=== PATIENT | female | born 1930 | race Caucasian/White ===

== ENCOUNTER → 2017-08-21 | Outpatient (CLI) | payer OTHER ==
[2017-08-21 10:02] LABS: HEMATOCRIT 30.7 % (37-47); HEMOGLOBIN 10.5 g/dL (12.0-16.0); MEAN CELL VOLUME 91.9 fL (80-100); MEAN CORPUSCULAR HEMOGLOBIN 31.4 pg (25-34); MEAN CORPUSCULAR HGB CONC 34.2 g/dl (32-36); MEAN PLATELET VOLUME 9.1 fL (7.4-10.4); PLATELET COUNT 233 K/uL (130-400); RED CELL DISTRIBUTION WIDTH CV 15.1 % (11.5-14.5); RED CELL DISTRIBUTION WIDTH SD 51.1 fL (36.4-46.3); WHITE BLOOD COUNT 4.56 K/uL (4.8-10.8)
[2017-08-21 10:49] LABS: ALBUMIN 2.5 gm/dl (3.4-5.0); ALT/SGPT 26 U/L (12-78); AST/SGOT 28 U/L (15-37); BLOOD UREA NITROGEN 9 mg/dl (7-18); CALCIUM 8.5 mg/dl (8.5-10.1); CARBON DIOXIDE 30 mmol/L (21-32); CREATININE 0.65 mg/dl (0.60-1.20); GLUCOSE 82 mg/dl (70-99); POTASSIUM 3.3 mmol/L (3.5-5.1); SODIUM 137 mmol/L (136-145)
[2017-08-21 10:59] LABS: ALKALINE PHOSPHATASE 67 U/L (45-117); TOTAL PROTEIN 5.9 gm/dl (6.4-8.2)
== END ==
LOC: C.LABFOXAC 09:13
PROVIDERS: ATTEND Internal Medicine
DX: I48.0 Paroxysmal atrial fibrillation (principal); D64.9 Anemia, unspecified

== ENCOUNTER → 2017-08-22 | Outpatient (CLI) | payer OTHER | LOC: C.LABFOXAC 08:46 | PROVIDERS: ATTEND Internal Medicine | DX: Z79.899 Other long term (current) drug therapy (principal) ==

== ENCOUNTER → 2017-09-04 | Outpatient (CLI) | payer OTHER | END | disposition home or self-care (01) | LOC: C.LABFOXAC 08:17 | PROVIDERS: ATTEND Internal Medicine | DX: K74.60 Unspecified cirrhosis of liver (principal) ==

== ENCOUNTER → 2017-09-06 | Outpatient (CLI) | payer OTHER ==
--- NOTE | 2017-09-10 07:36 | CODING QUERY NO DIAGNOSIS ---
: 1930 Valid Physician Order Needed A valid physician order must be submitted in order to properly bill for the service(s) provided, including date of service(s), valid diagnosis, and physician signature. If these tests are done on a recurring basis the original physician order must be submitted in order to code and bill for the service(s) provided. Please fax us the original, signed physician order so that we may expedite billing to [phone] DOS 09/06/2017 * Potassium Thank you [facility] Information Management
== END | disposition home or self-care (01) ==
LOC: C.LABFOXAC 08:00
PROVIDERS: ATTEND Internal Medicine
DX: E87.6 Hypokalemia (principal)

== ENCOUNTER → 2017-09-21 | Outpatient (CLI) | payer OTHER ==
[2017-09-21 08:35] LABS: HEMATOCRIT 32.5 % (37-47); HEMOGLOBIN 11.2 g/dL (12.0-16.0); MEAN CELL VOLUME 92.6 fL (80-100); MEAN CORPUSCULAR HEMOGLOBIN 31.9 pg (25-34); MEAN CORPUSCULAR HGB CONC 34.5 g/dl (32-36); MEAN PLATELET VOLUME 9.5 fL (7.4-10.4); PLATELET COUNT 196 K/uL (130-400); RED CELL DISTRIBUTION WIDTH CV 14.9 % (11.5-14.5); RED CELL DISTRIBUTION WIDTH SD 50.3 fL (36.4-46.3); WHITE BLOOD COUNT 5.59 K/uL (4.8-10.8)
[2017-09-21 08:45] LABS: ALBUMIN 2.7 gm/dl (3.4-5.0); ALT/SGPT 44 U/L (12-78); BLOOD UREA NITROGEN 13 mg/dl (7-18); CALCIUM 8.8 mg/dl (8.5-10.1); CARBON DIOXIDE 27 mmol/L (21-32); CREATININE 0.73 mg/dl (0.60-1.20); GLUCOSE 88 mg/dl (70-99); POTASSIUM 3.9 mmol/L (3.5-5.1); SODIUM 136 mmol/L (136-145)
[2017-09-21 08:55] LABS: ALKALINE PHOSPHATASE 90 U/L (45-117); AST/SGOT 36 U/L (15-37); TOTAL PROTEIN 6.3 gm/dl (6.4-8.2)
== END ==
LOC: C.LABFOXAC 07:45
PROVIDERS: ATTEND Internal Medicine
DX: I48.0 Paroxysmal atrial fibrillation (principal); D64.9 Anemia, unspecified

== ENCOUNTER → 2017-10-17 | Outpatient (CLI) | payer OTHER | END | disposition home or self-care (01) | LOC: C.LABFOXDH 07:53 | PROVIDERS: ATTEND Internal Medicine Hospice and Palliative Medicine | DX: E03.9 Hypothyroidism, unspecified (principal) ==

== ENCOUNTER 2017-11-03 02:01 | Inpatient (IN) | payer OTHER ==
[2017-11-03] VITALS (31 sets, daily range): BP systolic 62–107; BP diastolic 42–66; PULSE 67–90; TEMP 36.2–36.8; O2SAT 92–100; BMI 19.9
[~2017-11-03] VITALS: Ht 167.6 cm; Wt 55.8 kg
[2017-11-03] MEDS ORDERED: FENTANYL CITRATE INJ 50 MCG/1 ML 2 ML VIAL IV STA (02:45)
[2017-11-03 03:01] LABS: BASO % 0.3 %; BASO ABS # 0.04 K/uL (0-0.2); EOS % 0.5 %; EOS ABS # 0.07 K/uL (0-0.5); HEMATOCRIT 34.2 % (37-47); HEMOGLOBIN 11.8 g/dL (12.0-16.0); IG# 0.04 K/uL (0.00-0.02); LYMPH % 10.5 %; LYMPH ABS # 1.47 K/uL (1.2-3.4); MEAN CELL VOLUME 89.5 fL (80-100); MEAN CORPUSCULAR HEMOGLOBIN 30.9 pg (25-34); MEAN CORPUSCULAR HGB CONC 34.5 g/dl (32-36); MEAN PLATELET VOLUME 8.9 fL (7.4-10.4); MONO % 7.6 %; MONO ABS # 1.07 K/uL (0.11-0.59); NEUT % 80.8 %; NEUT ABS # 11.37 K/uL (1.4-6.5); PLATELET COUNT 221 K/uL (130-400); RED CELL DISTRIBUTION WIDTH CV 13.7 % (11.5-14.5); RED CELL DISTRIBUTION WIDTH SD 45.1 fL (36.4-46.3); WHITE BLOOD COUNT 14.06 K/uL (4.8-10.8)
[2017-11-03 03:10] LABS: INR 1.1 (0.9-1.1); PTT PATIENT 23.2 SECONDS (21.0-31.0)
[2017-11-03 03:19] LABS: ALBUMIN 3.1 gm/dl (3.4-5.0); ALT/SGPT 30 U/L (12-78); AST/SGOT 31 U/L (15-37); BLOOD UREA NITROGEN 15 mg/dl (7-18); CALCIUM 8.5 mg/dl (8.5-10.1); CARBON DIOXIDE 27 mmol/L (21-32); CREATININE 0.92 mg/dl (0.60-1.20); GLUCOSE 139 mg/dl (70-99); POTASSIUM 4.1 mmol/L (3.5-5.1); SODIUM 136 mmol/L (136-145)
[2017-11-03 03:24] LABS: ALKALINE PHOSPHATASE 109 U/L (45-117); TOTAL PROTEIN 7.1 gm/dl (6.4-8.2)
--- NOTE | 2017-11-03 04:15 | EMERGENCY ROOM VISIT NOTE ---
History First contact with patient: 02:26 Chief Complaint: FALL Stated Complaint: FALL/HIP PAIN History of Present Illness The patient is a 87 year old female who presents to the Emergency Room via EMS for evaluation of left hip pain following a fall. The patient is from [facility] and is unsure how she fell tonight. She reports left hip pain due to falling on the hip. She rates her discomfort a 7/10. The pain is sharp and worse with any movement of the hip. The pain is more tolerable when she is laying still. She denies any other injuries, although does have some bruising to the left side of the forehead. She denies any previous injuries to this hip. She denies any numbness or weakness. She is able to move her left foot without any difficulty. Review of Systems A complete 10 point review of systems was reviewed with the patient with pertinent positives and negatives as per history of present illness. All else were negative. Past Medical/Surgical History Medical Problems: (1) Hip fracture (2) Hypothyroidism Social History Smoking Status: Never Smoker Housing Status: assisted living Physical Exam Vital Signs Date Time Temp Pulse Resp B/P (MAP) Pulse Ox O2 Delivery O2 Flow Rate FiO2 11/03/17 03:50 62 16 96/52 100 Room Air 11/03/17 03:47 78 16 84/50 95 Room Air 11/03/17 02:54 68 100 Room Air 11/03/17 02:09 36.3 84 20 150/76 92 Room Air Physical Exam VITALS: Vitals are noted on the nurse's note and reviewed by myself. Vital signs stable. GENERAL: This is an 87-year-old female, in no acute distress, sitting upright in bed, thin. SKIN: There is a large hematoma to the left forehead with a small abrasion centrally. HEAD: Normocephalic atraumatic. EARS: External auditory canals clear, tympanic membranes pearly schmidt without erythema or effusion bilaterally. No hemotympanum. EYES: Pupils equal round and reactive to light and accommodation. Extraocular movements intact. NECK: Supple without nuchal rigidity. Cervical spine is nontender. . HEART: Regular rate and rhythm without murmurs gallops or rubs. LUNGS: Clear to auscultation bilaterally without wheezes, rales or rhonchi. MUSCULOSKELETAL: The left leg is shortened and externally rotated. Tenderness to palpation of the left hip. Dorsalis pedis pulse 2+. Full range of motion of the left knee and ankle. NEURO: Patient was alert and oriented to person place and time. Normal sensation over the left lower extremity. Medical Decision & Procedures ER Provider Diagnostic Interpretation: CT HEAD: No acute intracranial hemorrhage. Cerebral atrophy and microvascular ischemic changes in the periventricular and subcortical white matter. Calvarium is intact. Mastoid air cells and paranasal sinuses are clear. Small scalp hematoma overlying the left frontal bone. CT C SPINE: No fracture or subluxation. Moderate multilevel cervical spondylosis. Most significant at the C5-C6 and C6- C7 levels. Mild levocurvature. Radiologist: Delfin Nettles DO CHEST X-RAY: No acute process. PELVIS/HIP: Comminuted, displaced fracture of the left femoral shaft. Laboratory Results 11/03/17 02:46 Red Blood Count 3.82, Mean Corpuscular Volume 89.5, Mean Corpuscular Hemoglobin 30.9, Mean Corpuscular Hemoglobin Concent 34.5, Mean Platelet Volume 8.9, Neutrophils (%) (Auto) 80.8, Lymphocytes (%) (Auto) 10.5, Monocytes (%) (Auto) 7.6, Eosinophils (%) (Auto) 0.5, Basophils (%) (Auto) 0.3, Neutrophils # (Auto) 11.37, Lymphocytes # (Auto) 1.47, Monocytes # (Auto) 1.07, Eosinophils # (Auto) 0.07, Basophils # (Auto) 0.04 11/03/17 02:46 Test 11/03/17 02:46 11/03/17 03:30 White Blood Count 14.06 K/uL (4.8-10.8) Red Blood Count 3.82 M/uL (4.2-5.4) Hemoglobin 11.8 g/dL (12.0-16.0) Hematocrit 34.2 % (37-47) Mean Corpuscular Volume 89.5 fL (80-100) Mean Corpuscular Hemoglobin 30.9 pg (25-34) Mean Corpuscular Hemoglobin Concent 34.5 g/dl (32-36) Platelet Count 221 K/uL (130-400) Mean Platelet Volume 8.9 fL (7.4-10.4) Neutrophils (%) (Auto) 80.8 % Lymphocytes (%) (Auto) 10.5 % Monocytes (%) (Auto) 7.6 % Eosinophils (%) (Auto) 0.5 % Basophils (%) (Auto) 0.3 % Neutrophils # (Auto) 11.37 K/uL (1.4-6.5) Lymphocytes # (Auto) 1.47 K/uL (1.2-3.4) Monocytes # (Auto) 1.07 K/uL (0.11-0.59) Eosinophils # (Auto) 0.07 K/uL (0-0.5) Basophils # (Auto) 0.04 K/uL (0-0.2) RDW Standard Deviation 45.1 fL (36.4-46.3) RDW Coefficient of Variation 13.7 % (11.5-14.5) Immature Granulocyte % (Auto) 0.3 % Immature Granulocyte # (Auto) 0.04 K/uL (0.00-0.02) Prothrombin Time 11.1 SECONDS (9.0-12.0) Prothromb Time International Ratio 1.1 (0.9-1.1) Activated Partial Thromboplast Time 23.2 SECONDS (21.0-31.0) Partial Thromboplastin Ratio 0.9 Anion Gap 6.0 mmol/L (3-11) Est Creatinine Clear Calc Drug Dose 37.2 ml/min Estimated GFR () 64.4 Estimated GFR (Non- 55.6 BUN/Creatinine Ratio 15.9 (10-20) Calcium Level 8.5 mg/dl (8.5-10.1) Total Bilirubin 0.4 mg/dl (0.2-1) Direct Bilirubin 0.1 mg/dl (0-0.2) Aspartate Amino Transf (AST/SGOT) 31 U/L (15-37) Alanine Aminotransferase (ALT/SGPT) 30 U/L (12-78) Alkaline Phosphatase 109 U/L (45-117) Troponin I < 0.015 ng/ml (0-0.045) Total Protein 7.1 gm/dl (6.4-8.2) Albumin 3.1 gm/dl (3.4-5.0) Urine Color YELLOW Urine Appearance CLOUDY (CLEAR) Urine pH 6.0 (4.5-7.5) Urine Specific [place] 1.009 (1.000-1.030) Urine Protein NEG (NEG) Urine Glucose (UA) NEG (NEG) Urine Ketones NEG (NEG) Urine Occult Blood 1+ (NEG) Urine Nitrite NEG (NEG) Urine Bilirubin NEG (NEG) Urine Urobilinogen NEG (NEG) Urine Leukocyte Esterase LARGE (NEG) Urine WBC (Auto) >30 /hpf (0-5) Urine RBC (Auto) 0-4 /hpf (0-4) Urine Hyaline Casts (Auto) 1-5 /lpf (0-5) Urine Epithelial Cells (Auto) 5-10 /lpf (0-5) Urine Bacteria (Auto) 2+ (NEG) Urine Pathogenic Casts /lpf (0) Medications Administered Medications (Trade) Dose Ordered Sig/Viky Route Start Time Stop Time Status Last Admin Dose Admin Fentanyl Citrate (Fentanyl Inj) 50 mcg NOW STAT IV 11/03/17 02:45 11/03/17 02:47 DC 11/03/17 02:52 50 MCG ED Course The patient was evaluated as above. Labs were drawn and IV access was obtained. Patient was medicated with 50 mcg fentanyl for pain. Patient was reevaluated and findings were discussed. Case was discussed with the [facility] resident, Dr. Garcia. They agreed to evaluate the patient for admission. Medical Decision Differential diagnosis includes hip fracture, hip dislocation, contusion, intracranial bleed, C-spine fracture, among others. The patient is an 87-year-old female who presents today complaining of left hip pain after a fall. Labs revealed mild leukocytosis. X-ray of the pelvis/left hip showed an acute fracture as described above. Patient will be evaluated by the [facility] hospitalist team for further evaluation and inpatient management. Medication Reconcilliation Current Medication List: was personally reviewed by ak Blood Pressure Screening Patient's blood pressure: Low blood pressure (may be pt's baseline- will be followed by hospitalist) Impression Primary Impression: Hip fracture Departure Information Referrals Adrianne Gonzales (PCP) Patient Instructions My [facility] Health Problem Qualifiers Primary Impression: Hip fracture Encounter type: initial encounter Fracture type: closed Laterality: left Qualified Codes: S72.002A - Fracture of unspecified part of neck of left femur , initial encounter for closed fracture
[2017-11-03] MEDS ORDERED: SOD PHOSPHATE/SOD BIPHOSPHATE ENEMA 132 ML BTL PR PRN (05:00)
[2017-11-03] MEDS ORDERED: POLYETHYLENE (MIRALAX) 17 GM PACK PO PRN (05:00)
[2017-11-03] MEDS ORDERED: MAGNESIUM HYDROXIDE SUSP 30 ML UDC PO PRN ×2 (05:00→11:30)
[2017-11-03] MEDS ORDERED: ONDANSETRON INJ 2 MG/ML 2 ML VIAL IV PRN ×3 (05:00→11:30)
[2017-11-03] MEDS ORDERED: MoRPHine SULFATE 2 MG/ML CARP IV PRN (05:00)
[2017-11-03] MEDS ORDERED: NALOXONE HCL 0.4 MG/1 ML VIAL/CARP IV PRN (05:00)
[2017-11-03] MEDS ORDERED: BISACODYL 10 MG SUPP PR PRN (05:00)
[2017-11-03] MEDS ORDERED: MoRPHine SULFATE 4 MG/ML 1 ML CARP\\VIAL IV PRN ×2 (05:00→11:30)
--- NOTE | 2017-11-03 05:29 | History and Physical ---
History & Physical Date & Time of Service: Nov 03, 2017 at 05:03 Chief Complaint: Fall/Hip Pain Primary Care Physician: Adrianne Gonzales History of Present Illness Source: patient, hospital records Patient is an 87 year old female who lives at [facility] that was cooking dinner earlier this evening and had a fall to the ground as she lost her footing and slipped. She did hit her head and she also fell onto her left side. She denies any pre-syncope, loss of consciousness, urinary/bowel incontinence, tongue biting or seizure like activity. Patient does not that she has been more confused over the past few days. She denies any dysuria, hematuria, ab pain, back pain, fevers or chills. She says that her pain is over her left hip. It is sharp in nature and worse with movement. She rates the pain as a 7/10. She denies any numbness or tingling down the leg. In the ED her blood pressure was mildly elevated at 150/76 yet her other vital signs were normal. Her labs were significant for a WCC of 14, Hgb of 11.8. Her UA did appear to show a urinary tract infection. Xray of her left hip did show a hip fracture. She had a CT of her cervical spine and head which did not show any acute abnormalities. Past Medical/Surgical History Medical Problems: (1) Hip fracture (2) Hypothyroidism Family History Noncontributory Social History Smoking Status: Never Smoker Smokeless Tobacco Use: No Alcohol Use: none Drug Use: none Marital Status: Housing status: lives alone Occupational Status: retired Immunizations History of Influenza Vaccine: Unknown History of Tetanus Vaccine?: Unknown History of Pneumococcal: Unknown History of Hepatitis B Vaccine: Unknown Allergies Coded Allergies: No Known Allergies (Unverified , 11/03/17) Review of Systems Constitutional: + weakness, No fever, No chills Eyes: No worsening of vision, No eye pain, No diplopia ENT: No hearing loss, No nasal symptoms, No sore throat, No tinnitus, No trouble swallowing Respiratory: No cough, No sputum, No shortness of breath Cardiovascular: No chest pain, No orthopnea, No edema, No palpitations Abdomen: No pain, No nausea, No vomiting, No diarrhea, No constipation Musculoskeletal: + joint pain, + muscle pain, No swelling, No calf pain Genitourinary - Female: No dysuria, No urinary frequency, No urinary urgency, No urinary incontinence Neurologic: + weakness, No memory loss, No paralysis, No numbness/tingling, No balance problems Hematologic / Lymphatic: No abnormal bleeding/bruising, No clotting problems Integumentary: No rash, No itch, No new/changing skin lesions Physical Exam Vital Signs Date Time Temp Pulse Resp B/P (MAP) Pulse Ox O2 Delivery O2 Flow Rate FiO2 11/03/17 03:50 62 16 96/52 100 Room Air 11/03/17 03:47 78 16 84/50 95 Room Air 11/03/17 02:54 68 100 Room Air 11/03/17 02:09 36.3 84 20 150/76 92 Room Air General Appearance: WD/WN, no apparent distress, + thin Head: + pertinent finding (hematoma over left scalp, painful to palpation) Eyes: normal inspection, PERRL ENT: normal ENT inspection, hearing grossly normal, pharynx normal Neck: supple, no adenopathy, no JVD, no carotid bruits, trachea midline Respiratory/Chest: lungs clear, no respiratory distress, no accessory muscle use Cardiovascular: regular rate, rhythm, no murmur, normal peripheral pulses Abdomen/GI: normal bowel sounds, non tender, soft Extremities/Musculoskelatal: normal inspection, no calf tenderness, no pedal edema, non-tender, + pertinent finding (left knee flexed and hip externall rotated, left hip swelling with pain to palpation over the left hip) Neurologic/Psych: microsoft crm developer II-XII nml as tested, alert, normal mood/affect, + disoriented (orientated to person, and time but not place), + pertinent finding (sensation is intact in the distal extremities, 5/5 power on R lower extremity, unable to move left hip secondary to pain) Skin: normal color, warm/dry, no rash Diagnostics Laboratory Results Results Past 24 Hours Test 11/03/17 02:46 11/03/17 03:30 Range/Units White Blood Count 14.06 4.8-10.8 K/uL Red Blood Count 3.82 4.2-5.4 M/uL Hemoglobin 11.8 12.0-16.0 g/dL Hematocrit 34.2 37-47 % Mean Corpuscular Volume 89.5 80-100 fL Mean Corpuscular Hemoglobin 30.9 25-34 pg Mean Corpuscular Hemoglobin Concent 34.5 32-36 g/dl Platelet Count 221 130-400 K/uL Mean Platelet Volume 8.9 7.4-10.4 fL Neutrophils (%) (Auto) 80.8 % Lymphocytes (%) (Auto) 10.5 % Monocytes (%) (Auto) 7.6 % Eosinophils (%) (Auto) 0.5 % Basophils (%) (Auto) 0.3 % Neutrophils # (Auto) 11.37 1.4-6.5 K/uL Lymphocytes # (Auto) 1.47 1.2-3.4 K/uL Monocytes # (Auto) 1.07 0.11-0.59 K/uL Eosinophils # (Auto) 0.07 0-0.5 K/uL Basophils # (Auto) 0.04 0-0.2 K/uL RDW Standard Deviation 45.1 36.4-46.3 fL RDW Coefficient of Variation 13.7 11.5-14.5 % Immature Granulocyte % (Auto) 0.3 % Immature Granulocyte # (Auto) 0.04 0.00-0.02 K/uL Prothrombin Time 11.1 9.0-12.0 SECONDS Prothromb Time International Ratio 1.1 0.9-1.1 Activated Partial Thromboplast Time 23.2 21.0-31.0 SECONDS Partial Thromboplastin Ratio 0.9 Sodium Level 136 136-145 mmol/L Potassium Level 4.1 3.5-5.1 mmol/L Chloride Level 103 98-107 mmol/L Carbon Dioxide Level 27 21-32 mmol/L Anion Gap 6.0 3-11 mmol/L Blood Urea Nitrogen 15 7-18 mg/dl Creatinine 0.92 0.60-1.20 mg/dl Est Creatinine Clear Calc Drug Dose 37.2 ml/min Estimated GFR () 64.4 Estimated GFR (Non- 55.6 BUN/Creatinine Ratio 15.9 10-20 Random Glucose 139 70-99 mg/dl Calcium Level 8.5 8.5-10.1 mg/dl Total Bilirubin 0.4 0.2-1 mg/dl Direct Bilirubin 0.1 0-0.2 mg/dl Aspartate Amino Transf (AST/SGOT) 31 15-37 U/L Alanine Aminotransferase (ALT/SGPT) 30 12-78 U/L Alkaline Phosphatase 109 45-117 U/L Troponin I < 0.015 0-0.045 ng/ml Total Protein 7.1 6.4-8.2 gm/dl Albumin 3.1 3.4-5.0 gm/dl Urine Color YELLOW Urine Appearance CLOUDY CLEAR Urine pH 6.0 4.5-7.5 Urine Specific [place] 1.009 1.000-1.030 Urine Protein NEG NEG Urine Glucose (UA) NEG NEG Urine Ketones NEG NEG Urine Occult Blood 1+ NEG Urine Nitrite NEG NEG Urine Bilirubin NEG NEG Urine Urobilinogen NEG NEG Urine Leukocyte Esterase LARGE NEG Urine WBC (Auto) >30 0-5 /hpf Urine RBC (Auto) 0-4 0-4 /hpf Urine Hyaline Casts (Auto) 1-5 0-5 /lpf Urine Epithelial Cells (Auto) 5-10 0-5 /lpf Urine Bacteria (Auto) 2+ NEG Urine Pathogenic Casts 0 /lpf Microbiology Results 11/03/17 Urine Culture, Received Pending Diagnostic Radiology CT HEAD: No acute intracranial hemorrhage. Cerebral atrophy and microvascular ischemic changes in the periventricular and subcortical white matter. Calvarium is intact. Mastoid air cells and paranasal sinuses are clear. Small scalp hematoma overlying the left frontal bone. CT C SPINE: No fracture or subluxation. Moderate multilevel cervical spondylosis. Most significant at the C5-C6 and C6- C7 levels. Mild levocurvature. Left Hip Xray displaced left hip fracture EKG Sinus w/ PVC's Impression Assessment and Plan 87 year old female with PMH of hypothyroidism is here with a left hip fracture secondary to a fall likely due to UTI Left hip fracture - Ortho consult placed - IV morphine 2mg q2prn and zofran 4mg q4 prn - Hip to be placed in traction - Ro in place - NPO (patient states she is extremely hungry; I told her that if ortho want to take her to surgery today then she will need to remain NPO however if they decide to go tomorrow then the doctors will place a food order for her) UTI - levofloxacin 500mg IV once daily - urine culture pending - IVF NS Maintenance w/ 100mls/hr - [facility] Hypothyroidism - patient states she is on very low dose but is unsure of dose - daughter is going to get dose today for us and let us know DVT prophylaxis - lovenox 40mg subq DNR Attending addendum: I have physically seen this patient, have supervised the medical residents activities, and agree with the H&P unless as otherwise noted. Assessment and Plan: Left hip fracture-- Admit to medical surgical floor. N.p.o. status IV fluids Morphine 2 mg IV every 2 hours as needed. Zofran 4 mg IV every 6 hours as needed. Pantoprazole 40 mg IV daily. Consult orthopedics. UTI-- Start on ceftriaxone 1 g IV daily. Follow urine culture and sensitivity. Advanced Directives Existing Advance Directive: Yes Existing Living Will: Yes Resuscitation Status DNR VTE Prophylaxis Will order VTE Prophylaxis: Yes
[2017-11-03] MEDS ORDERED: MoRPHine SULFATE 2 MG/ML CARP ONE (05:51)
[2017-11-03] MEDS ORDERED: PATIENT'S ALLERGY INFO NEEDS ENTERED SCH (06:15)
[2017-11-03] MEDS ORDERED: INFLUENZA VIRUS QUAD VACCINE 0.5 ML SYR IM. ONE (06:45)
[2017-11-03] MEDS ORDERED: PNEUMOCOCCAL POLYSACCHARIDES 25 MCG/0.5 ML VIAL/SYR IM. ONE (06:45)
[2017-11-03] MEDS ORDERED: PNEUMOCOCCAL ADMINISTRATION CHARGE ONE (06:45)
[2017-11-03] MEDS ORDERED: INFLUENZA ADMINISTRATION CHARGE ONE (06:45)
--- NOTE | 2017-11-03 06:48 | DIAGNOSTIC IMAGING REPORT ---
CHEST ONE VIEW PORTABLE CLINICAL HISTORY: fall trauma. Pain. COMPARISON STUDY: No previous studies for comparison. FINDINGS: The bones soft tissues and hemidiaphragms are normal. The cardiomediastinal silhouette is normal. The lungs are clear. The pulmonary vasculature is normal. IMPRESSION: Negative chest. The above report was generated using voice recognition software. It may contain grammatical, syntax or spelling errors. Electronically signed by: Dayton Cha M.D. 11/03/2017 6:47 AM Dictated Date/Time: 11/03/2017 6:46 AM
--- NOTE | 2017-11-03 06:55 | DIAGNOSTIC IMAGING REPORT ---
CERVICAL SPINE W/O CT DOSE: 1007.69 mGy.cm HISTORY: Trauma. Pain. fall, head injury TECHNIQUE: Multiaxial CT images of the cervical spine were performed and reformatted in the sagittal and coronal plane without the use of contrast. A dose lowering technique was utilized adhering to the principles of ALARA. COMPARISON: None. FINDINGS: No fractures. No subluxation. Prevertebral soft tissues and the C1-C2 interval are intact. No pneumothorax. Degenerative disc change throughout. This is most prominent from C5 through C7. IMPRESSION: Degenerative change. No acute bony abnormality. The above report was generated using voice recognition software. It may contain grammatical, syntax or spelling errors. Electronically signed by: Dayton Cha M.D. 11/03/2017 6:54 AM Dictated Date/Time: 11/03/2017 6:53 AM
--- NOTE | 2017-11-03 06:56 | DIAGNOSTIC IMAGING REPORT ---
HEAD WITHOUT CONTRAST (CT) CT DOSE: HISTORY: Trauma fall, head injury, hematoma left forehead TECHNIQUE: Multiaxial CT images of the head were performed without the use of intravenous contrast. A dose lowering technique was utilized adhering to the principles of ALARA. Comparison: None. Findings: The paranasal sinuses and mastoid air cells are clear. The calvarium and skull base are intact. The ventricles and sulci are within normal limits. There is no mass, hematoma, midline shift, or acute infarct. Impression: No acute intracranial abnormality. Chronic small vessel and atrophic change. The above report was generated using voice recognition software. It may contain grammatical, syntax or spelling errors. Electronically signed by: Dayton Cha M.D. 11/03/2017 6:55 AM Dictated Date/Time: 11/03/2017 6:54 AM
--- NOTE | 2017-11-03 06:58 | DIAGNOSTIC IMAGING REPORT ---
L PELVIS/UNILATERAL HIP 2-3VIEWS CLINICAL HISTORY: fal trauma. Pain. COMPARISON: None. DISCUSSION: Oblique fracture proximal femoral shaft with evidence for intertrochanteric extension. Moderate superior migration of the left femoral shaft. No evidence for dislocation. No evidence for acetabular protrusion. There is no evidence for soft tissue swelling. IMPRESSION: Oblique reaction or proximal femoral shaft with intertrochanteric extension. Superior migration femoral shaft. No evidence of dislocation. The above report was generated using voice recognition software. It may contain grammatical, syntax or spelling errors. Electronically signed by: Dayton Cha M.D. 11/03/2017 6:57 AM Dictated Date/Time: 11/03/2017 6:56 AM
[2017-11-03] MEDS ORDERED: SODIUM CHLORIDE 0.9% 1000ML 1,000 ML IV SCH ×2 (07:00→13:45)
[2017-11-03] MEDS: LEVOFLOXACIN / D5W 500 MG in PREMIXED IN D5W 100 ML IV SCH (07:02)
--- NOTE | 2017-11-03 07:49 | HISTORY & PHYSICAL EXAMINATION ---
DATE OF ADMISSION: 11/03/2017 CHIEF COMPLAINT: Left hip pain. HISTORY OF PRESENT ILLNESS: An 87-year-old female who was in [facility] fell while cooking dinner, broke her left hip. She has significant comminution and shortening. She has marked pain and spasm. She did hit her head and she was evaluated. She denied any presyncope, loss of consciousness. At present she is in Platt's traction and complains of pain. PAST MEDICAL AND PAST SURGICAL HISTORY: Remarkable for hypothyroidism. SOCIAL HISTORY: Reveals she never smoked. Social alcohol. No drug use. She is . She lives alone. She is retired. REVIEW OF SYSTEMS: Reveals no chest pain, shortness of breath, fever, chills, nausea, vomiting or headache. PHYSICAL EXAMINATION: GENERAL: She smiles and converses well. She has baseline dementia. HEENT: Reveals a contusion to the front of her head. There is bandage. She denies any neck pain. She has no pain to palpation. Her eye movements are intact. ABDOMEN: soft, nontender. EXTREMITIES: Upper extremities reveal no trauma. She moves both hands, wrists, elbows, shoulders well. Right hip without any gross findings. Left hip reveals shortened external rotation, pain with any type of movement. Neurovascular check of sciatic nerve distally within normal limits, both deep and superficial peroneal components. LABORATORY DATA: Blood work reveals hematocrit 34.2. White count 14,000, platelet count 221. INR is 1.1. Renal function is acceptable. Random glucose 139. Urine has some white cells in it but also has 10 epithelial cells in it as well. IMAGES: CT of the head reveals no hemorrhage. C-spine reveals no fracture. Hip x-ray reveals significant intertrochanteric subtrochanteric femur fracture with marked comminution. ASSESSMENT: Intertrochanteric unstable hip fracture with subtroch extension. At this point in time, we will need to treat with troch nail. Likely use intermediate nail. Discussed in detail with patient's niece who is coming in to sign the consent. Consent obtained from the patient, however, with the short term memory loss it is best to get permission from the next of kin, that is power of commercial attorney. She will come in sometime this morning. We will have her sign the consent. Discussed with hospitalist coverage. We will proceed with surgery sometime today.
[2017-11-03] MEDS ORDERED: NALOXONE HCL 0.4 MG/1 ML VIAL/CARP IV STA ×2 (08:44→08:49)
[2017-11-03] MEDS ORDERED: ENOXAPARIN 40 MG/0.4 ML SYR SQ SCH (09:00)
[2017-11-03 09:09] LABS: HEMOGLOBIN 9.3 g/dL (12.0-16.0); MEAN CELL VOLUME 89.4 fL (80-100); MEAN CORPUSCULAR HEMOGLOBIN 30.8 pg (25-34); MEAN PLATELET VOLUME 8.7 fL (7.4-10.4); PLATELET COUNT 161 K/uL (130-400); RED CELL DISTRIBUTION WIDTH CV 13.7 % (11.5-14.5); RED CELL DISTRIBUTION WIDTH SD 44.9 fL (36.4-46.3); WHITE BLOOD COUNT 11.79 K/uL (4.8-10.8)
[2017-11-03 09:11] LABS: MEAN CORPUSCULAR HGB CONC 34.4 g/dl (32-36)
[2017-11-03] MEDS ORDERED: EpHEDrine SULFATE INJ 50 MG/ML AMP IV PRN (09:30)
[2017-11-03] MEDS ORDERED: FENTANYL CITRATE INJ 50 MCG/1 ML 2 ML VIAL IV PRN (09:30)
[2017-11-03] MEDS ORDERED: HYDROmorphone INJ 1 MG/ML SYR IV PRN (09:30)
[2017-11-03] MEDS ORDERED: PHENYLEPHRINE 100MCG/ML 5ML SYR IV PRN (09:30)
[2017-11-03] MEDS ORDERED: ATROPINE SULFATE 0.1 MG/ML 5ML SYR IV PRN (09:30)
[2017-11-03] MEDS ORDERED: MIDAZOLAM HCL 1 MG/ML 2ML VIAL ONE (09:33)
[2017-11-03] MEDS ORDERED: FENTANYL CITRATE INJ 50 MCG/1 ML 2 ML VIAL ONE (09:33)
[2017-11-03] MEDS ORDERED: KETAMINE HCL INJ 50 MG/ML 10 ML VIAL ONE (09:34)
[2017-11-03] MEDS ORDERED: BUPIVACAINE 0.5 % 5 MG/1 ML PF 10ML VIAL ONE (09:36)
--- NOTE | 2017-11-03 09:38 | Family Medicine Progress Note ---
Progress Note Date of Service Nov 03, 2017. Subjective Pt is lying in bed, appears tired. States that her right hip is indeed still in pain when she moves it. Has received fentanyl and also 2mg morphine this morning. I was called to the room by nurse due to SBP 64. Pt denies lightheadedness, syncope, chest pain, difficulty breathing. Pt also denies dysuria or diarrhea. ROS See HPI for pertinent positives and negatives. Medications Current Inpatient Medications Medications (Trade) Dose Ordered Sig/Viky Route Start Time Stop Time Status Last Admin Dose Admin Naloxone HCl (Narcan Inj) 0.1 mg PRN PRN IV 11/03/17 05:00 12/03/17 04:59 Senna/Docusate Sodium (Senokot S Tab) 2 tab HS PO 11/03/17 21:00 12/03/17 20:59 Bisacodyl (Dulcolax Supp) 10 mg DAILY PRN NC 11/03/17 05:00 12/03/17 04:59 Sodium Biphosphate/ Sodium Phosphate (Fleet Enema) 132 ml PRN PRN NC 11/03/17 05:00 Levofloxacin 500 mg/Prmx 100 ml @ 100 mls/hr Q24H IV 11/03/17 06:30 11/13/17 06:29 11/03/17 07:02 100 MLS/HR Dextrose/Sodium Chloride 1,000 ml @ 50 mls/hr Q20H IV 11/03/17 12:00 12/03/17 11:59 Cefazolin Sodium 1000 mg/Syringe 7.5 ml @ 100 mls/hr Q8H IV 11/03/17 16:00 11/04/17 00:05 Ondansetron HCl (Zofran Inj) 4 mg Q6H PRN IV 11/03/17 11:30 12/03/17 11:29 Acetaminophen (Tylenol Tab) 650 mg Q6H PRN PO 11/03/17 11:30 12/03/17 11:29 Oxycodone HCl (Roxicodone Immediate Rel Tab) 5 mg Q6HWA PRN PO 11/03/17 11:30 11/17/17 11:29 Morphine Sulfate (MoRPHine SULFATE INJ) If PO analgesic is order... Q4HWA PRN IV 11/03/17 11:30 11/17/17 11:29 Polyethylene (Miralax Powder Packet) 17 gm Q6 PO 11/05/17 06:00 12/05/17 05:59 Magnesium Hydroxide (Milk Of Magnesia Susp) 30 ml DAILY PRN PO 11/03/17 11:30 12/03/17 11:29 Hydromorphone HCl (Dilaudid Inj) 0.5 mg Q4HWA PRN IV 11/03/17 11:45 11/17/17 11:44 Ketorolac Tromethamine (Toradol Inj) 15 mg Q6H PRN IV. 11/03/17 12:00 11/04/17 11:59 Heparin Sodium (Porcine) (Heparin Sq 5000 Unit/0.5ml) 5,000 unit Q12H SQ 11/03/17 21:00 12/03/17 20:59 Objective Vital Signs Date Time Temp Pulse Resp B/P (MAP) Pulse Ox O2 Delivery O2 Flow Rate FiO2 11/03/17 14:45 36.3 71 20 84/51 100 4.0 11/03/17 14:10 36.2 68 16 79/45 93 5.0 11/03/17 13:58 90/50 (63) 100 Nasal Cannula 4.0 11/03/17 13:15 77 16 62/42 (49) 100 11/03/17 12:40 68 12 103/48 100 Nasal Cannula 2 11/03/17 12:25 74 12 103/52 100 Nasal Cannula 2 11/03/17 12:15 68 12 106/49 100 Nasal Cannula 2 11/03/17 12:07 98/52 11/03/17 12:05 36.3 80 12 82/52 100 Nasal Cannula 2 11/03/17 11:55 80 12 109/62 100 Nasal Cannula 2 11/03/17 11:45 76 14 94/50 100 Nasal Cannula 2 11/03/17 11:35 69 14 92/45 100 Oxymask 10 11/03/17 11:25 74 14 99/47 100 Oxymask 10 11/03/17 11:23 97/40 11/03/17 11:21 76/47 11/03/17 11:19 84/52 11/03/17 11:15 36.0 72 14 80/48 100 Oxymask 10 11/03/17 09:04 73 16 107/65 (79) 96 11/03/17 08:32 76 16 62/42 (49) 96 Room Air 11/03/17 07:34 Room Air 11/03/17 07:10 36.5 67 19 75/45 (55) 92 Room Air 11/03/17 05:40 36.7 79 21 100/66 Room Air 11/03/17 05:14 67 16 98/56 97 11/03/17 03:50 62 16 96/52 100 Room Air 11/03/17 03:47 78 16 84/50 95 Room Air 11/03/17 02:54 68 100 Room Air 11/03/17 02:09 36.3 84 20 150/76 92 Room Air Physical Exam Notes: GENERAL: Awake, alert, frail-appearing, in no distress. Cachectic. HENT: Normocephalic, atraumatic. EYES: Normal conjunctiva. Sclera non-icteric. NECK: Supple. FROM. No JVD. RESPIRATORY: Clear to auscultation. CARDIAC: Regular rate, normal rhythm. Extremities warm and well perfused. Pulses equal. LOWER EXTREMITIES: Calves are equal size bilaterally and non-tender. No edema. No discoloration. NEURO: No motor deficits noted. SKIN: No rash or jaundice noted. Laboratory Results 11/03/17 08:51 11/03/17 11:40 11/03/17 02:46 Test 11/03/17 02:46 11/03/17 03:30 11/03/17 08:51 11/03/17 08:57 Immature Granulocyte % (Auto) 0.3 % White Blood Count 14.06 K/uL (4.8-10.8) Red Blood Count 3.82 M/uL (4.2-5.4) 3.02 M/uL (4.2-5.4) Hemoglobin 11.8 g/dL (12.0-16.0) Hematocrit 34.2 % (37-47) Mean Corpuscular Volume 89.5 fL (80-100) 89.4 fL (80-100) Mean Corpuscular Hemoglobin 30.9 pg (25-34) 30.8 pg (25-34) Mean Corpuscular Hemoglobin Concent 34.5 g/dl (32-36) 34.4 g/dl (32-36) Platelet Count 221 K/uL (130-400) Mean Platelet Volume 8.9 fL (7.4-10.4) 8.7 fL (7.4-10.4) Neutrophils (%) (Auto) 80.8 % Lymphocytes (%) (Auto) 10.5 % Monocytes (%) (Auto) 7.6 % Eosinophils (%) (Auto) 0.5 % Basophils (%) (Auto) 0.3 % Neutrophils # (Auto) 11.37 K/uL (1.4-6.5) Lymphocytes # (Auto) 1.47 K/uL (1.2-3.4) Monocytes # (Auto) 1.07 K/uL (0.11-0.59) Eosinophils # (Auto) 0.07 K/uL (0-0.5) Basophils # (Auto) 0.04 K/uL (0-0.2) Immature Granulocyte # (Auto) 0.04 K/uL (0.00-0.02) Prothrombin Time 11.1 SECONDS (9.0-12.0) Prothromb Time International Ratio 1.1 (0.9-1.1) Activated Partial Thromboplast Time 23.2 SECONDS (21.0-31.0) Partial Thromboplastin Ratio 0.9 Anion Gap 6.0 mmol/L (3-11) Est Creatinine Clear Calc Drug Dose 37.2 ml/min Estimated GFR () 64.4 Estimated GFR (Non- 55.6 BUN/Creatinine Ratio 15.9 (10-20) Calcium Level 8.5 mg/dl (8.5-10.1) Total Bilirubin 0.4 mg/dl (0.2-1) Direct Bilirubin 0.1 mg/dl (0-0.2) Aspartate Amino Transf (AST/SGOT) 31 U/L (15-37) Alanine Aminotransferase (ALT/SGPT) 30 U/L (12-78) Alkaline Phosphatase 109 U/L (45-117) Total Protein 7.1 gm/dl (6.4-8.2) Albumin 3.1 gm/dl (3.4-5.0) Urine Color YELLOW Urine Appearance CLOUDY (CLEAR) Urine pH 6.0 (4.5-7.5) Urine Specific Boling 1.009 (1.000-1.030) Urine Protein NEG (NEG) Urine Glucose (UA) NEG (NEG) Urine Ketones NEG (NEG) Urine Occult Blood 1+ (NEG) Urine Nitrite NEG (NEG) Urine Bilirubin NEG (NEG) Urine Urobilinogen NEG (NEG) Urine Leukocyte Esterase LARGE (NEG) Urine WBC (Auto) >30 /hpf (0-5) Urine RBC (Auto) 0-4 /hpf (0-4) Urine Hyaline Casts (Auto) 1-5 /lpf (0-5) Urine Epithelial Cells (Auto) 5-10 /lpf (0-5) Urine Bacteria (Auto) 2+ (NEG) Urine Pathogenic Casts /lpf (0) RDW Standard Deviation 44.9 fL (36.4-46.3) RDW Coefficient of Variation 13.7 % (11.5-14.5) Troponin I < 0.015 ng/ml (0-0.045) Date/Time Source Procedure Growth Status 11/03/17 06:21 Nasal MRSA DNA Surveillance Screen - Final Specimen Negative for MRSA by DNA Probe Complete Assessment and Plan 87F here after mechanical fall, assessed in ED found to have left hip fracture. Admitted for orthopedic eval, underwent surgery this AM for intertrochanteric nail. Pre and post op has been hypotensive. PMH: hypothyroidism Left hip fracture Dr. Cavazos to operate this AM - trochanteric nail Hypotensive/shock ?hemorrhagic - blood loss from fracture. Stat repeat CBC shows Hgb from 11.8 -- >9.3-->8.8, so perhaps somewhat contributory. HR is stable in 60s-70s, pt asymptomatic otherwise. ?hypovolemia due to dehydration from UTI? Ordered 1L NS bolus, and additionally post op ?Iatrogenic - from the morphine 2mg and fentanyl - given .2 mg Narcan. On pre-op recheck BP 107/65, HR 73. Repeat ECG shows sinus rhythm with PAC's, no change from previous. Trop x2 negative. Post op pt's pressures dropped again, and so decision made to admit to ICU for evaluation and treatment. UTI asymptomatic however given orthopedic situation, think it prudent to emprically treat. Levofloxacin 500mg given this AM. DVT ppx: Lovenox Code: DNR Dispo: ICU Resident Physician Supervision Note: I interviewed and examined the patient. Discussed with Dr. Wen and agree with findings and plan as documented in the note. Any exceptions or clarifications are listed here: None Documented By: Hang Perry feeling suprisingly OK but BP low pale, vitals noted BP 60/40 when i see her. pale/mildly diaphoretic, otherwise surprisingly not in distress hypovolemic (presumably hemorrhagic) shock - with elements of distributive probably related to medications -likely superimposed on low baseline BP explaining her general lack of sx, but still lower than perfusing -blood, fluid, follow closely - initially moved to tele but even there was too unstable and had to quickly move to ICU hypoxia -follow closely low threshold for bipap although may also be inaccurate pulse ox due to vascular clampdown. CXR clear. otherwise as above Continued [facility] stay due to: multiple IV medications needed Discharge planning: rehab hospital Resident Tracking Resident Involvement: Resident Care Provided Care Provided: Adult Hospital Medicine
[2017-11-03] MEDS ORDERED: BACITRACIN 50000 UNIT VIAL ONE (09:47)
[2017-11-03] MEDS ORDERED: PHENYLEPHRINE 100MCG/ML 5ML SYR ONE (10:25)
[2017-11-03] MEDS ORDERED: PROPOFOL IV EMULSION 10 MG/ML 20 ML VIAL IV ONE (10:25)
[2017-11-03] MEDS ORDERED: PHENYLEPHRINE HCL INJ 10 MG/ML VIAL ONE (10:25)
[2017-11-03] MEDS ORDERED: ROCURONIUM BROMIDE 10 MG/ML 5 ML VIAL IV ONE (10:25)
[2017-11-03] MEDS ORDERED: ONDANSETRON INJ 2 MG/ML 2 ML VIAL ONE (10:25)
[2017-11-03] MEDS ORDERED: NEOSTIGMINE METHYLSULFATE 5 MG/5 ML SYR ONE (10:25)
--- NOTE | 2017-11-03 11:09 | [facility] Post Operative Brief Note ---
Immediate Operative Summary Operative Date Nov 03, 2017. Pre-Operative Diagnosis Left hip: Intertrochanteric unstable hip fracture with subtrochanteric extension Post-Operative Diagnosis same as preop Procedure(s) Performed Left hip: Open reduction internal fixation of intertrochanter and subtrochanter with trochanteric nailing Surgeon Dirk Ear Nose Throat Physician Surgeon(s) Jose Hendricks MD Fellow Estimated Blood Loss 150 ml Findings Consistent with Post-Op Diagnosis Fluids (cc crystalloids) 1400cc Specimens none Drains None Anesthesia Type General Complication(s) none Disposition Accompanied Pt To Recover: no Disposition: Recovery Room / PACU
--- NOTE | 2017-11-03 11:18 | DIAGNOSTIC IMAGING REPORT ---
L HIP OR FILMS CLINICAL HISTORY: LEFT HIP FXtrauma. Pain. COMPARISON STUDY: Hip films same date FLUOROSCOPY TIME: 105 seconds. FINDINGS: Left hip nailing procedure. Hip is aligned anatomically. No evidence of dislocation. IMPRESSION: Anatomic alignment post left hip nailing The above report was generated using voice recognition software. It may contain grammatical, syntax or spelling errors. Electronically signed by: Dayton Cha M.D. 11/03/2017 11:17 AM Dictated Date/Time: 11/03/2017 11:16 AM
[2017-11-03] MEDS ORDERED: HYDROmorphone INJ 0.5 MG/0.5 ML SYR IV PRN (11:45)
[2017-11-03 11:46] LABS: HEMATOCRIT 26.1 % (37-47); HEMOGLOBIN 8.8 g/dL (12.0-16.0)
--- NOTE | 2017-11-03 11:59 | Anesthesiology Progress Note ---
Anesthesia Post Op Note Date & Time Nov 03, 2017 at 11:58 Vital Signs Pain Intensity: 3 Vital Signs Past 12 Hours Date Time Temp Pulse Resp B/P (MAP) Pulse Ox O2 Delivery O2 Flow Rate FiO2 11/03/17 11:15 36.0 72 14 80/48 100 Oxymask 10 11/03/17 09:04 73 16 107/65 (79) 96 11/03/17 08:32 76 16 62/42 (49) 96 Room Air 11/03/17 07:34 Room Air 11/03/17 07:10 36.5 67 19 75/45 (55) 92 Room Air 11/03/17 05:40 36.7 79 21 100/66 Room Air 11/03/17 05:14 67 16 98/56 97 11/03/17 03:50 62 16 96/52 100 Room Air 11/03/17 03:47 78 16 84/50 95 Room Air 11/03/17 02:54 68 100 Room Air 11/03/17 02:09 36.3 84 20 150/76 92 Room Air Notes Mental Status: alert / awake / arousable, participated in evaluation Pt Amnestic to Procedure: Yes Nausea / Vomiting: adequately controlled Pain: adequately controlled Airway Patency, RR, SpO2: stable & adequate BP & HR: stable & adequate Hydration State: stable & adequate Anesthetic Complications: no major complications apparent Awake, no complaints.BP stable at baseline.
--- NOTE | 2017-11-03 12:07 | OPERATIVE REPORT ---
DATE OF OPERATION: 11/03/2017 SURGEON: Randy Cavazos MD GEODETIC COMPUTATOR: Felipe. PREOPERATIVE DIAGNOSIS: Intertrochanteric/subtrochanteric femur fracture, left lower extremity. POSTOPERATIVE DIAGNOSIS: Same. OPERATION PERFORMED: Open reduction and internal fixation with locked troch nail, intermediate length. SUMMARY OF IMPLANTS: An 11 helical blade, IM ahsan 11 mm x 130 degree angle, 235 mm length and a 40-mm distal locking screw. PERIOPERATIVE SITUATION: Medically cleared female with a fall, who injured her left lower extremity, sustaining a highly comminuted fractured proximal femur in the intertroch/subtroch comminuted pattern. At this point in time, we will proceed with surgical treatment. She is cleared. She had one episode of hypotension that was cleared with fluid, Narcan. Her troponin was normal. Her EKG was without any acute changes from baseline. DESCRIPTION OF PROCEDURE: The patient was appropriately identified, site verified, consent verified, and 2 grams of Ancef confirmed as being given. The left lower extremity was prepped and draped in the usual routine fashion, after which she was carefully placed on the fracture table and the fracture reduced. Once this was done, a percutaneous insertion of the guidepin was placed. This was in excellent position, cut down to the femur and then the clincher awl and then the reamer placed. Need to be adjusted once to get it down the center. Once this was done, the guidepin was exchanged for a guidewire and the ahsan placed with no difficulty. It was in excellent position and then the guidewire for the helical blade placed. It was in excellent position on AP and lateral. It was drilled to 105 mm and a 100 mm helical blade placed with excellent purchase. It was then verified in AP and lateral and it was in excellent position. The guides changed and the distal locking screw placed. It was a 40-mm screw. Once this were all verified, the helical blade was then locked into position and then the handle removed and biplane fluoro revealed anatomic reduction of the fracture and excellent position of the hardware. The wounds were then irrigated and closed with 0 Vicryl for the fascial layer proximally, 2-0 Vicryl for subcutaneous layer and stainless steel clips for skin for the 3 stab incisions. Estimated blood loss was 150 mL. Crystalloid was 1400 mL. She will need to be watched carefully for her H&H as she preoperatively was only 26. ESTIMATED BLOOD LOSS: 150 mL. CRYSTALLOID: Roughly 1400 mL. Deep venous thrombosis prophylaxis per medicine. She is at high fall risk, so likely would not place her on Coumadin. I attest to the content of the Intraoperative Record and any orders documented therein. Any exception s are noted below.
--- NOTE | 2017-11-03 12:55 | PROGRESS NOTE ---
DATE: 11/03/2017 SUBJECTIVE: The patient seen at 12:42 p.m., prior to going to the floor. She is awake and alert. She answers questions appropriately. She denies any significant pain. She denies chest pain, shortness of breath, fever, chills, nausea, vomiting or headache. OBJECTIVE: VITAL SIGNS: Stable. She is afebrile. She rides low blood pressures which is likely normal for her based on her small petite size. She has no tachycardia. ABDOMEN: Soft, nontender. NEUROVASCULAR: Neurovascular check both lower extremities normal. Wound dressing clean, dry and intact. IMAGING DATA: Postop x-rays look excellent. ASSESSMENT AND PLAN: Overall, doing well. Suggest a low narcotic small doses use switch from morphine to Dilaudid. Encourage around the clock Tylenol to minimize narcotic use, 24 hours worth of ketorolac to minimize narcotic use. Would not flood with fluids. If blood pressure is a concern, I would give her 1 or 2 units of blood, which would be more helpful than over hydrating her and at present I do not think we need to do any kind of serial hematocrits. At this point in time, her change from surgery to postop after multiple liters of fluid was only a slight decrease from 27 to 26.1. Her hemoglobin fell from 9.3 to 8.8, again, despite all the fluids. At this point in time, she looked stable, transferred back to the floor. Can be bed to chair, can be weightbearing to tolerance on the left lower extremity when she is up and about. Keep wound dressing clean, dry and intact. Again minimize narcotic use. ZHENG
[2017-11-03] MEDS ORDERED: ACETAMINOPHEN 500 MG TAB PO ONE (14:07)
--- NOTE | 2017-11-03 15:21 | PROGRESS NOTE ---
DATE: 11/03/2017 P.M. ROUNDS VISIT SUBJECTIVE: At this point in time, the patient remains to be transiently hypotensive. She denies any chest pain, shortness of breath, fever, chills, nausea, vomiting or headache. Her vital signs are - blood pressure in the 80s present, pulse is in the 60s, respiratory rates in the 18-20 range. Saturations are near 100% on 5 liters. Due to the intensive supervision that is required on the floor, at this point, she has requested to be transferred for appropriate reasons to a monitored bed. The patient is awake and alert and answers questions and denies any pain. Continue with observation. ICU stay per medical coverage. Exam does not reveal any expanding thigh hematoma. Neurovascular check both lower extremities within normal limits. Dressing clean, dry and intact. Pulses intact distally. ASSESSMENT: Overall, clinically other than her transient hypotension, which is likely based on medication, there are no major issues.
--- NOTE | 2017-11-03 15:27 | DIAGNOSTIC IMAGING REPORT ---
CHEST ONE VIEW PORTABLE CLINICAL HISTORY: hypoxia, ?CHF dysphagia COMPARISON STUDY: 11/03/2017 2:30 AM FINDINGS: Mild emphysematous change. Lungs remain clear. Diaphragms are smooth. IMPRESSION: Mild emphysematous change. Lungs remain clear. The above report was generated using voice recognition software. It may contain grammatical, syntax or spelling errors. Electronically signed by: Dayton Cha M.D. 11/03/2017 3:25 PM Dictated Date/Time: 11/03/2017 3:25 PM
[2017-11-03] MEDS: D5W AND NSS 1,000 ML IV SCH ×2 (15:58→22:24)
[2017-11-03] MEDS: CEFAZOLIN IV 1,000 MG in SYRINGE 0 ML IV SCH (15:58)
--- NOTE | 2017-11-03 16:14 | Critical Care Consultation ---
Critical Care Consultation Date of Consultation: Nov 03, 2017. Attending Physician: Hang Perry D.O. Reason for Consultation: Hypertension History of Present Illness Dear doctors Vicky Cavazos and Bettye: Thank you for your kind referral of Mrs. Brewster to critical care service. This is a 87-year-old female with a history of hypothyroidism, mild dementia, was at her assisted living when she fell and sustained a fracture to her left hip. The patient underwent pinning of her left hip which went uneventful. The patient was transferred to the regular floor after the surgery and due to the patient did receive IV narcotics. The patient was found afterward to be hypotensive with systolic blood pressure to the 60s. The patient denies any dizziness, shortness of breath, chest pain, and she was totally asymptomatic even with that blood pressure. Patient was started on IV fluids and her labs checked again which showed her hematocrit to be 27 down from 34 on admission. Repeat hematocrit was 26 which was in the same range. The patient was given a unit of blood and transferred to the ICU for further management. In the ICU, the patient denies any shortness of breath or pain except at the left hip area which is understandable. No abdominal pain, no nausea, and denies any shortness of breath. The patient review of system was limited due to the patient's overall condition and age. Social History Smoking Status: Never Smoker Alcohol Use: occasionally Drug Use: none Marital Status: Housing Status: assisted living Occupation Status: retired Allergies Coded Allergies: No Known Allergies (Unverified , 11/03/17) Current Inpatient Medications Current Inpatient Medications Medications (Trade) Dose Ordered Sig/Viky Route Start Time Stop Time Status Last Admin Dose Admin Naloxone HCl (Narcan Inj) 0.1 mg PRN PRN IV 11/03/17 05:00 12/03/17 04:59 Senna/Docusate Sodium (Senokot S Tab) 2 tab HS PO 11/03/17 21:00 12/03/17 20:59 Bisacodyl (Dulcolax Supp) 10 mg DAILY PRN HI 11/03/17 05:00 12/03/17 04:59 Sodium Biphosphate/ Sodium Phosphate (Fleet Enema) 132 ml PRN PRN HI 11/03/17 05:00 Levofloxacin 500 mg/Prmx 100 ml @ 100 mls/hr Q24H IV 11/03/17 06:30 11/13/17 06:29 11/03/17 07:02 100 MLS/HR Dextrose/Sodium Chloride 1,000 ml @ 50 mls/hr Q20H IV 11/03/17 12:00 12/03/17 11:59 11/03/17 15:58 50 MLS/HR Cefazolin Sodium 1000 mg/Syringe 7.5 ml @ 100 mls/hr Q8H IV 11/03/17 16:00 11/04/17 00:05 11/03/17 15:58 100 MLS/HR Ondansetron HCl (Zofran Inj) 4 mg Q6H PRN IV 11/03/17 11:30 12/03/17 11:29 Acetaminophen (Tylenol Tab) 650 mg Q6H PRN PO 11/03/17 11:30 12/03/17 11:29 Oxycodone HCl (Roxicodone Immediate Rel Tab) 5 mg Q6HWA PRN PO 11/03/17 11:30 11/17/17 11:29 Morphine Sulfate (MoRPHine SULFATE INJ) If PO analgesic is order... Q4HWA PRN IV 11/03/17 11:30 11/17/17 11:29 Polyethylene (Miralax Powder Packet) 17 gm Q6 PO 11/05/17 06:00 12/05/17 05:59 Magnesium Hydroxide (Milk Of Magnesia Susp) 30 ml DAILY PRN PO 11/03/17 11:30 12/03/17 11:29 Hydromorphone HCl (Dilaudid Inj) 0.5 mg Q4HWA PRN IV 11/03/17 11:45 11/17/17 11:44 Ketorolac Tromethamine (Toradol Inj) 15 mg Q6H PRN IV. 11/03/17 12:00 11/04/17 11:59 Heparin Sodium (Porcine) (Heparin Sq 5000 Unit/0.5ml) 5,000 unit Q12H SQ 11/03/17 21:00 12/03/17 20:59 Review of Systems Constitutional: No fever, No chills, No sweats, No weight loss, No weakness, No fatigue, No problem reported ENT: No hearing loss, No unusual epistaxis, No nasal symptoms, No sore throat, No tinnitus, No dental problems, No trouble swallowing, No problem reported Respiratory: No cough, No sputum, No wheezing, No shortness of breath, No dyspnea on exertion, No dyspnea at rest, No hemoptysis, No problem reported Cardiovascular: No chest pain, No orthopnea, No PND, No edema, No claudication , No palpitations, No problem reported Abdomen: No pain, No nausea, No vomiting, No diarrhea, No constipation, No GI bleeding, No problem reported Musculoskeletal: + problem reported (Left hip pain postop expected.) Genitourinary - Female: No dysuria, No urinary frequency, No urinary urgency, No urinary incontinence, No urinary retention, No hematuria, No dysmenorrhea, No menorrhagia, No metrorrhagia, No rash, No vaginal bleeding, No vaginal discharge, No vaginal itching, No vulvodynia, No , No problem reported Neurologic: No memory loss, No paralysis, No weakness, No numbness/tingling, No vertigo, No balance problems, No problem reported Integumentary: No rash, No itch, No new/changing skin lesions, No color change , No bleeding, No problem reported Allergic / Immunologic: No environmental allergies, No seasonal allergies, No pet sensitivities, No food allergies, No hives, No frequent infections, No poor healing, No prolonged convalescence, No problem reported Physical Exam Date Time Temp Pulse Resp B/P (MAP) Pulse Ox O2 Delivery O2 Flow Rate FiO2 11/03/17 14:45 36.3 71 20 84/51 100 4.0 11/03/17 14:10 36.2 68 16 79/45 93 5.0 11/03/17 13:58 90/50 (63) 100 Nasal Cannula 4.0 11/03/17 13:15 77 16 62/42 (49) 100 11/03/17 12:40 68 12 103/48 100 Nasal Cannula 2 11/03/17 12:25 74 12 103/52 100 Nasal Cannula 2 11/03/17 12:15 68 12 106/49 100 Nasal Cannula 2 11/03/17 12:07 98/52 11/03/17 12:05 36.3 80 12 82/52 100 Nasal Cannula 2 11/03/17 11:55 80 12 109/62 100 Nasal Cannula 2 11/03/17 11:45 76 14 94/50 100 Nasal Cannula 2 11/03/17 11:35 69 14 92/45 100 Oxymask 10 11/03/17 11:25 74 14 99/47 100 Oxymask 10 11/03/17 11:23 97/40 11/03/17 11:21 76/47 11/03/17 11:19 84/52 11/03/17 11:15 36.0 72 14 80/48 100 Oxymask 10 11/03/17 09:04 73 16 107/65 (79) 96 11/03/17 08:32 76 16 62/42 (49) 96 Room Air 11/03/17 07:34 Room Air 11/03/17 07:10 36.5 67 19 75/45 (55) 92 Room Air 11/03/17 05:40 36.7 79 21 100/66 Room Air 11/03/17 05:14 67 16 98/56 97 11/03/17 03:50 62 16 96/52 100 Room Air 11/03/17 03:47 78 16 84/50 95 Room Air 11/03/17 02:54 68 100 Room Air 11/03/17 02:09 36.3 84 20 150/76 92 Room Air General Appearance: no apparent distress Eyes: EOMI ENT: normal mouth exam, normal throat exam Neck: normal range of motion, no tenderness Respiratory: breath sounds normal, clear to auscultation Cardiovasular: regular rate/rhythm, normal S1S2, no M/G/R Abdomen: non tender, no masses Back: normal inspection Lower Extremities: no edema Neuro: alert, oriented x 3, normal motor exam Psychiatric: normal affect Laboratory Results Last 24 Hours Test 11/03/17 02:46 11/03/17 03:30 11/03/17 08:51 11/03/17 08:57 White Blood Count 14.06 K/uL 11.79 K/uL Red Blood Count 3.82 M/uL 3.02 M/uL Hemoglobin 11.8 g/dL 9.3 g/dL Hematocrit 34.2 % 27.0 % Mean Corpuscular Volume 89.5 fL 89.4 fL Mean Corpuscular Hemoglobin 30.9 pg 30.8 pg Mean Corpuscular Hemoglobin Concent 34.5 g/dl 34.4 g/dl Platelet Count 221 K/uL 161 K/uL Mean Platelet Volume 8.9 fL 8.7 fL Neutrophils (%) (Auto) 80.8 % Lymphocytes (%) (Auto) 10.5 % Monocytes (%) (Auto) 7.6 % Eosinophils (%) (Auto) 0.5 % Basophils (%) (Auto) 0.3 % Neutrophils # (Auto) 11.37 K/uL Lymphocytes # (Auto) 1.47 K/uL Monocytes # (Auto) 1.07 K/uL Eosinophils # (Auto) 0.07 K/uL Basophils # (Auto) 0.04 K/uL RDW Standard Deviation 45.1 fL 44.9 fL RDW Coefficient of Variation 13.7 % 13.7 % Immature Granulocyte % (Auto) 0.3 % Immature Granulocyte # (Auto) 0.04 K/uL Prothrombin Time 11.1 SECONDS Prothromb Time International Ratio 1.1 Activated Partial Thromboplast Time 23.2 SECONDS Partial Thromboplastin Ratio 0.9 Sodium Level 136 mmol/L Potassium Level 4.1 mmol/L Chloride Level 103 mmol/L Carbon Dioxide Level 27 mmol/L Anion Gap 6.0 mmol/L Blood Urea Nitrogen 15 mg/dl Creatinine 0.92 mg/dl Est Creatinine Clear Calc Drug Dose 37.2 ml/min Estimated GFR () 64.4 Estimated GFR (Non- 55.6 BUN/Creatinine Ratio 15.9 Random Glucose 139 mg/dl Calcium Level 8.5 mg/dl Total Bilirubin 0.4 mg/dl Direct Bilirubin 0.1 mg/dl Aspartate Amino Transf (AST/SGOT) 31 U/L Alanine Aminotransferase (ALT/SGPT) 30 U/L Alkaline Phosphatase 109 U/L Troponin I < 0.015 ng/ml < 0.015 ng/ml Total Protein 7.1 gm/dl Albumin 3.1 gm/dl Urine Color YELLOW Urine Appearance CLOUDY Urine pH 6.0 Urine Specific [place] 1.009 Urine Protein NEG Urine Glucose (UA) NEG Urine Ketones NEG Urine Occult Blood 1+ Urine Nitrite NEG Urine Bilirubin NEG Urine Urobilinogen NEG Urine Leukocyte Esterase LARGE Urine WBC (Auto) >30 /hpf Urine RBC (Auto) 0-4 /hpf Urine Hyaline Casts (Auto) 1-5 /lpf Urine Epithelial Cells (Auto) 5-10 /lpf Urine Bacteria (Auto) 2+ Urine Pathogenic Casts /lpf Test 11/03/17 11:40 Hemoglobin 8.8 g/dL Hematocrit 26.1 % Diagnostic Results Labs to be reviewed, chest x-ray also reviewed personally which showed hyperinflated lungs otherwise it was normal. Assessment & Plan 1. Iatrogenic hypotension most likely related to IV medications. Hematocrit is in the range of 27 in a patient who is small body weight and received IV hydration. The drop seems acceptable. The patient is totally asymptomatic. Possible mild dehydration. Doubt any other cause such as sepsis or cardiac event as the patient does not have positive troponin. No evidence of infectious process. Plan: 1. Continue with IV fluids. 2. I will hold off on any further blood transfusion unless needed. 3. Start oral intake. 4. I will start oral analgesic instead of IV. 5. DVT prophylaxis. 6. Resume her own medications. 7. Monitor in the ICU overnight. 8. Repeat labs in the morning. 9. Discussed with Dr. Wen and Dr. Cavazos, appreciate both implants. Thank you for the kind referral, case discussed with the staff and details, critical care time spent with the patient was 35 minutes.
[2017-11-03] MEDS ORDERED: NURSING VERBAL MED ORDER ONE ×2 (19:15→22:00)
[2017-11-03] MEDS: DOCUSATE SODIUM/SENNA 50/8.6MG TAB PO SCH (19:33)
[2017-11-03] MEDS: HEPARIN SOD 5000 UNIT/0.5 ML CARP SQ SCH (19:34)
[2017-11-03] MEDS: KETOROLAC TROMETHAMINE 15 MG/ML VIAL IV. PRN (19:44)
--- NOTE | 2017-11-03 21:51 | Critical Care Progress Note ---
Critical Care Progress Note Date of Service Nov 03, 2017. Critical Care Progress Note I was contacted by nursing staff as the patient had sustained blood pressures in the 80s with maps in the 50s. I did independently evaluate the patient. She offers no complaints at this time. She is awake, alert, and oriented. She is not overly tachycardic. At this point, I did elect to perform repeat H&H on the patient and treat with a 500 cc fluid bolus. After the fluid bolus, the patient's blood pressure did normalize into the 90s. H&H returned and was found to be 7.4 and 21.5. The order was given to transfuse 1 U PRBCs. Had a long discussion with the patient regarding continued management of hypotension and blood loss anemia. She is comfortable with proceeding with transfusion. After transfusion, the patient's blood pressure was sustained int he 100's w/ maps in the 60's. Her repeat H&H 1 hour after transfusion was found to be stable at 9.1/25.9. Will continue to monitor for any changes. I have personally spent 30 minutes of critical care time in the direct management of this patient. This is a life/limb threatening event. This includes time spent evaluating patient, direct bedside care, chart review, placing orders, interpretation of diagnostic studies, discussion with consultants, patient, and family members, as well as other required patient management activities. This time is exclusive of all separately billable procedures, and teaching time and separate from and in addition to any other critical care service time.
[2017-11-03] MEDS ORDERED: D5W AND NSS 500 ML IV STA (21:54)
--- NOTE | 2017-11-03 22:03 | ORTHOPEDICS PROGRESS NOTE ---
DATE: 11/03/2017 The patient is seen, doing well. She is awake. She is alert. She has much less pain. She notes that she is breathing fine. She denies chest pain, shortness of breath, fever, chills, nausea, vomiting or headache. Vital signs are stable. She is afebrile. Pulse is in the 80s. Hematocrit is stable. Last hemoglobin was 9.1. ASSESSMENT: Overall looking good status post open reduction internal fixation of left comminuted displaced inner/subtrochanteric femur fracture. At this point, continue with present medical plans, arrange for social service assessment and potential transfer to skilled level nursing at [facility].
[2017-11-03 22:27] LABS: HEMATOCRIT 21.5 % (37-47); HEMOGLOBIN 7.4 g/dL (12.0-16.0)
[2017-11-04] VITALS (17 sets, daily range): BP systolic 93–129; BP diastolic 46–68; PULSE 74–114; TEMP 36.5–37.2; O2SAT 92–99; Ht 167.6 cm; Wt 55.8 kg
[2017-11-04] MEDS: CEFAZOLIN IV 1,000 MG in SYRINGE 0 ML IV SCH (00:51)
[2017-11-04 02:11] LABS: HEMATOCRIT 25.9 % (37-47); HEMOGLOBIN 9.1 g/dL (12.0-16.0); MEAN CELL VOLUME 88.1 fL (80-100); MEAN CORPUSCULAR HGB CONC 35.1 g/dl (32-36); MEAN PLATELET VOLUME 9.3 fL (7.4-10.4); PLATELET COUNT 115 K/uL (130-400); RED CELL DISTRIBUTION WIDTH CV 14.1 % (11.5-14.5); RED CELL DISTRIBUTION WIDTH SD 45.1 fL (36.4-46.3); WHITE BLOOD COUNT 8.26 K/uL (4.8-10.8)
[2017-11-04 02:32] LABS: CALCIUM 7.4 mg/dl (8.5-10.1); CREATININE 1.02 mg/dl (0.60-1.20); POTASSIUM 4.6 mmol/L (3.5-5.1)
[2017-11-04] MEDS: LEVOFLOXACIN / D5W 500 MG in PREMIXED IN D5W 100 ML IV SCH (05:45)
[2017-11-04 06:15] LABS: HEMATOCRIT 25.1 % (37-47); HEMOGLOBIN 8.7 g/dL (12.0-16.0)
[2017-11-04] MEDS: KETOROLAC TROMETHAMINE 15 MG/ML VIAL IV. PRN (07:35)
--- NOTE | 2017-11-04 07:46 | PROGRESS NOTE ---
DATE: 11/04/2017 Postop day #1 status post ORIF of a peritrochanteric left femur fracture. The patient is awake and alert. Answers all questions appropriately. She knows that it is an end of October. She denies any chest pain, shortness of breath, fever, chills, nausea, vomiting or headache. Vital signs are stable. She is afebrile. Calves are nontender. Thigh is without any gross tenseness. There is no drainage on the dressing. Neurovascular check is normal of femoral sciatic nerve, both lower extremities. She denies any new pains anywhere. Hematology reveals H&H to be stable at 8.7 and 25.1. Chemistry looks good. BUN slightly elevated at 23. ASSESSMENT: Overall, doing well at this point in time. Transfer back to floor per medicine. Discharge plans should be initiated for transfer to custodial facility sometime early Sunday or Sunday. Leave present dressing in place until tomorrow. This will be changed by our service. Deep venous thrombosis prophylaxis per medicine. Due to high fall risk, would stay away from Coumadin. Can go with aspirin daily if they feel that that is tolerable for her GI system versus subcutaneous heparin. MTDD
[2017-11-04] MEDS: D5W AND NSS 1,000 ML IV SCH (09:00)
[2017-11-04] MEDS: HEPARIN SOD 5000 UNIT/0.5 ML CARP SQ SCH ×2 (09:19→21:54)
--- NOTE | 2017-11-04 13:30 | Critical Care Progress Note ---
Critical Care Progress Note Date of Service Nov 04, 2017. Attending Dr. De Leon Subjective The patient is poor historian, denies any pain except at the hip surgical site which is understandable. No events overnight. Her blood pressure remains stable. She did receive a second unit of blood transfusion although her hemoglobin was above then 7. Objective Physical exam on 11/04/2017 revealed vital signs are stable with blood pressure of 108/60 and a map of 78, respiratory rate of 17 and O2 saturation 99% and heart rate of 87. No JVP. S1-S2 regular rate and rhythm. Distant breath sounds bilaterally. Abdomen is benign. Mild tenderness at left hip. No edema. Assessment & Plan 1. Left hip fracture status post open reduction, appreciate orthopedic input. 2. Hypertension most likely related to dehydration and responded to IV fluid. 3. Anemia which could be dilutional, guaiac testing is pending. 4. UTI. 5. History of dementia. Plan: 1. We will check hematocrits later this evening. 2. Continue with current treatment. 3. Continue with IV fluids until the patient oral intake is adequate. 4. DVT prophylaxis. 5. GI prophylaxis. 6. Patient can be dispositioned to regular floor. Discussed with Dr. Wen. 7. Case discussed with the staff on rounds and details. Critical care time spent with the patient was 35 minutes. Data Medications: Current Inpatient Medications Medications (Trade) Dose Ordered Sig/Viky Route Start Time Stop Time Status Last Admin Dose Admin Naloxone HCl (Narcan Inj) 0.1 mg PRN PRN IV 11/03/17 05:00 12/03/17 04:59 Senna/Docusate Sodium (Senokot S Tab) 2 tab HS PO 11/03/17 21:00 12/03/17 20:59 11/03/17 19:33 2 TAB Bisacodyl (Dulcolax Supp) 10 mg DAILY PRN PA 11/03/17 05:00 12/03/17 04:59 Sodium Biphosphate/ Sodium Phosphate (Fleet Enema) 132 ml PRN PRN PA 11/03/17 05:00 Levofloxacin 500 mg/Prmx 100 ml @ 100 mls/hr Q24H IV 11/03/17 06:30 11/13/17 06:29 11/04/17 05:45 100 MLS/HR Dextrose/Sodium Chloride 1,000 ml @ 50 mls/hr Q20H IV 11/03/17 12:00 12/03/17 11:59 11/03/17 22:24 100 MLS/HR Ondansetron HCl (Zofran Inj) 4 mg Q6H PRN IV 11/03/17 11:30 12/03/17 11:29 Acetaminophen (Tylenol Tab) 650 mg Q6H PRN PO 11/03/17 11:30 12/03/17 11:29 Oxycodone HCl (Roxicodone Immediate Rel Tab) 5 mg Q6HWA PRN PO 11/03/17 11:30 11/17/17 11:29 Polyethylene (Miralax Powder Packet) 17 gm Q6 PO 11/05/17 06:00 12/05/17 05:59 Magnesium Hydroxide (Milk Of Magnesia Susp) 30 ml DAILY PRN PO 11/03/17 11:30 12/03/17 11:29 Heparin Sodium (Porcine) (Heparin Sq 5000 Unit/0.5ml) 5,000 unit Q12H SQ 11/03/17 21:00 12/03/17 20:59 11/04/17 09:19 5,000 UNIT Vital Signs: Date Time Temp Pulse Resp B/P (MAP) Pulse Ox O2 Delivery O2 Flow Rate FiO2 11/04/17 12:00 Room Air 11/04/17 12:00 36.6 85 23 107/56 (73) 99 Room Air 11/04/17 10:00 86 23 93/56 (68) 96 Room Air 11/04/17 08:00 36.7 89 23 112/65 (81) 98 Room Air 11/04/17 08:00 Room Air 11/04/17 06:01 79 17 108/56 (73) 97 Room Air 11/04/17 05:01 74 15 113/59 (77) 97 Room Air 11/04/17 04:01 36.7 82 17 94/47 (63) 97 Room Air 11/04/17 04:00 Room Air 11/04/17 03:01 80 15 110/57 (74) 97 Room Air 11/04/17 02:01 83 16 98/ (32) 97 Room Air 11/04/17 01:11 84 17 95/53 (67) 98 Room Air 11/04/17 01:01 87 14 105/58 (74) 98 Room Air 11/04/17 00:52 82 16 94/54 (67) 97 Room Air 11/04/17 00:01 36.8 80 21 94/46 (62) 92 Room Air 11/04/17 00:01 Room Air 11/04/17 00:01 80 21 94/46 92 11/03/17 23:51 81 17 100/49 (66) 96 Room Air 11/03/17 23:41 87 18 97/50 (66) 97 Room Air 11/03/17 23:31 80 17 89/46 (60) 95 Room Air 11/03/17 23:30 83 18 89/46 96 11/03/17 23:21 82 17 88/46 (60) 95 Room Air 11/03/17 23:15 81 20 88/46 94 11/03/17 23:11 88 17 93/48 (63) 97 Room Air 11/03/17 23:01 84 19 92/45 (61) 95 Room Air 11/03/17 23:00 83 18 92/45 96 11/03/17 22:51 36.8 86 18 98/44 98 11/03/17 22:50 88 17 98/44 (62) 93 Room Air 11/03/17 22:37 90 17 91/47 (62) 96 Room Air 11/03/17 22:01 85 18 89/47 (61) 94 Room Air 11/03/17 21:01 85 18 89/46 (60) 98 Room Air 11/03/17 20:01 85 15 101/45 (63) 94 Room Air 11/03/17 20:00 Room Air 11/03/17 19:30 36.7 11/03/17 19:01 81 17 91/49 (63) 97 Room Air 11/03/17 18:00 78 17 93/49 (64) 97 Room Air 11/03/17 17:00 36.7 71 17 93/47 (62) 95 Room Air 11/03/17 16:00 36.6 77 16 97/50 94 11/03/17 16:00 95 Room Air 11/03/17 16:00 96 Room Air 11/03/17 15:30 36.6 74 16 107/50 96 11/03/17 15:12 36.6 68 17 92/50 96 11/03/17 14:45 36.3 71 20 84/51 100 4.0 11/03/17 14:10 36.2 68 16 79/45 93 5.0 11/03/17 13:58 90/50 (63) 100 Nasal Cannula 4.0 Laboratory Results: Last 24 Hours Test 11/03/17 17:44 11/03/17 22:12 11/03/17 23:59 11/04/17 01:47 Hemoglobin 9.1 g/dL 7.4 g/dL 9.1 g/dL Hematocrit 21.5 % 25.9 % Bedside Glucose 165 mg/dl White Blood Count 8.26 K/uL Red Blood Count 2.94 M/uL Mean Corpuscular Volume 88.1 fL Mean Corpuscular Hemoglobin 31.0 pg Mean Corpuscular Hemoglobin Concent 35.1 g/dl RDW Standard Deviation 45.1 fL RDW Coefficient of Variation 14.1 % Platelet Count 115 K/uL Mean Platelet Volume 9.3 fL Sodium Level 137 mmol/L Potassium Level 4.6 mmol/L Chloride Level 106 mmol/L Carbon Dioxide Level 23 mmol/L Anion Gap 8.0 mmol/L Blood Urea Nitrogen 23 mg/dl Creatinine 1.02 mg/dl Est Creatinine Clear Calc Drug Dose 33.6 ml/min Estimated GFR () 56.9 Estimated GFR (Non- 49.1 BUN/Creatinine Ratio 22.5 Random Glucose 141 mg/dl Calcium Level 7.4 mg/dl Test 11/04/17 05:43 11/04/17 05:44 11/04/17 11:27 Hemoglobin 8.7 g/dL Hematocrit 25.1 % Bedside Glucose 126 mg/dl 83 mg/dl
[2017-11-04] MEDS: OXYCODONE HCL IR 5 MG TAB (IMMEDIATE RELEASE) PO PRN (14:41)
--- NOTE | 2017-11-04 16:55 | Family Medicine Progress Note ---
Progress Note Date of Service Nov 04, 2017. Subjective pt doing well this morning and afternoon, appears a little disoriented to place but is conversational and has no complaints. Denies chest pain, dyspnea, abdominal pain or diarrhea. Left hip pain is controlled ROS See HPI for pertinent positives and negatives. Medications Current Inpatient Medications Medications (Trade) Dose Ordered Sig/Viky Route Start Time Stop Time Status Last Admin Dose Admin Naloxone HCl (Narcan Inj) 0.1 mg PRN PRN IV 11/03/17 05:00 12/03/17 04:59 Senna/Docusate Sodium (Senokot S Tab) 2 tab HS PO 11/03/17 21:00 12/03/17 20:59 11/03/17 19:33 2 TAB Bisacodyl (Dulcolax Supp) 10 mg DAILY PRN [place] 11/03/17 05:00 12/03/17 04:59 Sodium Biphosphate/ Sodium Phosphate (Fleet Enema) 132 ml PRN PRN [place] 11/03/17 05:00 Levofloxacin 500 mg/Prmx 100 ml @ 100 mls/hr Q24H IV 11/03/17 06:30 11/13/17 06:29 11/04/17 05:45 100 MLS/HR Dextrose/Sodium Chloride 1,000 ml @ 50 mls/hr Q20H IV 11/03/17 12:00 12/03/17 11:59 11/03/17 22:24 100 MLS/HR Ondansetron HCl (Zofran Inj) 4 mg Q6H PRN IV 11/03/17 11:30 12/03/17 11:29 Acetaminophen (Tylenol Tab) 650 mg Q6H PRN PO 11/03/17 11:30 12/03/17 11:29 Oxycodone HCl (Roxicodone Immediate Rel Tab) 5 mg Q6HWA PRN PO 11/03/17 11:30 11/17/17 11:29 11/04/17 14:41 5 MG Polyethylene (Miralax Powder Packet) 17 gm Q6 PO 11/05/17 06:00 12/05/17 05:59 Magnesium Hydroxide (Milk Of Magnesia Susp) 30 ml DAILY PRN PO 11/03/17 11:30 12/03/17 11:29 Heparin Sodium (Porcine) (Heparin Sq 5000 Unit/0.5ml) 5,000 unit Q12H SQ 11/03/17 21:00 12/03/17 20:59 11/04/17 09:19 5,000 UNIT Enteral Nutritional Formula (Boost) 1 can DAILY PO 11/05/17 09:00 12/05/17 08:59 Objective Vital Signs Date Time Temp Pulse Resp B/P (MAP) Pulse Ox O2 Delivery O2 Flow Rate FiO2 11/04/17 16:00 Room Air 11/04/17 16:00 36.5 83 20 117/61 (79) 98 Room Air 11/04/17 14:00 88 20 124/61 (82) 98 Room Air 11/04/17 12:00 Room Air 11/04/17 12:00 36.6 85 23 107/56 (73) 99 Room Air 11/04/17 10:00 86 23 93/56 (68) 96 Room Air 11/04/17 08:00 36.7 89 23 112/65 (81) 98 Room Air 11/04/17 08:00 Room Air 11/04/17 06:01 79 17 108/56 (73) 97 Room Air 11/04/17 05:01 74 15 113/59 (77) 97 Room Air 11/04/17 04:01 36.7 82 17 94/47 (63) 97 Room Air 11/04/17 04:00 Room Air 11/04/17 03:01 80 15 110/57 (74) 97 Room Air 11/04/17 02:01 83 16 98/ (32) 97 Room Air 11/04/17 01:11 84 17 95/53 (67) 98 Room Air 11/04/17 01:01 87 14 105/58 (74) 98 Room Air 11/04/17 00:52 82 16 94/54 (67) 97 Room Air 11/04/17 00:01 36.8 80 21 94/46 (62) 92 Room Air 11/04/17 00:01 Room Air 11/04/17 00:01 80 21 94/46 92 11/03/17 23:51 81 17 100/49 (66) 96 Room Air 11/03/17 23:41 87 18 97/50 (66) 97 Room Air 11/03/17 23:31 80 17 89/46 (60) 95 Room Air 11/03/17 23:30 83 18 89/46 96 11/03/17 23:21 82 17 88/46 (60) 95 Room Air 11/03/17 23:15 81 20 88/46 94 11/03/17 23:11 88 17 93/48 (63) 97 Room Air 11/03/17 23:01 84 19 92/45 (61) 95 Room Air 11/03/17 23:00 83 18 92/45 96 11/03/17 22:51 36.8 86 18 98/44 98 11/03/17 22:50 88 17 98/44 (62) 93 Room Air 11/03/17 22:37 90 17 91/47 (62) 96 Room Air 11/03/17 22:01 85 18 89/47 (61) 94 Room Air 11/03/17 21:01 85 18 89/46 (60) 98 Room Air 11/03/17 20:01 85 15 101/45 (63) 94 Room Air 11/03/17 20:00 Room Air 11/03/17 19:30 36.7 11/03/17 19:01 81 17 91/49 (63) 97 Room Air 11/03/17 18:00 78 17 93/49 (64) 97 Room Air 11/03/17 17:00 36.7 71 17 93/47 (62) 95 Room Air Physical Exam Notes: GENERAL: Awake, alert, in no distress.Thin. Requires re-orientation to place and time. HENT: Normocephalic, atraumatic. EYES: Normal conjunctiva. Sclera non-icteric. NECK: Supple. FROM. No JVD. RESPIRATORY: Clear to auscultation. CARDIAC: Regular rate, normal rhythm. Extremities warm and well perfused. Pulses equal. ABDOMEN: soft, non distended. LOWER EXTREMITIES: Calves are equal size bilaterally and non-tender. No edema. No discoloration. Incisional site dressing in tact on left hip. NEURO: No motor deficits noted. SKIN: No rash or jaundice noted. Less pale appearing when compared to yesterday. Laboratory Results 11/04/17 01:47 11/04/17 05:43 11/04/17 01:47 Test 11/04/17 01:47 11/04/17 11:27 Red Blood Count 2.94 M/uL (4.2-5.4) Mean Corpuscular Volume 88.1 fL (80-100) Mean Corpuscular Hemoglobin 31.0 pg (25-34) Mean Corpuscular Hemoglobin Concent 35.1 g/dl (32-36) RDW Standard Deviation 45.1 fL (36.4-46.3) RDW Coefficient of Variation 14.1 % (11.5-14.5) Mean Platelet Volume 9.3 fL (7.4-10.4) Anion Gap 8.0 mmol/L (3-11) Est Creatinine Clear Calc Drug Dose 33.6 ml/min Estimated GFR () 56.9 Estimated GFR (Non- 49.1 BUN/Creatinine Ratio 22.5 (10-20) Calcium Level 7.4 mg/dl (8.5-10.1) Bedside Glucose 83 mg/dl (70-90) Assessment and Plan 87F here after mechanical fall, assessed in ED found to have left hip fracture. Admitted for orthopedic eval, underwent surgery 24Mar for intertrochanteric nail. Pre and post op has been hypotensive. Transferred to ICU 24Mar, monitored overnight and required 1 more unit of PRBC's as well as 500cc of fluids. Otherwise, pressures have improved. PMH: hypothyroidism Left hip fracture s/p open reduction Per ortho service. Left hip: Open reduction internal fixation of intertrochanter and subtrochanter with trochanteric mL blood loss, 1400cc crystalloids given. Hypotensive shock ?hemorrhagic - blood loss from fracture. Stat repeat CBC shows Hgb from 11.8 -- >9.3-->8.8, so likely contributory. pressures stable in 100-120 range after 2 units PRBC's and fluids. HR is stable in 60s-70s, pt asymptomatic otherwise. ?hypovolemia due to dehydration from UTI? Responsive to fluids. ?Iatrogenic - from the morphine 2mg and fentanyl - given .2 mg Narcan, somewhat contributory. Never any ECG changes and Trop x2 negative. Monitored in ICU overnight post op, and improved stable enough for transfer to med/surg. Anemia likely 2/2 blood loss from left hip fracture, responding to 2 units transfused Follow cbc. No s/s blood in stool, however guiac pending. UTI asymptomatic however given orthopedic situation, continue Levofloxacin 500mg. H/o dementia continue to re-orient, has been sundowning somewhat. FTT Boost DVT ppx: Lovenox Code: DNR Dispo: transfer to med/surg, then rehab on discharge. Resident Physician Supervision Note: I interviewed and examined the patient. Discussed with Dr. Wen and agree with findings and plan as documented in the note. Any exceptions or clarifications are listed here: None Documented By: Hang Perry feeling better, seems a little confused nursing notes she's pulling at lines and such - conversational though and denies complaints vitals noted nad breathing unlabored easily distractable hip fracture -now stable s/p repair -outpt osteoporosis risk stratification acute blood loss anemia with hemorrhagic shock -now improved post 2 units PRBC -bleeding seems to have been from the hip fracture - no other obvious signs for such profuse loss, and certainly hip fractures can have a significant amount of blood loss delirium/mild metabolic encephalopathy -not surprising given age, fracture, shock, ICU stay, etc --> no other acute factors identified. stable for med surg, supportive care likely to need rehab, otherwise as above Continued [facility] stay due to: multiple IV medications needed Discharge planning: rehab hospital Resident Tracking Resident Involvement: Resident Care Provided Care Provided: Adult Hospital Medicine
[2017-11-04] MEDS ORDERED: NURSING VERBAL MED ORDER ONE (19:15)
[2017-11-04] MEDS: DOCUSATE SODIUM/SENNA 50/8.6MG TAB PO SCH (21:54)
[2017-11-05] VITALS (19 sets, daily range): BP systolic 91–152; BP diastolic 57–83; PULSE 74–97; TEMP 36.3–37.1; O2SAT 93–99
[2017-11-05] MEDS: OXYCODONE HCL IR 5 MG TAB (IMMEDIATE RELEASE) PO PRN (02:44)
[2017-11-05] MEDS: LEVOFLOXACIN / D5W 500 MG in PREMIXED IN D5W 100 ML IV SCH (05:21)
[2017-11-05] MEDS: POLYETHYLENE (MIRALAX) 17 GM PACK PO SCH ×4 (05:21→18:50)
[2017-11-05 06:35] LABS: HEMATOCRIT 19.5 % (37-47); HEMOGLOBIN 6.7 g/dL (12.0-16.0); MEAN CELL VOLUME 87.8 fL (80-100); MEAN CORPUSCULAR HEMOGLOBIN 30.2 pg (25-34); MEAN CORPUSCULAR HGB CONC 34.4 g/dl (32-36); MEAN PLATELET VOLUME 8.7 fL (7.4-10.4); PLATELET COUNT 102 K/uL (130-400); RED CELL DISTRIBUTION WIDTH CV 14.2 % (11.5-14.5); RED CELL DISTRIBUTION WIDTH SD 45.9 fL (36.4-46.3); WHITE BLOOD COUNT 7.82 K/uL (4.8-10.8)
[2017-11-05 06:41] LABS: CALCIUM 7.5 mg/dl (8.5-10.1); CREATININE 0.63 mg/dl (0.60-1.20); POTASSIUM 4.2 mmol/L (3.5-5.1)
[2017-11-05 06:55] LABS: BASO % 0.1 %; BASO ABS # 0.01 K/uL (0-0.2); EOS % 1.2 %; EOS ABS # 0.09 K/uL (0-0.5); IG# 0.03 K/uL (0.00-0.02); LYMPH % 13.6 %; LYMPH ABS # 1.06 K/uL (1.2-3.4); MONO % 12.8 %; NEUT % 71.9 %; NEUT ABS # 5.63 K/uL (1.4-6.5)
--- NOTE | 2017-11-05 07:37 | PROGRESS NOTE ---
DATE: 11/05/2017 SUBJECTIVE: The patient resting comfortably in bed. She denies any chest pain, shortness of breath, fever, chills, nausea, vomiting or headache. She is tired. OBJECTIVE: Vital signs are stable. She is afebrile. She is tachycardic this morning. She does have expected swelling in the thigh based on the fracture and surgery. There is nothing that is exorbitant. Neurovascular check distally is normal. Morning laboratory work reveals hematocrit to be 19.5, hemoglobin is 6.7. White count is 7.8, platelet count is 102. Chemistry is good. ASSESSMENT: Anemia post traumatic/post surgery, left hip fracture. PLAN: At this point in time, will require 2 units of transfusion. Please discontinue IV fluid during transfusion. Premedicate with Tylenol. No Benadryl. Can be up to tolerance pending post-transfusion. Start transfusion TREVOR. Discussed with nurse on floor.
[2017-11-05] MEDS: ACETAMINOPHEN 325 MG TAB PO PRN ×2 (07:48→21:30)
[2017-11-05] MEDS ORDERED: BOOST VANILLA PO SCH ×2 (09:00)
[2017-11-05] MEDS: HEPARIN SOD 5000 UNIT/0.5 ML CARP SQ SCH ×2 (09:15→21:04)
--- NOTE | 2017-11-05 09:20 | Family Medicine Progress Note ---
Progress Note Date of Service Nov 05, 2017. Subjective Pt evaluation today including: conversation w/ patient Found patient resting comfortably, though appears tired. Answers questions easily, though, and says she feels "pretty good." Denies any focal pains, including in her left hip, or any new numbness/tingling. Denies any N/V/D or abd pain, SOB, CP, or other acute concerns. Constitutional: No fever, No chills Respiratory: No cough, No shortness of breath Cardiovascular: No chest pain, No edema Abdomen: No pain, No nausea, No vomiting, No diarrhea Medications Current Inpatient Medications Medications (Trade) Dose Ordered Sig/Viky Route Start Time Stop Time Status Last Admin Dose Admin Naloxone HCl (Narcan Inj) 0.1 mg PRN PRN IV 11/03/17 05:00 12/03/17 04:59 Senna/Docusate Sodium (Senokot S Tab) 2 tab HS PO 11/03/17 21:00 12/03/17 20:59 11/04/17 21:54 2 TAB Bisacodyl (Dulcolax Supp) 10 mg DAILY PRN [place] 11/03/17 05:00 12/03/17 04:59 Sodium Biphosphate/ Sodium Phosphate (Fleet Enema) 132 ml PRN PRN [place] 11/03/17 05:00 Levofloxacin 500 mg/Prmx 100 ml @ 100 mls/hr Q24H IV 11/03/17 06:30 11/13/17 06:29 11/05/17 05:21 100 MLS/HR Ondansetron HCl (Zofran Inj) 4 mg Q6H PRN IV 11/03/17 11:30 12/03/17 11:29 Acetaminophen (Tylenol Tab) 650 mg Q6H PRN PO 11/03/17 11:30 12/03/17 11:29 11/05/17 07:48 650 MG Oxycodone HCl (Roxicodone Immediate Rel Tab) 5 mg Q6HWA PRN PO 11/03/17 11:30 11/17/17 11:29 11/05/17 02:44 5 MG Polyethylene (Miralax Powder Packet) 17 gm Q6 PO 11/05/17 06:00 12/05/17 05:59 Magnesium Hydroxide (Milk Of Magnesia Susp) 30 ml DAILY PRN PO 11/03/17 11:30 12/03/17 11:29 Heparin Sodium (Porcine) (Heparin Sq 5000 Unit/0.5ml) 5,000 unit Q12H SQ 11/03/17 21:00 12/03/17 20:59 11/05/17 09:15 5,000 UNIT Enteral Nutritional Formula (Boost) 1 can DAILY PO 11/05/17 09:00 12/05/17 08:59 Objective Vital Signs Date Time Temp Pulse Resp B/P (MAP) Pulse Ox O2 Delivery O2 Flow Rate FiO2 11/05/17 08:45 36.7 80 20 93/57 94 11/05/17 08:30 36.7 82 20 93/57 95 11/05/17 08:18 97 Room Air 11/05/17 08:11 37.1 88 20 95/58 11/05/17 07:36 36.3 88 20 102/58 (73) 97 Room Air 11/05/17 07:35 Room Air 11/05/17 00:00 97 94/60 (71) 11/05/17 00:00 Room Air 11/04/17 22:55 37.2 114 14 97/66 (76) 97 Room Air 11/04/17 17:21 37.2 96 18 129/68 (88) 97 Room Air 11/04/17 17:15 Room Air 11/04/17 16:47 36.6 88 20 98 11/04/17 16:00 Room Air 11/04/17 16:00 36.5 83 20 117/61 (79) 98 Room Air 11/04/17 14:00 88 20 124/61 (82) 98 Room Air 11/04/17 12:00 Room Air 11/04/17 12:00 36.6 85 23 107/56 (73) 99 Room Air 11/04/17 10:00 86 23 93/56 (68) 96 Room Air Physical Exam Notes: General Appearance: Awake, alert & oriented to person (but not location or time ), appears comfortable in general, NAD. CV: +S1S2 RRR, no murmur. No peripheral edema. Pulm: Clear to auscultation throughout. Abdomen: +BS, soft, non-tender, non-distended. Extremities: Left lateral thigh two dressings c/d/i. The superior left thigh appears moderately tense and is globally ttp. The knee does not appear swollen. Can move left toes and feel light touch. SCD's present bilaterally. Skin: Left forehead contusion and abrasions. Neuro: See A&O above. No overt neuro deficits. Lines: Left forearm PIV. Laboratory Results 11/05/17 05:57 Red Blood Count 2.22, Mean Corpuscular Volume 87.8, Mean Corpuscular Hemoglobin 30.2, Mean Corpuscular Hemoglobin Concent 34.4, Mean Platelet Volume 8.7, Neutrophils (%) (Auto) 71.9, Lymphocytes (%) (Auto) 13.6, Monocytes (%) (Auto) 12.8, Eosinophils (%) (Auto) 1.2, Basophils (%) (Auto) 0.1, Neutrophils # (Auto ) 5.63, Lymphocytes # (Auto) 1.06, Monocytes # (Auto) 1.00, Eosinophils # (Auto ) 0.09, Basophils # (Auto) 0.01 11/05/17 05:57 Test 11/04/17 11:27 11/05/17 05:57 Bedside Glucose 83 mg/dl (70-90) White Blood Count 7.82 K/uL (4.8-10.8) Red Blood Count 2.22 M/uL (4.2-5.4) Hemoglobin 6.7 g/dL (12.0-16.0) Hematocrit 19.5 % (37-47) Mean Corpuscular Volume 87.8 fL (80-100) Mean Corpuscular Hemoglobin 30.2 pg (25-34) Mean Corpuscular Hemoglobin Concent 34.4 g/dl (32-36) Platelet Count 102 K/uL (130-400) Mean Platelet Volume 8.7 fL (7.4-10.4) Neutrophils (%) (Auto) 71.9 % Lymphocytes (%) (Auto) 13.6 % Monocytes (%) (Auto) 12.8 % Eosinophils (%) (Auto) 1.2 % Basophils (%) (Auto) 0.1 % Neutrophils # (Auto) 5.63 K/uL (1.4-6.5) Lymphocytes # (Auto) 1.06 K/uL (1.2-3.4) Monocytes # (Auto) 1.00 K/uL (0.11-0.59) Eosinophils # (Auto) 0.09 K/uL (0-0.5) Basophils # (Auto) 0.01 K/uL (0-0.2) RDW Standard Deviation 45.9 fL (36.4-46.3) RDW Coefficient of Variation 14.2 % (11.5-14.5) Immature Granulocyte % (Auto) 0.4 % Immature Granulocyte # (Auto) 0.03 K/uL (0.00-0.02) Hypochromasia PRESENT Anion Gap 7.0 mmol/L (3-11) Est Creatinine Clear Calc Drug Dose 54.4 ml/min Estimated GFR () 92.8 Estimated GFR (Non- 80.1 BUN/Creatinine Ratio 30.1 (10-20) Calcium Level 7.5 mg/dl (8.5-10.1) Assessment and Plan 87 yo female admitted on [id number] s/p mechanical fall. PMH: Hypothyroidism, ? dementia Left femur intertrochanteric fracture s/p fall: Now s/p ORIF with trochanteric nailing on (today POD#2). Ortho actively following, see their notes. - Tylenol prn for pain. Hypotensive shock: Suspect from blood loss due to fracture as well as some mild dehydration. Briefly in ICU for monitoring. Received two units PRBCs on 24Oct with improvement. - Monitoring BP and overall fluid status, to include IVF and UOP (including need for straight-cath). Anemia: Suspect from blood loss due to fracture. S/p two units PRBCs on 24Mar. This morning noted Hb 6.7, so ordered transfusion of additional two units PRBCs. Beyond site of fracture, no other site of suspect bleeding. - Stool guiac pending as a precaution. - If Hb continues to drop, would consider CTA of pelvis and thigh to eval for evidence of active bleeding. UTI: 24Mar UCx grew E coli. Patient presently denies any urinary symptoms. Was started on Levaquin on 24Oct. This was de-escalated to ancef on . - Will likely switch to PO option once more stable from Hb standpoint. Dementia: Reported history of same. Some mild disorientation here (mostly date and location), but carries conversation well and seems to understand what her condition is. Continuing to re-orient prn. Head contusion: S/p fall. 24Mar CT head noted no acute intracranial abnormality. Ongoing local wound care prn. Hypothyroidism: Pending info from daughter on her home dose of Synthroid. Code status: DNR. Diet: Regular diet with boost supplementation. DVT prophy: Heparin q12h, SCD's. PT/OT: PT & OT pending s/p transfusion. Disbo: Admit med/surg (medicine is primary service). Likely needs acute rehab. Case management following, notes possible transfer to [facility]. Resident Tracking Resident Involvement: Resident Care Provided Care Provided: [facility] Medicine (inpatient) Assessment/Plan Resident Physician Supervision Note: I was present with Dr. Del Rosario during the history and exam. I discussed the case with the resident and agree with the findings and plan as documented in the note. Any exceptions or clarifications are listed here. Pt somewhat confused on waking this morning, oriented to self only but appears to answer questions appropriately. Denies chest pain, SOB, lightheadedness or worsening extremity pain/paresthesias. Left thigh is swollen and mildly TTP to the knee with overlying ecchymosis. With continuing decreased Hgb, would confirm guiac negative and transfuse today , consider CT hip as noted if Hgb continues downward trend. Monitor closely. Continue abx course for UTI x 5 days.
[2017-11-05] MEDS: SODIUM CHLORIDE 0.9% 1000ML 1,000 ML IV SCH (14:32)
--- NOTE | 2017-11-05 16:19 | Progress Note ---
Progress Note Date of Service Nov 05, 2017. Progress Note Orthopedic afternoon progress note. Patient is resting comfortably in bed. Denies pain. Received both units of blood. Posttransfusion hematocrit pending. Vital signs stable afebrile. Wound dressing clean dry and intact. Neurovascular checked both lower extremities normal. Assessment overall doing well continue with post care pathway potential transfer to [facility] tomorrow.
[2017-11-05 16:37] LABS: HEMATOCRIT 25.7 % (37-47); HEMOGLOBIN 9.2 g/dL (12.0-16.0)
[2017-11-05] MEDS: DOCUSATE SODIUM/SENNA 50/8.6MG TAB PO SCH (20:58)
[2017-11-05 22:20] LABS: HEMATOCRIT 25.1 % (37-47)
[2017-11-06] MEDS: SODIUM CHLORIDE 0.9% 1000ML 1,000 ML IV SCH ×2 (00:53→13:31)
[2017-11-06] MEDS: POLYETHYLENE (MIRALAX) 17 GM PACK PO SCH ×2 (00:53→06:15)
[2017-11-06 06:07] LABS: BASO % 0.3 %; BASO ABS # 0.02 K/uL (0-0.2); EOS % 3.5 %; EOS ABS # 0.25 K/uL (0-0.5); HEMATOCRIT 21.7 % (37-47); HEMOGLOBIN 7.6 g/dL (12.0-16.0); IG# 0.03 K/uL (0.00-0.02); LYMPH % 19.9 %; LYMPH ABS # 1.44 K/uL (1.2-3.4); MEAN CELL VOLUME 87.1 fL (80-100); MEAN CORPUSCULAR HEMOGLOBIN 30.5 pg (25-34); MONO % 14.1 %; MONO ABS # 1.02 K/uL (0.11-0.59); NEUT % 61.8 %; NEUT ABS # 4.46 K/uL (1.4-6.5); PLATELET COUNT 109 K/uL (130-400); RED CELL DISTRIBUTION WIDTH CV 14.1 % (11.5-14.5); RED CELL DISTRIBUTION WIDTH SD 44.9 fL (36.4-46.3); WHITE BLOOD COUNT 7.22 K/uL (4.8-10.8)
[2017-11-06] MEDS: CEFAZOLIN IV 1,000 MG in SYRINGE 0 ML IV SCH ×3 (06:18→21:08)
[2017-11-06 06:57] LABS: CALCIUM 7.3 mg/dl (8.5-10.1); CREATININE 0.49 mg/dl (0.60-1.20); POTASSIUM 3.8 mmol/L (3.5-5.1)
[2017-11-06 07:16] VITALS: BP 114/67; PULSE 77; TEMP 36.7; O2SAT 96
--- NOTE | 2017-11-06 07:24 | PROGRESS NOTE ---
DATE: 11/06/2017 Postop day #3 status post ORIF of peritrochanteric left femur fracture. At this point in time, the patient is awake and alert. She complains of some suprapubic pressure, she has not voided, and also has a little bit of abdominal pain. She denies chest pain, shortness of breath, fever or chills. Vital signs are stable. She is afebrile. Abdomen reveals some left upper quadrant midepigastric tenderness but no rebound. Has suprapubic tenderness with pressure, feels like she has to void when I press. Distal neurovascular check is normal. Wound dressing clean, dry and intact. Thigh swelling is as expected. There is no increased drainage or swelling there. CBC reveals white count to be 7.22, hematocrit is 21.7, platelet count is 109. ASSESSMENT: Hip appearance as expected, overall doing well. Abdominal pain with slight decrease in hematocrit is concerning for gastric/duodenal ulcer in light of her mid epigastric and left upper quadrant discomfort. At this point in time, will need to have hospice evaluate for that. From a PT/OT perspective, can move to tolerance. Please get up and start moving her as long as her vitals are stable and is appropriate. She will be weightbearing to tolerance on the left leg. ZHENG
--- NOTE | 2017-11-06 08:24 | Orthopedic Progress Note ---
Orthopedic Progress Note Date of Service Nov 06, 2017. Subjective Post OP Day: 4 Reports: pain controlled w PO medications Additional Notes: complaining of abdominal pain, evaluated by Dr. Cavazos and Dr. Del Rosario this morning. CT scan pending, hemoccult stool sample obtained and sent. Otherwise resting in bed comfortably. Objective calves soft nontender, hip located, dressing C/D/I, A&O x3, toes mobile Dressing intact, some reports of scant bloody drainage proximal incision. Changed dressing, proximal incision intact, dayan retained, appears that 1 staple is not approximating incision, left alone at this time, no active bleeding, reapplied dressing. Ecchymosis around incision. Mildly tender with palpation. No serous collection of left lateral hip. Small tape blister anterolateral aspect of thigh, size of pencil eraser, superficial, dressed by nursing. Date Time Temp Pulse Resp B/P (MAP) Pulse Ox O2 Delivery O2 Flow Rate FiO2 11/06/17 07:16 36.7 77 15 114/67 (83) 96 Room Air 11/05/17 23:45 Room Air 11/05/17 23:00 36.9 86 14 128/64 (85) 96 Room Air 11/05/17 16:00 Room Air 11/05/17 15:04 36.8 79 16 119/66 (83) 99 Room Air 11/05/17 14:29 36.9 77 16 115/68 97 11/05/17 13:30 36.9 77 20 109/65 97 11/05/17 13:00 36.9 75 20 111/62 95 11/05/17 12:42 125/70 11/05/17 12:30 36.8 83 22 152/83 97 11/05/17 12:00 36.6 74 20 106/66 98 11/05/17 11:45 36.8 74 20 110/62 93 11/05/17 11:22 36.6 76 20 104/69 11/05/17 10:45 36.8 76 20 94/60 96 11/05/17 09:45 36.8 81 20 96/60 98 11/05/17 09:15 36.7 83 20 91/57 99 11/05/17 08:45 36.7 80 20 93/57 94 11/05/17 08:30 36.7 82 20 93/57 95 Laboratory Results 24 Hours: Test 11/05/17 16:17 11/05/17 22:08 11/06/17 05:22 Hematocrit 25.7 % 25.1 % 21.7 % Hemoglobin 9.2 g/dL 9.0 g/dL 7.6 g/dL White Blood Count 7.22 K/uL Red Blood Count 2.49 M/uL Mean Corpuscular Volume 87.1 fL Mean Corpuscular Hemoglobin 30.5 pg Mean Corpuscular Hemoglobin Concent 35.0 g/dl Platelet Count 109 K/uL Mean Platelet Volume 9.0 fL Neutrophils (%) (Auto) 61.8 % Lymphocytes (%) (Auto) 19.9 % Monocytes (%) (Auto) 14.1 % Eosinophils (%) (Auto) 3.5 % Basophils (%) (Auto) 0.3 % Neutrophils # (Auto) 4.46 K/uL Lymphocytes # (Auto) 1.44 K/uL Monocytes # (Auto) 1.02 K/uL Eosinophils # (Auto) 0.25 K/uL Basophils # (Auto) 0.02 K/uL Assessment & Plan Assessment: POD 3 - ORIF left intertrochanteric hip fracture Plan: She may be OOB as tolerated, WBAT LLE with assistance of a walker Ice to left hip as tolerated Change dressings daily and PRN. Allowed for range of motion left hip, knee and ankle. Workup for abdominal pain pending, seen and evaluated by Hospitalist. Acute blood loss anemia - dropped HGB - will allow medicine to manage. Will discuss findings with Dr. Cavazos. Will continue to follow during inpatient stay. Please call [phone] with any questions.
[2017-11-06] MEDS: BOOST VANILLA PO SCH ×3 (08:29→18:15)
--- NOTE | 2017-11-06 08:50 | Family Medicine Progress Note ---
Progress Note Date of Service Nov 06, 2017. Subjective Pt evaluation today including: conversation w/ patient Found patient resting comfortably this morning. She again does not volunteer any information. Says she feels about the same as yesterday, pain-free if no movement, but with left hip pain on attempted movement or ambulation. Denies any particular other pains, including in her chest or abdomen. No other acute c /o this morning. On yesterday afternoon's conversation, patient says she doesn' t have much of an appetite but denied any nausea. Constitutional: No fever, No chills Cardiovascular: No chest pain, No edema Abdomen: + constipation, No pain, No nausea, No vomiting, No diarrhea Musculoskeletal: + joint pain (left hip with movement) Female : No dysuria Medications Current Inpatient Medications Medications (Trade) Dose Ordered Sig/Viky Route Start Time Stop Time Status Last Admin Dose Admin Naloxone HCl (Narcan Inj) 0.1 mg PRN PRN IV 11/03/17 05:00 12/03/17 04:59 Senna/Docusate Sodium (Senokot S Tab) 2 tab HS PO 11/03/17 21:00 12/03/17 20:59 11/05/17 20:58 2 TAB Bisacodyl (Dulcolax Supp) 10 mg DAILY PRN AL 11/03/17 05:00 12/03/17 04:59 Sodium Biphosphate/ Sodium Phosphate (Fleet Enema) 132 ml PRN PRN AL 11/03/17 05:00 Ondansetron HCl (Zofran Inj) 4 mg Q6H PRN IV 11/03/17 11:30 12/03/17 11:29 Acetaminophen (Tylenol Tab) 650 mg Q6H PRN PO 11/03/17 11:30 12/03/17 11:29 11/05/17 21:30 650 MG Oxycodone HCl (Roxicodone Immediate Rel Tab) 5 mg Q6HWA PRN PO 11/03/17 11:30 11/17/17 11:29 11/05/17 02:44 5 MG Polyethylene (Miralax Powder Packet) 17 gm Q6 PO 11/05/17 06:00 12/05/17 05:59 11/06/17 06:15 17 GM Magnesium Hydroxide (Milk Of Magnesia Susp) 30 ml DAILY PRN PO 11/03/17 11:30 12/03/17 11:29 Heparin Sodium (Porcine) (Heparin Sq 5000 Unit/0.5ml) 5,000 unit Q12H SQ 11/03/17 21:00 12/03/17 20:59 11/05/17 21:04 5,000 UNIT Cefazolin Sodium 1000 mg/Syringe 7.5 ml @ 2.5 mls/min Q8H IV 11/06/17 06:00 11/13/17 05:59 11/06/17 06:18 2.5 MLS/MIN Sodium Chloride 1,000 ml @ 80 mls/hr [id number] IV 11/05/17 13:30 12/05/17 13:29 11/06/17 00:53 80 MLS/HR Enteral Nutritional Formula (Boost) 1 can TIDM PO 11/06/17 08:30 12/06/17 08:29 11/06/17 08:29 1 CAN Objective Vital Signs Date Time Temp Pulse Resp B/P (MAP) Pulse Ox O2 Delivery O2 Flow Rate FiO2 11/06/17 07:50 Room Air 11/06/17 07:16 36.7 77 15 114/67 (83) 96 Room Air 11/05/17 23:45 Room Air 11/05/17 23:00 36.9 86 14 128/64 (85) 96 Room Air 11/05/17 16:00 Room Air 11/05/17 15:04 36.8 79 16 119/66 (83) 99 Room Air 11/05/17 14:29 36.9 77 16 115/68 97 11/05/17 13:30 36.9 77 20 109/65 97 11/05/17 13:00 36.9 75 20 111/62 95 11/05/17 12:42 125/70 11/05/17 12:30 36.8 83 22 152/83 97 11/05/17 12:00 36.6 74 20 106/66 98 11/05/17 11:45 36.8 74 20 110/62 93 11/05/17 11:22 36.6 76 20 104/69 11/05/17 10:45 36.8 76 20 94/60 96 11/05/17 09:45 36.8 81 20 96/60 98 11/05/17 09:15 36.7 83 20 91/57 99 Physical Exam Notes: General Appearance: Awake, alert & oriented to person (but not location or time ), appears comfortable in general when at rest, NAD. CV: +S1S2 RRR, no murmur. No peripheral edema. Pulm: Clear to auscultation throughout. Abdomen: +BS, soft, mild ttp in bilateral lower quadrants, questionable in upper epigastric area, no guarding. [Patient notes suprapubic palpation causes her to feel like she needs to void.] Extremities: Left lateral thigh two dressings c/d/i. The superior left thigh appears mildly tense but is not tender (overall improved from yesterday). The knee does not appear swollen. Can move left toes and feel light touch. SCD's present bilaterally. Skin: Left forehead contusion and abrasions. Neuro: See A&O above. No overt neuro deficits. Lines: Left forearm PIV. Laboratory Results 11/06/17 05:22 Red Blood Count 2.49, Mean Corpuscular Volume 87.1, Mean Corpuscular Hemoglobin 30.5, Mean Corpuscular Hemoglobin Concent 35.0, Mean Platelet Volume 9.0, Neutrophils (%) (Auto) 61.8, Lymphocytes (%) (Auto) 19.9, Monocytes (%) (Auto) 14.1, Eosinophils (%) (Auto) 3.5, Basophils (%) (Auto) 0.3, Neutrophils # (Auto ) 4.46, Lymphocytes # (Auto) 1.44, Monocytes # (Auto) 1.02, Eosinophils # (Auto ) 0.25, Basophils # (Auto) 0.02 11/06/17 05:22 Test 11/06/17 05:22 11/06/17 07:23 White Blood Count 7.22 K/uL (4.8-10.8) Red Blood Count 2.49 M/uL (4.2-5.4) Hemoglobin 7.6 g/dL (12.0-16.0) Hematocrit 21.7 % (37-47) Mean Corpuscular Volume 87.1 fL (80-100) Mean Corpuscular Hemoglobin 30.5 pg (25-34) Mean Corpuscular Hemoglobin Concent 35.0 g/dl (32-36) Platelet Count 109 K/uL (130-400) Mean Platelet Volume 9.0 fL (7.4-10.4) Neutrophils (%) (Auto) 61.8 % Lymphocytes (%) (Auto) 19.9 % Monocytes (%) (Auto) 14.1 % Eosinophils (%) (Auto) 3.5 % Basophils (%) (Auto) 0.3 % Neutrophils # (Auto) 4.46 K/uL (1.4-6.5) Lymphocytes # (Auto) 1.44 K/uL (1.2-3.4) Monocytes # (Auto) 1.02 K/uL (0.11-0.59) Eosinophils # (Auto) 0.25 K/uL (0-0.5) Basophils # (Auto) 0.02 K/uL (0-0.2) RDW Standard Deviation 44.9 fL (36.4-46.3) RDW Coefficient of Variation 14.1 % (11.5-14.5) Immature Granulocyte % (Auto) 0.4 % Immature Granulocyte # (Auto) 0.03 K/uL (0.00-0.02) Red Blood Cell Morphology Unremarkable Anion Gap 5.0 mmol/L (3-11) Est Creatinine Clear Calc Drug Dose 69.9 ml/min Estimated GFR () 100.8 Estimated GFR (Non- 87.0 BUN/Creatinine Ratio 34.4 (10-20) Calcium Level 7.3 mg/dl (8.5-10.1) Assessment and Plan 87 yo female admitted on [id number] s/p mechanical fall. PMH: Hypothyroidism, ? dementia Left femur intertrochanteric fracture s/p fall: Now s/p ORIF with trochanteric nailing on 24Mar (today POD#3). Ortho actively following, see their notes. - Tylenol prn for pain. Hypotensive shock: Suspect from blood loss due to fracture as well as some mild dehydration. Briefly in ICU for monitoring. Received two units PRBCs on 24Mar with improvement. - Monitoring BP, with noted improvement this morning. - Monitoring UOP (0.30 ml/kg/hr over yesterday), including need for straight- cath. On NS at 80 mL/hr. Anemia: Suspect from blood loss due to fracture. S/p two units PRBCs on 24Mar, then another two units PRBCs on 26Mar. Repeat testing again noted drop to Hb 7.6. No hematemesis or melena/hematochezia. Hemoccult this am () was negative, but it was older hard stool. Does have some new abdominal discomfort on palpation. No noted hematuria. - Ordered CT a/p to include left thigh to look for areas of hematoma. - Continue to trend Hb today. - In near future will consider starting prophy PPI vs GI consult for scope if Hb continues to drop. Constipation: No noted BM since admit. Will start miralax and colace BID. UTI: UCx grew E coli. Patient presently denies any urinary symptoms. Was started on Levaquin on 24Oct. This was de-escalated to ancef on . Planned five-day course. - Will likely switch to PO option once more stable from Hb standpoint. Dementia: Reported history of same. Some mild disorientation here (mostly date and location), but carries conversation well and seems to understand what her condition is. Continuing to re-orient prn. Head contusion: S/p fall. 24Mar CT head noted no acute intracranial abnormality. Ongoing local wound care prn. Hypothyroidism: Pending info from daughter on her home dose of Synthroid. Code status: DNR. Diet: Regular diet with boost supplementation. DVT prophy: Heparin q12h, SCD's. [Held heparin on AM due to CT bleeding eval pending.] PT/OT: PT & OT pending s/p transfusion. Disbo: Admit med/surg (medicine is primary service). Likely needs acute rehab. Case management following, notes possible transfer to [facility]. Resident Tracking Resident Involvement: Resident Care Provided Care Provided: Adult Hospital Medicine (inpatient) Assessment/Plan Resident Physician Supervision Note: I was present with Dr. Del Rosario during the history and exam. I discussed the case with the resident and agree with the findings and plan as documented in the note. Any exceptions or clarifications are listed here. Pt reports persistent left hip pain with intermittently lightheadedness which is stable from yesterday. Did have bloody BM while in CT of the hip. Hip CT showed hematoma as noted. Guiac was negative during evaluation. Hemoglobin has increased on afternoon evaluation despite previous decrease, so will continue to trend through the night and monitor for further blood loss. Addition of PPI in the setting of GIB. Continue abx course for UTI, to complete tomorrow.
[2017-11-06] MEDS: HEPARIN SOD 5000 UNIT/0.5 ML CARP SQ SCH (09:00)
[2017-11-06] MEDS ORDERED: DOCUSATE SODIUM 100 MG CAP PO ONE (09:45)
--- NOTE | 2017-11-06 11:08 | DIAGNOSTIC IMAGING REPORT ---
CT SCAN OF THE ABDOMEN AND PELVIS WITHOUT IV CONTRAST CLINICAL HISTORY: Anemia status post orthopedic surgery. Decrease in hemoglobin level. COMPARISON STUDY: No priors. TECHNIQUE: CT scan of the abdomen and pelvis is performed from the lung bases to the proximal femora. Images are reviewed in the axial, sagittal, and coronal planes. IV contrast was not administered for this examination as per the referring clinician. A dose lowering technique was utilized adhering to the principles of ALARA. The Examination is degraded by motion artifact. CT DOSE: 452.50 mGycm FINDINGS: Lung bases: The heart is normal in size and without pericardial effusion. There is diminished attenuation of the cardiac blood pool as compared to the myocardium suggesting anemia. There are coronary artery calcifications. Tiny calcified granulomas are seen at the lung bases. Trace pleural effusions are identified with bibasilar atelectasis. There is a small hiatal hernia. Liver: The unenhanced liver is normal in size, contour, and attenuation. There is no intrahepatic biliary ductal dilatation. Gallbladder: Unremarkable. Spleen: Normal in size and attenuation. Pancreas: The unenhanced pancreas is atrophic and grossly unremarkable. The pancreas is not well evaluated. Adrenal glands: Unremarkable. Kidneys: The unenhanced kidneys are atrophic and without hydronephrosis. There are no renal calculi identified. There is no evidence of contour deforming renal mass lesion. Abdominal vasculature: The abdominal aorta is normal in course and caliber noting moderate to advanced atherosclerotic calcification. Bowel: There is moderate colonic diverticulosis without CT evidence of acute diverticulitis. Mild to moderate colonic fecal retention is observed. The appendix is identified and reported surgically absent. Peritoneum/retroperitoneum: There is no retroperitoneal hematoma. There is no intraperitoneal free air or abdominal ascites. Lymphadenopathy: None. Pelvic viscera: The bladder is distended and grossly unremarkable. The uterus and adnexa are normal as visualized. Skeletal structures and soft tissues: Body wall edema is identified. The skeletal structures are osteopenic. No lytic or blastic lesions are seen. Chronic posterior matter deformity is seen in the right hip. There is moderate to advanced lumbar sacral spondylosis and scoliosis. There are mild compression deformities of T11 and L1. Intertrochanteric and intramedullary nails transfix a comminuted proximal left femoral fracture. The fragments are in near anatomic alignment. Significant soft tissue edema overlies the operative site. Small foci of some details gas are likely related to recent surgery. There is a small hyperdense collection in the subcutaneous soft tissues deep to skin clips overlying the left hip seen on image #312. This measures approximately 6 x 5.5 x 4 cm and is consistent with a hematoma. A small intramuscular hematoma is identified within the left piriformis muscle on image #291. IMPRESSION: 1. Intertrochanteric and intramedullary nails transfix a comminuted fracture of the left proximal femur. The fragments are in near anatomic alignment. 2. There is significant soft tissue edema overlying the left hip, as well as foci of gas within the superficial and deep soft tissues. This is likely related to recent surgery. Clinical correlation will be required. 3. There is an approximately 6 x 5.5 x 4 cm subcutaneous soft tissue hematoma deep to skin clips overlying the left hip. 4. Intramuscular hematoma is noted in the left piriformis. 5. No retroperitoneal or intraperitoneal hemorrhage is seen. 6. Trace pleural effusions. 7. Body wall edema. 8. Moderate colonic diverticulosis without CT evidence of acute diverticulitis. 9. Additional findings as above. Electronically signed by: Charles Tabares M.D. 11/06/2017 11:07 AM Dictated Date/Time: 11/06/2017 10:55 AM
[2017-11-06] MEDS ORDERED: NURSING VERBAL MED ORDER ONE (14:00)
[2017-11-06 14:22] LABS: HEMATOCRIT 24.6 % (37-47); HEMOGLOBIN 8.4 g/dL (12.0-16.0)
[2017-11-06] MEDS ORDERED: PANTOprazole SOD 40 MG TAB PO ONE (15:53)
[2017-11-06 16:03] VITALS: BP 116/68; PULSE 81; TEMP 36.9; O2SAT 97
[2017-11-06 17:07] LABS: PTT PATIENT 28.7 SECONDS (21.0-31.0)
[2017-11-06 17:08] LABS: ALBUMIN 1.9 gm/dl (3.4-5.0); TOTAL PROTEIN 4.8 gm/dl (6.4-8.2)
--- NOTE | 2017-11-06 17:19 | GASTROINTESTINAL CONSULTATION ---
DATE OF CONSULTATION: 11/06/2017 GASTROENTEROLOGY INPATIENT CONSULTATION NOTE REQUESTING PHYSICIAN: Hang Perry DO, Orthopedics. CHIEF COMPLAINT: Anemia of unclear origin. HISTORY OF PRESENT ILLNESS: Mrs. Brewster is an 87-year-old white female who experienced a fall on Sunday and underwent an orthopedic procedure on her left hip on Sunday. During her hospital course, she presented to the Emergency Room with a hemoglobin of 11.8, several hours later it was down to 9.3 and by midday November 03, it was at 8.8 grams. The patient did receive 2 units on November 03 of packed red blood cells and then an additional 2 units of November 05 at 8:00 a.m. and noon. Following her surgery, the hemoglobin had initially responded to transfusion with a hemoglobin as high as 9.1, but then yesterday morning at 6:00 a.m., her hemoglobin was found to be 6.7. She received 2 additional units on the for a total of 4 units to date and her hemoglobin has responded to 9.0. This morning at 5:30, her hemoglobin was again down to 7.6 and at 2:00 p.m. today was 8.4. As a result, the patient underwent CT imaging which will be described below as well as a rectal exam which revealed hard stool that was initially heme negative, although there are reports that a subsequent bowel movement after the rectal exam showed blood on the coating the stool but not through and through. There is also a report from this morning that there was a subsequent blood in the stool and urine, although the quantity is unclear. From a clinical perspective, the patient denies any long history of GI disorders. There has been a pattern of weight loss, although this has occurred over many years, according to the patient's family member. She denies any history of peptic ulcer disease, chronic NSAID use, hematemesis, coffee-ground emesis, colon cancer or colon polyps and reports that her last colonoscopy was at least 20 years ago or perhaps longer. During this hospitalization, she has not had hematemesis, nausea, vomiting, coffee-ground emesis, odynophagia, dysphagia, or melena reported. PAST MEDICAL HISTORY: Only significant for hypothyroidism and the recent hip fracture. FAMILY HISTORY: Otherwise noncontributory. SOCIAL HISTORY: The patient denies tobacco or alcohol usage is , lives alone. ALLERGIES: She has no known drug allergies. HOME MEDICATIONS: Include thyroid replacement. There was a suggestion of a urinary tract infection on admission. IMAGING DATA: There was x-ray on admission also showed a left hip fracture and a CT of the cervical spine which was unrevealing. REVIEW OF SYSTEMS: Otherwise noncontributory except for mentioned above. PHYSICAL EXAMINATION: VITAL SIGNS: On admission - the patient was afebrile at 36.3, pulse 84, respirations 20, 150/76, 93% on room air. GENERAL: The patient at the present time is resting comfortably in bed, although does show some discomfort if she moves around because of her recent hip fracture. She denies any recent ambulation since her surgery. The patient is awake, alert and oriented x3, accompanied by a family member. There is a small bruise/laceration on the left forehead region. HEENT: The sclerae are anicteric, conjunctivae moist. Oral mucosa moist. NECK: There is no cervical or supraclavicular adenopathy. I do not appreciate thyromegaly. HEART: Normal S1, S2. LUNGS: Clear to auscultation without rales, rhonchi or wheezes. ABDOMEN: Soft, nontender, flat, without rebound or guarding. There are positive bowel sounds. I do not appreciate hepatosplenomegaly. There is a slight bluish discoloration around the umbilical region and a similar appearance in the left thigh region. There is no obvious flank ecchymosis noted on the exam today. EXTREMITIES: The left thigh is somewhat denser and congested than the right thigh. Show trace edema bilaterally. RECTAL: Deferred at this time. LABORATORY STUDIES: Additional blood work from admission which showed a white count of 14,000, hemoglobin 11.8, MCV of 89 and normal platelet count of 221,000. INR was 1.1, PTT 23.2, BUN and creatinine were 15 and 0.9. Total and direct 0.4 and 0.1, alkaline phosphatase 109, ALT 30. Troponins less than 0.015 on admission. Urinalysis showed 1+ ketones, occult blood and greater than 30 white blood cells, few red blood cells, urine epithelials 5-10 and there was 2+ bacteria, on admission. Nitrites was negative but leukocyte esterase was positive. IMAGING STUDY: Today showed a CAT scan revealing intertrochanteric and intramedullary nails from her recent surgery in the left proximal femur. There is significant soft tissue edema overlying the left hip as well as foci of gas within the superficial and deep soft tissues. Notably, there is a 6 x 5.5 x 4 cm subcutaneous soft tissue hematoma deep to the skin clips overlying the left hip. There is also an intramuscular hematoma noted in the left piriformis. There is body wall edema and moderate colonic diverticulosis without diverticulitis. No pleural effusions. A smaller intramuscular hematomas has also identified in the left piriformis muscle. IMPRESSION AND PLAN: The patient with a recent hip fracture due to a fall, which underwent surgery for realignment and pin placement. Prior to surgery, it appeared that her hemoglobin was drifting downward and subsequent to surgery after some correction with packed red blood cells the hemoglobin again began to fall with 2 additional units of blood given. It currently is in the mid 8 range. There were no clear source of GI bleeding that explains the patient's blood profile. There is no evidence for retroperitoneal or intraperitoneal bleeding, although there is a soft tissue compartment and subcutaneous hematomas noted in the left thigh portion of the left lower extremity. Differential for the patient's anemia includes soft tissue hematomas as described above. It is possible that hemolysis is occurring. The patient's platelet count did drop to 100,000 from a baseline of 212 and she is on subQ heparin for DVT prophylaxis and one must consider a heparin-induced thrombocytopenia. Her additional medications include MiraLax, Colace and enteral nutritional formula, Ancef 1 gram q. 8, Senokot-S, naloxone, Fleets enemas p.r.n., milk of magnesia p.r.n., oxycodone p.r.n. It appears that subQ heparin, however, for DVT prophylaxis was discontinued at 9:00 this morning. In addition to the above sources, hemolysis may be a culprit and I believe it is reasonable to assess this with serum testing for hemolytic HIT,hemolysis and DIC workup with repeat coagulation panel markers of hemolysis, haptoglobin and fibrin degradation products. At the present time, there is no convincing evidence for a brisk GI bleed or even a subclinical bleed and no obvious GI symptoms to save the weight loss which has been on for many years. The patient is not on any NSAIDs at home that would suggest an upper gastrointestinal bleeding source and BUN and creatinine are not suggesting an upper source. It is unclear what to make of the report of a small amount of blood coating the stool after rectal exam earlier today. At the present time, I do not believe upper endoscopy or colonoscopy is warranted and may be challenging with the patient's recent surgery for bowel prep. I believe it is reasonable to do the serum testing workup to exclude these as causes. Would follow hemoglobin serially, place the patient on a PPI of Protonix 40 mg twice daily orally. If it becomes more evident that a GI bleeding source is present, then will need to consider upper endoscopy and colonoscopy, if the patient and family are agreeable and if the patient is able to tolerate a bowel preparation. We will follow with you. This case was discussed with Dr. Thomas Amaral from Family Medicine. All questions answered. ZHENG
[2017-11-06] MEDS: ACETAMINOPHEN 325 MG TAB PO PRN (18:15)
[2017-11-06] MEDS: DOCUSATE SODIUM/SENNA 50/8.6MG TAB PO SCH (21:00)
[2017-11-06] MEDS: DOCUSATE SODIUM 100 MG CAP PO SCH (21:08)
[2017-11-06 23:20] VITALS: BP 126/72; PULSE 81; TEMP 36.8; O2SAT 96
[2017-11-07] MEDS: SODIUM CHLORIDE 0.9% 1000ML 1,000 ML IV SCH ×2 (00:40→14:00)
[2017-11-07] MEDS: CEFAZOLIN IV 1,000 MG in SYRINGE 0 ML IV SCH ×3 (05:26→22:00)
--- NOTE | 2017-11-07 06:12 | Family Medicine Progress Note ---
Progress Note Date of Service Nov 07, 2017. Subjective Pt evaluation today including: conversation w/ patient Found patient resting comfortably. Says, "Pleased to be here." Says her left hip and knee feel swollen to her. Can walk with maximal assistance but hurts to do so. Says her abdomen feels much improved after BM yesterday. Still minimal appetite. Denies (i.e. does not volunteer) any particular complaints overall, though. Constitutional: No fever, No chills Respiratory: No cough, No shortness of breath Cardiovascular: + edema (left leg), No chest pain Abdomen: No pain, No nausea, No vomiting Musculoskeletal: + joint pain (left hip), + swelling Medications Current Inpatient Medications Medications (Trade) Dose Ordered Sig/Viky Route Start Time Stop Time Status Last Admin Dose Admin Naloxone HCl (Narcan Inj) 0.1 mg PRN PRN IV 11/03/17 05:00 12/03/17 04:59 Senna/Docusate Sodium (Senokot S Tab) 2 tab HS PO 11/03/17 21:00 12/03/17 20:59 11/05/17 20:58 2 TAB Sodium Biphosphate/ Sodium Phosphate (Fleet Enema) 132 ml PRN PRN [place] 11/03/17 05:00 Ondansetron HCl (Zofran Inj) 4 mg Q6H PRN IV 11/03/17 11:30 12/03/17 11:29 11/06/17 21:19 4 MG Acetaminophen (Tylenol Tab) 650 mg Q6H PRN PO 11/03/17 11:30 12/03/17 11:29 11/06/17 18:15 650 MG Oxycodone HCl (Roxicodone Immediate Rel Tab) 5 mg Q6HWA PRN PO 11/03/17 11:30 11/17/17 11:29 11/05/17 02:44 5 MG Magnesium Hydroxide (Milk Of Magnesia Susp) 30 ml DAILY PRN PO 11/03/17 11:30 12/03/17 11:29 Heparin Sodium (Porcine) (Heparin Sq 5000 Unit/0.5ml) 5,000 unit Q12H SQ 11/03/17 21:00 12/03/17 20:59 Future Hold 11/05/17 21:04 5,000 UNIT Cefazolin Sodium 1000 mg/Syringe 7.5 ml @ 2.5 mls/min Q8H IV 11/06/17 06:00 11/13/17 05:59 11/07/17 05:26 2.5 MLS/MIN Sodium Chloride 1,000 ml @ 80 mls/hr [id number] IV 11/05/17 13:30 12/05/17 13:29 11/07/17 00:40 80 MLS/HR Enteral Nutritional Formula (Boost) 1 can TIDM PO 11/06/17 08:30 12/06/17 08:29 11/06/17 18:15 1 CAN Polyethylene (Miralax Powder Packet) 17 gm DAILY PO 11/07/17 09:00 12/07/17 08:59 Docusate Sodium (coLACE CAP) 100 mg BID PO 11/06/17 21:00 12/06/17 20:59 11/06/17 21:08 100 MG Pantoprazole Sodium (Protonix Tab) 40 mg BID PO 11/07/17 09:00 11/21/17 08:59 Objective Vital Signs Date Time Temp Pulse Resp B/P (MAP) Pulse Ox O2 Delivery O2 Flow Rate FiO2 11/06/17 23:20 36.8 81 18 126/72 (90) 96 Room Air 11/06/17 19:30 Room Air 11/06/17 16:03 36.9 81 15 116/68 (84) 97 Room Air 11/06/17 07:50 Room Air 11/06/17 07:16 36.7 77 15 114/67 (83) 96 Room Air Physical Exam Notes: General Appearance: Awake, alert & oriented to person (but not location or time ), appears comfortable in general when at rest, NAD. CV: +S1S2 RRR, no murmur. No peripheral edema. Pulm: Clear to auscultation throughout. Abdomen: +BS, soft, non-tender throughout, no guarding. Extremities: Left lateral thigh two dressings c/d/i. The superior left thigh does not appear very tense anymore, but still firm superiorly. There is generalized edema from the left thigh into the left knee, ending around the upper tibia. Can move left toes and feel light touch. SCD's present bilaterally. Skin: Left forehead contusion and abrasions. Neuro: See A&O above. No overt neuro deficits. Lines: Left forearm PIV. Laboratory Results 11/07/17 07:04 Red Blood Count 2.47, Mean Corpuscular Volume 88.3, Mean Corpuscular Hemoglobin 30.4, Mean Corpuscular Hemoglobin Concent 34.4, Mean Platelet Volume 8.7, Neutrophils (%) (Auto) 62.0, Lymphocytes (%) (Auto) 19.9, Monocytes (%) (Auto) 14.3, Eosinophils (%) (Auto) 3.2, Basophils (%) (Auto) 0.3, Neutrophils # (Auto ) 3.89, Lymphocytes # (Auto) 1.25, Monocytes # (Auto) 0.90, Eosinophils # (Auto ) 0.20, Basophils # (Auto) 0.02 11/07/17 07:04 Test 11/06/17 13:25 11/06/17 16:32 11/06/17 16:33 11/07/17 07:04 Urine Color DK YELLOW Urine Appearance CLEAR (CLEAR) Urine pH 5.5 (4.5-7.5) Urine Specific Husser 1.020 (1.000-1.030) Urine Protein NEG (NEG) Urine Glucose (UA) NEG (NEG) Urine Ketones NEG (NEG) Urine Occult Blood NEG (NEG) Urine Nitrite NEG (NEG) Urine Bilirubin NEG (NEG) Urine Urobilinogen NEG (NEG) Urine Leukocyte Esterase SMALL (NEG) Urine WBC (Auto) 10-30 /hpf (0-5) Urine RBC (Auto) 0-4 /hpf (0-4) Urine Hyaline Casts (Auto) 1-5 /lpf (0-5) Urine Epithelial Cells (Auto) 10-20 /lpf (0-5) Urine Bacteria (Auto) NEG (NEG) Prothrombin Time 10.6 SECONDS (9.0-12.0) Prothromb Time International Ratio 1.0 (0.9-1.1) Activated Partial Thromboplast Time 28.7 SECONDS (21.0-31.0) Partial Thromboplastin Ratio 1.1 Fibrinogen 347 mg/dl (184-400) Fibrin Degradation Products 10-40 mcg/ml (<10) D-Dimer 4030 ug/L FEU (0-500) Direct Bilirubin 0.3 mg/dl (0-0.2) Lactate Dehydrogenase 155 U/L (84-246) Heparin-PF4 Antibody Screen NEG (NEG) White Blood Count 6.28 K/uL (4.8-10.8) Red Blood Count 2.47 M/uL (4.2-5.4) Hemoglobin 7.5 g/dL (12.0-16.0) Hematocrit 21.8 % (37-47) Mean Corpuscular Volume 88.3 fL (80-100) Mean Corpuscular Hemoglobin 30.4 pg (25-34) Mean Corpuscular Hemoglobin Concent 34.4 g/dl (32-36) Platelet Count 131 K/uL (130-400) Mean Platelet Volume 8.7 fL (7.4-10.4) Neutrophils (%) (Auto) 62.0 % Lymphocytes (%) (Auto) 19.9 % Monocytes (%) (Auto) 14.3 % Eosinophils (%) (Auto) 3.2 % Basophils (%) (Auto) 0.3 % Neutrophils # (Auto) 3.89 K/uL (1.4-6.5) Lymphocytes # (Auto) 1.25 K/uL (1.2-3.4) Monocytes # (Auto) 0.90 K/uL (0.11-0.59) Eosinophils # (Auto) 0.20 K/uL (0-0.5) Basophils # (Auto) 0.02 K/uL (0-0.2) RDW Standard Deviation 44.8 fL (36.4-46.3) RDW Coefficient of Variation 14.0 % (11.5-14.5) Immature Granulocyte % (Auto) 0.3 % Immature Granulocyte # (Auto) 0.02 K/uL (0.00-0.02) Anion Gap 4.0 mmol/L (3-11) Est Creatinine Clear Calc Drug Dose 62.3 ml/min Estimated GFR () 97.1 Estimated GFR (Non- 83.7 BUN/Creatinine Ratio 24.6 (10-20) Calcium Level 7.3 mg/dl (8.5-10.1) Iron Level 41 mcg/dl (35-150) Total Iron Binding Capacity 149 mcg/dl (250-450) Transferrin 129 mg/dl (200-360) Transferrin % Saturation 23 % (15-50) Total Bilirubin 1.0 mg/dl (0.2-1) Aspartate Amino Transf (AST/SGOT) 30 U/L (15-37) Alanine Aminotransferase (ALT/SGPT) 12 U/L (12-78) Alkaline Phosphatase 49 U/L (45-117) Total Protein 4.5 gm/dl (6.4-8.2) Albumin 1.8 gm/dl (3.4-5.0) Globulin 2.7 gm/dl (2.5-4.0) Albumin/Globulin Ratio 0.7 (0.9-2) Assessment and Plan 87 yo female admitted on [id number] s/p mechanical fall. PMH: Hypothyroidism, ? dementia Left femur intertrochanteric fracture s/p fall: Now s/p ORIF with trochanteric nailing on (today POD#4). Ortho actively following, see their notes. - Tylenol prn for pain. Hypotensive shock: Suspect from blood loss due to fracture as well as some mild dehydration. Briefly in ICU for monitoring. Received two units PRBCs on with improvement. - Monitoring BP, stable over past few days. - Monitoring UOP (0.77 ml/kg/hr over yesterday), including need for straight- cath. On NS at 80 mL/hr. Anemia / Thrombocytopenia: Suspect from blood loss due to fracture. S/p two units PRBCs on , then another two units PRBCs on . Repeat testing keeps noting Hb in the 7.5 to low 8's range. On nursing reporting a single bloody stool and some blood in the urine. Rectal exam noted hard stool which was hemoccult negative. UA noted no RBCs. Consulted GI who recommended hematology workup for her drop in platelets. Started on protonix [address] a/p including thigh noted large thigh hematoma with no evidence of other blood collections. Platelets mildly improved from their prior low of 102 , is off heparin at present. - Continuing serial Hb checks for now. Constipation: No BM since admit up until , which was noted to be bloody. Monitoring. On miralax and colace BID. UTI: UCx grew E coli. Patient presently denies any urinary symptoms. Was started on Levaquin on . This was de-escalated to ancef on . Stopping antibiotics today () for five-day course. Dementia: Reported history of same. Some mild disorientation here (mostly date and location), but carries conversation well and seems to understand what her condition is. Continuing to re-orient prn. Head contusion: S/p fall. 24Mar CT head noted no acute intracranial abnormality. Ongoing local wound care prn. Hypothyroidism: Pending info from daughter on her home dose of Synthroid. Code status: DNR. Diet: Regular diet with boost supplementation. DVT prophy: SCD's. Held heparin due to ongoing bleeding concerns. PT/OT: PT & OT pending. Disbo: Admit med/surg (medicine is primary service). Likely needs acute rehab. Case management following, notes possible transfer to [facility]. Resident Tracking Resident Involvement: Resident Care Provided Care Provided: Adult Hospital Medicine (inpatient) Assessment/Plan Resident Physician Supervision Note: I was present with Dr. Del Rosario during the history and exam. I discussed the case with the resident and agree with the findings and plan as documented in the note. Any exceptions or clarifications are listed here. Pt reports gradually improving left hip pain and appears much more alert and interactive today. Complaining of mild left knee pain on movement which is new, but appears to be swelling related and mild on review with patient. Hemoglobin has remained stable at this point on PPI without further bloody BM and with negative guiac. Large hematoma of the hip present on CT. Other acute and chronic medical issues stable as noted above. PT evaluation in progress and pending dispo.
--- NOTE | 2017-11-07 06:50 | PROGRESS NOTE ---
DATE: 11/07/2017 SUBJECTIVE: Status post ORIF intertrochanteric peritrochanteric left proximal femur fracture with locked troch nail. The patient is sitting up in bed comfortable. She is awake, alert and oriented. She denies any chest pain, shortness of breath, fever, chills, nausea, vomiting or headache. OBJECTIVE: Vital signs are stable. She is afebrile. Neurovascular check femoral sciatic nerve is normal. Wound dressing clean, dry and intact. Thigh is soft, nontender. Gentle motion produces only minor discomfort. ASSESSMENT: Overall, doing well. A.m. laboratory work is pending. It appears that her hematocrit changes are likely based on the hemolysis and heparin induced type changes. Deep venous thrombosis prophylaxis per medicine. Discharge plans per medicine. From orthopedic perspective can be weightbearing to tolerance and her left lower leg needs follow up in roughly 12-14 days, but can be discharged at any point in time from our perspective.
[2017-11-07 07:25] LABS: BASO % 0.3 %; BASO ABS # 0.02 K/uL (0-0.2); EOS % 3.2 %; HEMATOCRIT 21.8 % (37-47); HEMOGLOBIN 7.5 g/dL (12.0-16.0); IG# 0.02 K/uL (0.00-0.02); LYMPH % 19.9 %; LYMPH ABS # 1.25 K/uL (1.2-3.4); MEAN CELL VOLUME 88.3 fL (80-100); MEAN CORPUSCULAR HEMOGLOBIN 30.4 pg (25-34); MEAN CORPUSCULAR HGB CONC 34.4 g/dl (32-36); MEAN PLATELET VOLUME 8.7 fL (7.4-10.4); MONO % 14.3 %; NEUT ABS # 3.89 K/uL (1.4-6.5); PLATELET COUNT 131 K/uL (130-400); RED CELL DISTRIBUTION WIDTH SD 44.8 fL (36.4-46.3); WHITE BLOOD COUNT 6.28 K/uL (4.8-10.8)
[2017-11-07 07:53] LABS: ALBUMIN 1.8 gm/dl (3.4-5.0); CALCIUM 7.3 mg/dl (8.5-10.1); CREATININE 0.55 mg/dl (0.60-1.20); POTASSIUM 3.5 mmol/L (3.5-5.1)
[2017-11-07 07:56] LABS: TOTAL PROTEIN 4.5 gm/dl (6.4-8.2)
[2017-11-07 08:00] VITALS: BP 122/82; PULSE 80; TEMP 36.9; O2SAT 96
[2017-11-07] MEDS: BOOST VANILLA PO SCH ×3 (08:24→17:29)
[2017-11-07] MEDS: PANTOprazole SOD 40 MG TAB PO SCH ×2 (08:24→21:00)
[2017-11-07] MEDS: DOCUSATE SODIUM 100 MG CAP PO SCH ×2 (08:25→21:00)
[2017-11-07] MEDS: POLYETHYLENE (MIRALAX) 17 GM PACK PO SCH (08:25)
--- NOTE | 2017-11-07 08:29 | Progress Note ---
Progress Note Date of Service Nov 07, 2017. Progress Note Patient doing well. Seen and evaluated by Dr. Cavazos this morning. Dressings changed by nursing, currently clean, dry, intact.
--- NOTE | 2017-11-07 08:32 | Consultant Recommendations ---
Seismograph Supervisor Recommendations Date of Service Nov 07, 2017. Seismograph Supervisor Recommendations WBAT LLE Use walker to assist with ambulation Ice to left hip and knee as needed for pain/swelling. Allowed for full ROM left hip and knee as tolerated. Advance activities as tolerated. Follow up with [facility] on 11/19/17 at 10:15 a.m. Please call [phone] with any questions or concerns.
[2017-11-07 08:41] VITALS: O2SAT 96
[2017-11-07] MEDS ORDERED: PANTOprazole SOD 40 MG TAB PO SCH (09:00)
[2017-11-07 11:55] VITALS: BP 114/62; PULSE 85; TEMP 36.9; O2SAT 96
[2017-11-07 14:01] LABS: HEMOGLOBIN 7.3 g/dL (12.0-16.0)
[2017-11-07 15:25] VITALS: BP 127/65; PULSE 80; TEMP 37.1; O2SAT 95
[2017-11-07] MEDS: DOCUSATE SODIUM/SENNA 50/8.6MG TAB PO SCH (21:00)
[2017-11-07 21:25] LABS: HEMATOCRIT 23.3 % (37-47); HEMOGLOBIN 8.1 g/dL (12.0-16.0)
[2017-11-07 23:04] VITALS: BP 137/74; PULSE 87; TEMP 37.3; O2SAT 96
[2017-11-08] MEDS: SODIUM CHLORIDE 0.9% 1000ML 1,000 ML IV SCH (04:00)
--- NOTE | 2017-11-08 06:57 | ORTHOPEDICS PROGRESS NOTE ---
DATE: 11/08/2017 At this point in time, the patient is resting comfortably, has no major issues by reports. Vital signs are stable, T-max is 37.3. Wound and leg are without any gross change. Hematocrit has been stable in the low 20s. A.m. labs are pending. ASSESSMENT: At this point in time, the patient needs to be mobilized more. Low-grade temperature, likely based on pulmonary or absorption of thigh blood from her femur fracture. PT/OT needs to be more insistent on getting her up and moving. Transfer per medicine when she is stable.
[2017-11-08 07:02] VITALS: BP 157/77; PULSE 83; TEMP 37; O2SAT 94
[2017-11-08 07:49] LABS: BASO % 0.4 %; BASO ABS # 0.03 K/uL (0-0.2); EOS % 3.2 %; EOS ABS # 0.22 K/uL (0-0.5); HEMATOCRIT 22.1 % (37-47); HEMOGLOBIN 7.8 g/dL (12.0-16.0); IG# 0.03 K/uL (0.00-0.02); LYMPH % 17.4 %; LYMPH ABS # 1.19 K/uL (1.2-3.4); MEAN CELL VOLUME 89.1 fL (80-100); MEAN CORPUSCULAR HEMOGLOBIN 31.5 pg (25-34); MEAN CORPUSCULAR HGB CONC 35.3 g/dl (32-36); MEAN PLATELET VOLUME 8.6 fL (7.4-10.4); MONO % 16.6 %; MONO ABS # 1.14 K/uL (0.11-0.59); NEUT ABS # 4.24 K/uL (1.4-6.5); PLATELET COUNT 170 K/uL (130-400); RED CELL DISTRIBUTION WIDTH CV 14.1 % (11.5-14.5); RED CELL DISTRIBUTION WIDTH SD 44.8 fL (36.4-46.3); WHITE BLOOD COUNT 6.85 K/uL (4.8-10.8)
--- NOTE | 2017-11-08 08:07 | GASTROENTEROLOGY PROGRESS NOTE ---
DATE: 11/07/2017 SUBJECTIVE: Chart reviewed, patient examined, results of Last 24 hours events noted. The patient is doing better today. Still not had a meaningful bowel movement and there are no reports of blood in the stool except for the single event that occurred following a rectal examination yesterday morning. Her hemoglobin did drift down to 7.2, but there are no reports of overt gastrointestinal hemorrhage or obvious increase in ecchymosis or other sources of bleeding. The patient actually is doing well following her orthopedic procedure on the left femur fracture. The available hemolysis workup has been unrevealing to date. Bilirubin was 0.9, direct is 0.3, AST 27, ALT 15, alkaline phosphatase 49. Repeat earlier today, bilirubin is 1.0 with normal transaminases and alkaline phosphatase. LDH was normal at 155. There was no evidence for heparin-induced antibodies and other markers are pending at this time. There was an elevated D-dimer. Haptoglobin is pending. Results of the peripheral blood smear also pending. REVIEW OF SYSTEMS: Otherwise noncontributory. CURRENT MEDICATIONS: Include pantoprazole, Colace, Boost. ALLERGIES: The patient has no known allergies. PHYSICAL EXAMINATION: VITAL SIGNS: Today, the patient is afebrile at 37.1, blood pressure 127/65, 95% on room air, respirations 16, heart rate 80. GENERAL: The patient is awake, alert and oriented, resting in bed, although just transferred from the bedside commode. LUNGS: Clear to auscultation. HEART: Normal S1, S2. ABDOMEN: Soft, flat, nontender, nondistended. Good bowel sounds. EXTREMITIES: Show bilateral trace to +1 edema. RECTAL: Deferred. IMPRESSION AND PLAN: No signs of overt gastrointestinal bleeding. Hemoglobin although slightly drifted down, does not suggest a brisk bleed or brisk blood loss. Current workup to date without evidence of hemolysis or apparent heparin-induced thrombocytopenia and her platelet count is actually starting to rebound, it is up to 132. Her baseline was 214. Would await the results of the final workup of peripheral blood smear. Given the patient's advanced age and need for increasing mobility, it may be reasonable to consider a transfusion of 1 or 2 units of packed red blood cells to minimize any orthostatic events from hypovolemia particular she works to her rehabilitation exercises. If the patient is discharged by tomorrow, I will be happy to see the patient in the office over the next 3-4 weeks to reassess any need upper and/or lower endoscopy. She has been 20-30 years by her recollection since her last colonoscopy and she does not recall ever having had an upper endoscopy, although I suspect that the bleeding may have been in the perioperative timeframe and site given the absence of obvious GI sources. We will follow with you. If you have any questions, please contact me. Case was discussed with the house staff. ZHENG
--- NOTE | 2017-11-08 08:09 | Family Medicine Progress Note ---
Progress Note Date of Service Nov 08, 2017. Subjective Pt evaluation today including: conversation w/ patient Found patient resting comfortably. Says her left hip pain continues to improve. She has no particular acute concerns this morning. Constitutional: No fever, No chills Respiratory: No cough, No shortness of breath Cardiovascular: No chest pain, No edema Abdomen: + constipation, No pain, No nausea, No vomiting, No diarrhea Musculoskeletal: + joint pain, + swelling Medications Current Inpatient Medications Medications (Trade) Dose Ordered Sig/Viky Route Start Time Stop Time Status Last Admin Dose Admin Naloxone HCl (Narcan Inj) 0.1 mg PRN PRN IV 11/03/17 05:00 12/03/17 04:59 Senna/Docusate Sodium (Senokot S Tab) 2 tab HS PO 11/03/17 21:00 12/03/17 20:59 11/07/17 21:00 2 TAB Sodium Biphosphate/ Sodium Phosphate (Fleet Enema) 132 ml PRN PRN [place] 11/03/17 05:00 Ondansetron HCl (Zofran Inj) 4 mg Q6H PRN IV 11/03/17 11:30 12/03/17 11:29 11/06/17 21:19 4 MG Acetaminophen (Tylenol Tab) 650 mg Q6H PRN PO 11/03/17 11:30 12/03/17 11:29 11/06/17 18:15 650 MG Oxycodone HCl (Roxicodone Immediate Rel Tab) 5 mg Q6HWA PRN PO 11/03/17 11:30 11/17/17 11:29 11/05/17 02:44 5 MG Magnesium Hydroxide (Milk Of Magnesia Susp) 30 ml DAILY PRN PO 11/03/17 11:30 12/03/17 11:29 Heparin Sodium (Porcine) (Heparin Sq 5000 Unit/0.5ml) 5,000 unit Q12H SQ 11/03/17 21:00 12/03/17 20:59 Future Hold 11/05/17 21:04 5,000 UNIT Sodium Chloride 1,000 ml @ 80 mls/hr [id number] IV 11/05/17 13:30 12/05/17 13:29 11/07/17 14:00 80 MLS/HR Enteral Nutritional Formula (Boost) 1 can TIDM PO 11/06/17 08:30 12/06/17 08:29 11/07/17 17:29 1 CAN Polyethylene (Miralax Powder Packet) 17 gm DAILY PO 11/07/17 09:00 12/07/17 08:59 11/07/17 08:25 17 GM Docusate Sodium (coLACE CAP) 100 mg BID PO 11/06/17 21:00 12/06/17 20:59 11/07/17 21:00 100 MG Pantoprazole Sodium (Protonix Tab) 40 mg BID PO 11/07/17 09:00 11/21/17 08:59 11/07/17 21:00 40 MG Objective Vital Signs Date Time Temp Pulse Resp B/P (MAP) Pulse Ox O2 Delivery O2 Flow Rate FiO2 11/08/17 07:02 37.0 83 15 157/77 (103) 94 Room Air 11/07/17 23:04 37.3 87 15 137/74 (95) 96 Room Air 11/07/17 19:15 Room Air 11/07/17 15:25 37.1 80 16 127/65 (85) 95 Room Air 11/07/17 11:55 36.9 85 20 114/62 (79) 96 Room Air 11/07/17 08:41 96 Room Air Physical Exam Notes: General Appearance: Awake, alert & oriented to person, place, roughly time, appears comfortable in general, NAD. CV: +S1S2 RRR, no murmur. No peripheral edema. Pulm: Clear to auscultation throughout. Abdomen: +BS, soft, non-tender throughout, no guarding. Extremities: Left lateral thigh two dressings c/d/i. The superior left thigh does not appear very tense anymore. There is generalized edema from the left thigh into the left knee, ending around the upper tibia. Can move left toes and feel light touch. SCD's present bilaterally. Skin: Left forehead contusion and abrasions, slowly healing. Neuro: See A&O above. No overt neuro deficits. Laboratory Results 11/08/17 06:56 Red Blood Count 2.48, Mean Corpuscular Volume 89.1, Mean Corpuscular Hemoglobin 31.5, Mean Corpuscular Hemoglobin Concent 35.3, Mean Platelet Volume 8.6, Neutrophils (%) (Auto) 62.0, Lymphocytes (%) (Auto) 17.4, Monocytes (%) (Auto) 16.6, Eosinophils (%) (Auto) 3.2, Basophils (%) (Auto) 0.4, Neutrophils # (Auto ) 4.24, Lymphocytes # (Auto) 1.19, Monocytes # (Auto) 1.14, Eosinophils # (Auto ) 0.22, Basophils # (Auto) 0.03 11/08/17 06:56 Test 11/08/17 06:56 White Blood Count 6.85 K/uL (4.8-10.8) Red Blood Count 2.48 M/uL (4.2-5.4) Hemoglobin 7.8 g/dL (12.0-16.0) Hematocrit 22.1 % (37-47) Mean Corpuscular Volume 89.1 fL (80-100) Mean Corpuscular Hemoglobin 31.5 pg (25-34) Mean Corpuscular Hemoglobin Concent 35.3 g/dl (32-36) Platelet Count 170 K/uL (130-400) Mean Platelet Volume 8.6 fL (7.4-10.4) Neutrophils (%) (Auto) 62.0 % Lymphocytes (%) (Auto) 17.4 % Monocytes (%) (Auto) 16.6 % Eosinophils (%) (Auto) 3.2 % Basophils (%) (Auto) 0.4 % Neutrophils # (Auto) 4.24 K/uL (1.4-6.5) Lymphocytes # (Auto) 1.19 K/uL (1.2-3.4) Monocytes # (Auto) 1.14 K/uL (0.11-0.59) Eosinophils # (Auto) 0.22 K/uL (0-0.5) Basophils # (Auto) 0.03 K/uL (0-0.2) RDW Standard Deviation 44.8 fL (36.4-46.3) RDW Coefficient of Variation 14.1 % (11.5-14.5) Immature Granulocyte % (Auto) 0.4 % Immature Granulocyte # (Auto) 0.03 K/uL (0.00-0.02) Basophilic Stippling 1+ Anion Gap 5.0 mmol/L (3-11) Est Creatinine Clear Calc Drug Dose 72.9 ml/min Estimated GFR () 102.2 Estimated GFR (Non- 88.2 BUN/Creatinine Ratio 21.2 (10-20) Calcium Level 7.5 mg/dl (8.5-10.1) Assessment and Plan IN PROGRESS 87 yo female admitted on [id number] s/p mechanical fall. PMH: Hypothyroidism, ? dementia Left femur intertrochanteric fracture s/p fall: Now s/p ORIF with trochanteric nailing on (today POD#5). Ortho actively following, see their notes. - Tylenol prn for pain. Hypotensive shock: Suspect from blood loss due to fracture as well as some mild dehydration. Briefly in ICU for monitoring. Received two units PRBCs on with improvement. - Monitoring BP, stable over past few days. - Monitoring UOP (0.90 ml/kg/hr over yesterday), including need for straight- cath. On NS at 80 mL/hr. Anemia / Thrombocytopenia: Suspect from blood loss due to fracture. S/p two units PRBCs on , then another two units PRBCs on . Repeat testing keeps noting Hb in the high 7's to low 8's range. On nursing reporting a single bloody stool and some blood in the urine. Rectal exam noted hard stool which was hemoccult negative. UA noted no RBCs. Consulted GI who recommended hematology workup for her drop in platelets. Started on protonix [address] a/p including thigh noted large thigh hematoma with no evidence of other blood collections. Platelets continue to improve from their prior low of 102 (now 170) is off heparin at present. - Awaiting hematology results. Constipation: Has had only a single BM since admit (which was noted to be bloody ). Not much solid PO intake, though. Monitoring. On miralax and colace BID. UTI: UCx grew E coli. Patient presently denies any urinary symptoms. Completed five day course of levaquin, then ancef on . Dementia: Reported history of same. Some mild disorientation here at times, but carries conversation well and seems to understand what her condition is. Continuing to re-orient prn. Head contusion: S/p fall. CT head noted no acute intracranial abnormality. Ongoing local wound care prn. Hypothyroidism: Pending info from daughter on her home dose of Synthroid. Code status: DNR. Diet: Regular diet with boost supplementation. DVT prophy: SCD's. Held heparin due to ongoing bleeding concerns. PT/OT: PT & OT pending. Disbo: Admit med/surg (medicine is primary service). Likely needs acute rehab. Case management following, notes possible transfer to [facility]. Resident Tracking Resident Involvement: Resident Care Provided Care Provided: Adult Hospital Medicine (inpatient)
[2017-11-08 08:17] LABS: CALCIUM 7.5 mg/dl (8.5-10.1); CREATININE 0.47 mg/dl (0.60-1.20); POTASSIUM 3.5 mmol/L (3.5-5.1)
[2017-11-08] MEDS: PANTOprazole SOD 40 MG TAB PO SCH (08:26)
[2017-11-08] MEDS: BOOST VANILLA PO SCH ×2 (08:26→13:20)
[2017-11-08] MEDS: POLYETHYLENE (MIRALAX) 17 GM PACK PO SCH (08:26)
[2017-11-08] MEDS: DOCUSATE SODIUM 100 MG CAP PO SCH (08:26)
[2017-11-08] MEDS ORDERED: CLC100 PO (10:38)
[2017-11-08] MEDS ORDERED: MRLP17 PO (10:38)
[2017-11-08] MEDS ORDERED: SENN8.6T7 PO (10:38)
[2017-11-08] MEDS ORDERED: ACET-1047 PO (10:38)
[2017-11-08] MEDS ORDERED: MOMLX PO (10:38)
[2017-11-08] MEDS ORDERED: PRT40 PO (10:38)
--- NOTE | 2017-11-08 10:41 | Discharge Instructions ---
Discharge Instructions Date of Service Nov 08, 2017. Admission Reason for Admission: Hip Fracture Discharge Discharge Diagnosis / Problem: Left hip fracture, Low hemoglobin requiring transfusion Discharge Goals Goal(s): Increase independence, Improve nutritional status, Learn about illness Activity Recommendations Activity Limitations: per Instructions/Follow-up section . Current Hospital Diet Patient's current hospital diet: Regular Diet Procedures Procedures Performed: Left hip: Open reduction internal fixation of intertrochanter and subtrochanter with trochanteric nailing Medical Emergencies . Who to Call and When: Medical Emergencies: If at any time you feel your situation is an emergency, please call 911 immediately. . Non-Emergent Contact . . "Provider Documentation" section prepared by Thomas Del Rosario. . Metal Cut Off Saw Tender Recommendations Metal Cut Off Saw Tender Recommendations: WBAT LLE Use walker to assist with ambulation Ice to left hip and knee as needed for pain/swelling. Allowed for full ROM left hip and knee as tolerated. Advance activities as tolerated. Follow up with [facility] on 11/19/17 at 10:15 a.m. Please call [phone] with any questions or concerns.
--- NOTE | 2017-11-08 10:49 | Discharge Instructions ---
Discharge Instructions Date of Service Nov 08, 2017. Admission Reason for Admission: Hip Fracture Discharge Discharge Diagnosis / Problem: Left femur fracture, low blood counts requiring transfusion Discharge Goals Goal(s): Improve function, Increase independence, Improve nutritional status, Learn about illness Activity Recommendations Activity Limitations: per Instructions/Follow-up section .She may be OOB as tolerated, WBAT LLE with assistance of a walker Instructions / Follow-Up Instructions / Follow-Up You were admitted to the hospital for a fracture of your left femur, for which you underwent surgery on November 03. During your hospital stay you had some associated bleeding that required transfusion of blood. On multiple repeat checks of your blood counts, the levels are still low but appear stable, and it does not appear that you have any active bleeding going on. You are being discharged to a rehabilitation facility that can help with ongoing care of your femur fracture. - Please follow up with the orthopedic surgery service per their instructions. - You were also evaluated by the gastroenterology (GI, i.e. intestine doctors) service due to your bleeding and concern for a single bloody bowel movement. They would like to re-evaluate you in 3-4 weeks for further evaluation. - Please go to the nearest emergency department for any uncontrolled pain, any concerns about bleeding or drops in your blood counts, or with any other emergent concerns. Current Hospital Diet Patient's current hospital diet: Regular Diet Discharge Diet Recommended Diet: Regular Diet Procedures Procedures Performed: Left hip: Open reduction internal fixation of intertrochanter and subtrochanter with trochanteric nailing Pending Studies Studies pending at discharge: no Medical Emergencies . Who to Call and When: Medical Emergencies: If at any time you feel your situation is an emergency, please call 911 immediately. . Non-Emergent Contact Non-Emergency issues call your: Primary Care Provider . Electron Gun Assembler Recommendations Electron Gun Assembler Recommendations: WBAT LLE Use walker to assist with ambulation Ice to left hip and knee as needed for pain/swelling. Allowed for full ROM left hip and knee as tolerated. Advance activities as tolerated. Follow up with [facility] on 11/19/17 at 10:15 a.m. Please call [phone] with any questions or concerns.
--- NOTE | 2017-11-08 11:07 | Discharge Summary ---
Discharge Summary Date of Service Nov 06, 2017. Discharge Summary Admission Date: Nov 03, 2017 at 04:55 Discharge Date: Nov 08, 2017 Discharge Disposition: Rehab Principal Diagnosis: Left femur intertrochanteric fracture Problems/Secondary Diagnoses: - Anemia - Thrombocytopenia - Constipation - UTI - Head contusion Immunizations: Have You Had Influenza Vaccine: Unknown History of Tetanus Vaccine?: Unknown History of Pneumococcal: Unknown History of Hepatitis B Vaccine: Unknown Procedures: 03Nov2017 - L PELVIS/UNILATERAL HIP 2-3VIEWS IMPRESSION: Oblique reaction or proximal femoral shaft with intertrochanteric extension. Superior migration femoral shaft. No evidence of dislocation. 03Nov2017 - CHEST ONE VIEW PORTABLE IMPRESSION: Negative chest. 03Nov2017 - HEAD WITHOUT CONTRAST (CT) Impression: No acute intracranial abnormality. Chronic small vessel and atrophic change. 03Nov2017 - CT CERVICAL SPINE W/O FINDINGS: No fractures. No subluxation. Prevertebral soft tissues and the C1-C2 interval are intact. No pneumothorax. Degenerative disc change throughout. This is most prominent from C5 through C7. IMPRESSION: Degenerative change. No acute bony abnormality. 03Nov2017 - L HIP OR FILMS FINDINGS: Left hip nailing procedure. Hip is aligned anatomically. No evidence of dislocation. IMPRESSION: Anatomic alignment post left hip nailing 03Nov2017 - CHEST ONE VIEW PORTABLE IMPRESSION: Mild emphysematous change. Lungs remain clear. 06Nov2017 - CT SCAN OF THE ABDOMEN AND PELVIS WITHOUT IV CONTRAST CLINICAL HISTORY: Anemia status post orthopedic surgery. Decrease in hemoglobin level. IMPRESSION: 1. Intertrochanteric and intramedullary nails transfix a comminuted fracture of the left proximal femur. The fragments are in near anatomic alignment. 2. There is significant soft tissue edema overlying the left hip, as well as foci of gas within the superficial and deep soft tissues. This is likely related to recent surgery. Clinical correlation will be required. 3. There is an approximately 6 x 5.5 x 4 cm subcutaneous soft tissue hematoma deep to skin clips overlying the left hip. 4. Intramuscular hematoma is noted in the left piriformis. 5. No retroperitoneal or intraperitoneal hemorrhage is seen. 6. Trace pleural effusions. 7. Body wall edema. 8. Moderate colonic diverticulosis without CT evidence of acute diverticulitis. 9. Additional findings as above. Consultations: 07Nov2017 - Gastroenterology note IMPRESSION AND PLAN: No signs of overt gastrointestinal bleeding. Hemoglobin although slightly drifted down, does not suggest a brisk bleed or brisk blood loss. Current workup to date without evidence of hemolysis or apparent heparin-induced thrombocytopenia and her platelet count is actually starting to rebound, it is up to 132. Her baseline was 214. Would await the results of the final workup of peripheral blood smear. Given the patient's advanced age and need for increasing mobility, it may be reasonable to consider a transfusion of 1 or 2 units of packed red blood cells to minimize any orthostatic events from hypovolemia particular she works to her rehabilitation exercises. If the patient is discharged by tomorrow, I will be happy to see the patient in the office over the next 3-4 weeks to reassess any need upper and/or lower endoscopy. She has been 20-30 years by her recollection since her last colonoscopy and she does not recall ever having had an upper endoscopy, although I suspect that the bleeding may have been in the perioperative timeframe and site given the absence of obvious GI sources. We will follow with you. If you have any questions, please contact me. Case was discussed with the house staff. 06Nov2017 - Orthopedics note ASSESSMENT: Hip appearance as expected, overall doing well. Abdominal pain with slight decrease in hematocrit is concerning for gastric/duodenal ulcer in light of her mid epigastric and left upper quadrant discomfort. At this point in time, will need to have hospice evaluate for that. From a PT/OT perspective, can move to tolerance. Please get up and start moving her as long as her vitals are stable and is appropriate. She will be weightbearing to tolerance on the left leg. Medication Reconciliation New Medications: Acetaminophen (Mapap) 325 Mg Tab 650 MG PO Q6H PRN for For mild pain (pain scale 1-3) for 30 Days, #30 TAB 0 Refills Docusate Sodium (Docusate Sodium) 100 Mg Cap 100 MG PO BID for 30 Days, #60 CAP 0 Refills Magnesium Hydroxide (Milk of Magnesia) 30 Ml Susp 30 ML PO DAILY PRN for Constipation for 30 Days, #900 ML 0 Refills Pantoprazole (Pantoprazole Sodium) 40 Mg Tab 40 MG PO BID for 30 Days, #60 TAB 0 Refills Polyethylene (Miralax) 17 Gm Pow 17 GM PO DAILY for 7 Days, #1 BOX 0 Refills Sennosides-Docusate Sodium (Senokot S) 1 Tab Tab 2 TAB PO HS for 7 Days, #14 TAB 0 Refills Discharge Exam General Appearance: Awake, alert & oriented to person, place, roughly time, appears comfortable in general, NAD. CV: +S1S2 RRR, no murmur. No peripheral edema. Pulm: Clear to auscultation throughout. Abdomen: +BS, soft, non-tender throughout, no guarding. Extremities: Left lateral thigh two dressings c/d/i. The superior left thigh does not appear very tense anymore. There is generalized edema from the left thigh into the left knee, ending around the upper tibia. Can move left toes and feel light touch. SCD's present bilaterally. Skin: Left forehead contusion and abrasions, slowly healing. Neuro: See A&O above. No overt neuro deficits. Review of Systems: Constitutional: No fever Respiratory: No cough, No shortness of breath Cardiovascular: + edema, No chest pain Abdomen: + constipation, No pain, No nausea, No vomiting, No diarrhea Musculoskeletal: + joint pain, + swelling Hospital Course HPI at time of admission on Nov 03, 2017 at 05:03 Patient is an 87 year old female who lives at [facility] that was cooking dinner earlier this evening and had a fall to the ground as she lost her footing and slipped. She did hit her head and she also fell onto her left side. She denies any pre-syncope, loss of consciousness, urinary/bowel incontinence, tongue biting or seizure like activity. Patient does not that she has been more confused over the past few days. She denies any dysuria, hematuria, ab pain, back pain, fevers or chills. She says that her pain is over her left hip. It is sharp in nature and worse with movement. She rates the pain as a 7/10. She denies any numbness or tingling down the leg. Discharge summary on 08Nov2017 87 yo female admitted on 03Nov2017 s/p mechanical fall. PMH: Hypothyroidism, ? dementia Left femur intertrochanteric fracture s/p fall: Now s/p ORIF with trochanteric nailing on (today POD#5). Ortho actively following, see their notes. - Tylenol prn for pain. Hypotensive shock: Suspect from blood loss due to fracture as well as some mild dehydration. Briefly in ICU for monitoring. Received two units PRBCs on 24Mar with improvement. - Monitoring BP, stable over past few days. - Monitoring UOP (0.90 ml/kg/hr over yesterday), though PO intake has mildly improved in past couple days. Anemia / Thrombocytopenia: Suspect from blood loss due to fracture. S/p two units PRBCs on 24Mar, then another two units PRBCs on 26Mar. Repeat testing keeps noting Hb in the high 7's to low 8's range. On 27Mar nursing reporting a single bloody stool and some blood in the urine. Rectal exam noted hard stool which was hemoccult negative. UA noted no RBCs. Consulted GI who recommended hematology workup for her drop in platelets. Started on protonix 40 mg PO BID. 27Mar CT a/p including thigh noted large thigh hematoma with no evidence of other blood collections. Platelets continue to improve from their prior low of 102 (now 170) and is off heparin for DVT prophy at present. Constipation: Has had only a single BM since admit (which was noted to have some minimal bright red blood around it). Not much solid PO intake, though. Monitoring. On miralax and colace BID. See GI's recommendations in their note. UTI: 24Mar UCx grew E coli. Patient presently denies any urinary symptoms. Completed five day course of levaquin, then ancef on 28Mar. Dementia: Reported history of same. Some mild disorientation here at times, but carries conversation well and seems to understand what her condition is. Continuing to re-orient prn. Head contusion: S/p fall. 24Mar CT head noted no acute intracranial abnormality. Ongoing local wound care prn. Hypothyroidism: Pending info from daughter on her home dose of Synthroid. No acute changes as inpatient. Total Time Spent: Greater than 30 minutes This includes examination of the patient, discharge planning, medication reconciliation, and communication with other providers. Discharge Instructions Please refer to the electronic Patient Visit Report (Discharge Instructions) for additional information. Follow-Up Orthopedics, Gastroenterology Resident Tracking Resident Involvement: Resident Care Provided Care Provided: Adult Hospital Medicine (inpatient) Assessment/Plan Resident Physician Supervision Note: I was present with Dr. Del Rosario during the history and exam. I discussed the case with the resident and agree with the findings and plan as documented in the note. Any exceptions or clarifications are listed here. Pt states that her hip pain continues to improve and that she will be fully participating in rehab therapy. She has gotten to bedside chair and is only mildly discomfited. She states she has not had any bloody BM and has no abdominal pain. Her L knee is swollen from edema but nontender and w/ good ROM with some crepitus without pain. Hemoglobin has remained stable at this point on PPI without further bloody BM and with negative guiac. Large hematoma of the hip present on CT. Other acute and chronic medical issues stable as noted above.
[2017-11-08 13:46] VITALS: BP 157/77; PULSE 83; TEMP 37; O2SAT 94
[2017-11-08 15:06] VITALS: BP 159/74; PULSE 81; TEMP 37; O2SAT 100
== END 2017-11-08 16:40 | DRG 480 ==
LOC: EDBD 02:01 → C.EDB 02:03 → C.MSW 04:55 → ENRESERV 05:01 → C.2T 13:49 → EDBEDREQ 13:54 → ENRESERV 14:03 → C.MSICU 14:45 → ENRESERV 14:51 → C.3E 11-04 17:27
PROVIDERS: ADMIT Hospitalist; ATTEND Family Medicine
PROC: 0QS706Z Reposition Left Upper Femur with Intramedullary Internal Fixation Device, Open Approach (ICD-10-PCS; principal; 2017-11-03 09:00)
DX: S72.22XA Displaced subtrochanteric fracture of left femur, initial encounter for closed fracture (principal); R57.8 Other shock; G93.41 Metabolic encephalopathy; N39.0 Urinary tract infection, site not specified; D62 Acute posthemorrhagic anemia; T40.2X5A Adverse effect of other opioids, initial encounter; T40.4X5A Adverse effect of other synthetic narcotics, initial encounter; B96.20 Unspecified Escherichia coli [E. coli] as the cause of diseases classified elsewhere; S00.83XA Contusion of other part of head, initial encounter; E86.0 Dehydration; I95.89 Other hypotension; D69.59 Other secondary thrombocytopenia; K59.00 Constipation, unspecified; E03.9 Hypothyroidism, unspecified; F03.90 Unspecified dementia, unspecified severity, without behavioral disturbance, psychotic disturbance, mood disturbance, and anxiety; Z51.81 Encounter for therapeutic drug level monitoring; Z79.899 Other long term (current) drug therapy; Z66 Do not resuscitate; Z91.81 History of falling; W01.0XXA Fall on same level from slipping, tripping and stumbling without subsequent striking against object, initial encounter; Y93.G3 Activity, cooking and baking; Y92.129 Unspecified place in nursing home as the place of occurrence of the external cause; Y99.8 Other external cause status

== ENCOUNTER → 2017-11-15 | Outpatient (CLI) | payer OTHER ==
[~2017-11-15] MED LIST: ACET-1047 PO; CLC100 PO; MOMLX PO; MRLP17 PO; PRT40 PO; SENN8.6T7 PO
[2017-11-15 09:28] LABS: HEMATOCRIT 26.9 % (37-47); HEMOGLOBIN 8.7 g/dL (12.0-16.0)
== END ==
LOC: C.LABFOXAE 08:20
PROVIDERS: ATTEND Internal Medicine
DX: D64.9 Anemia, unspecified (principal)

== ENCOUNTER → 2017-12-11 | Outpatient (CLI) | payer OTHER | LOC: C.LABFOXAC 09:11 → EDSTATUS 12-12 07:40 | PROVIDERS: ATTEND Internal Medicine | DX: E03.9 Hypothyroidism, unspecified (principal) ==

== ENCOUNTER → 2017-12-26 | Outpatient (CLI) | payer OTHER | END | disposition home or self-care (01) | LOC: C.LABFOXDH 08:26 | PROVIDERS: ATTEND Internal Medicine | DX: E03.9 Hypothyroidism, unspecified (principal) ==

== ENCOUNTER → 2018-02-22 | Outpatient (CLI) | payer OTHER ==
[~2018-02-22] MED LIST changes: -ACET-1047 PO; +ACET-1311 PO; +BISA10SU38 PR; -CLC100 PO; +LEVO75TA5 PO; +MOML PO; -MOMLX PO; -MRLP17 PO; +ONDA4TAB46 PO; +PANT40TA PO; +POLY335019 PO; -PRT40 PO; +SENN-65 PO; -SENN8.6T7 PO; +SERT50TA PO; +SODIENE PR
== END | disposition home or self-care (01) ==
LOC: C.LABFOXDH 08:18
PROVIDERS: ATTEND Internal Medicine
DX: M26.629 Arthralgia of temporomandibular joint, unspecified side (principal)

== ENCOUNTER 2018-03-11 15:28 | Inpatient (IN) | payer OTHER ==
[~2018-03-11] VITALS: Ht 167.6 cm; Wt 43.1 kg
[2018-03-11] MEDS ORDERED: SODIUM CHLORIDE 0.9% 1000ML 1,000 ML IV ONE (15:39)
--- NOTE | 2018-03-11 15:52 | EMERGENCY ROOM VISIT NOTE ---
History Report prepared by Shivani: Carli Cosby Under the Supervision of: Dr. Estella Tomlin D.O. First contact with patient: 15:29 Chief Complaint: HIP PAIN Stated Complaint: FALL/HIP PAIN History of Present Illness This history is limited secondary to the patient's history of dementia. The patient is an 87 year old female who presents to the Emergency Room with complaints of constant right hip pain after a falling episode that occurred this morning. She has injured her left hip previously. She denies having pain in the left hip, shoulders, or left leg. Over the past 2 days she has had bowel incontinence according to detention report. [facility] report also questions near syncope versus syncope as they were trying to assist the patient up during fall today. Source of History: patient History Limited By: dementia Onset: this morning Position: leg (right) Quality: other (pain from traumatic fall) Timing: constant Note: No left leg pain, no shoulder pain. Review of Systems See HPI for pertinent positives & negatives. A total of 10 systems reviewed and were otherwise negative. Past Medical & Surgical Medical Problems: (1) Hip fracture (2) Hypothyroidism (3) Syncope Family History No pertinent family history Social History Smoking Status: Never Smoker Drug Use: none Marital Status: Housing Status: assisted living Occupation Status: retired Current/Historical Medications Scheduled Levothyroxine Sodium (Levothyroxine Sodium), 75 MCG PO QAM Pantoprazole (Protonix), 40 MG PO BID Polyethylene Glycol 3350 (Miralax), 17 GM PO DAILY Senna/Docusate Sod (Senokot S), 2 TAB PO HS Sertraline (Zoloft), 75 MG PO DAILY Scheduled PRN Acetaminophen (Tylenol), 650 MG PO Q6H PRN for Pain or Fever Bisacodyl (Dulcolax), 1 SUPP GA Q48 HRS PRN for Constipation Magnesium Hydroxide (Milk Of Magnesia), 30 ML PO Q48HR PRN for IF NO BM 2 DAYS. Ondansetron Hcl (Zofran), 4 MG PO Q8 PRN for Nausea or Vomiting Sodium Phosphate/Biphosphate (Fleet Enema), 1 EA GA Q72HRS PRN for IF NO RESULTS FROM MOM Allergies Coded Allergies: Amoxicillin (Verified Allergy, Unknown, [place] LIST, 01/23/18) Clavulanic Acid (Verified Allergy, Unknown, [place] LIST, 01/23/18) Physical Exam Vital Signs Date Time Temp Pulse Resp B/P (MAP) Pulse Ox O2 Delivery O2 Flow Rate FiO2 03/11/18 16:32 73 20 103/64 92 Room Air 03/11/18 15:45 36.9 69 22 133/79 92 Room Air 03/11/18 15:36 71 Physical Exam GENERAL: alert, well appearing, well nourished, no distress, non-toxic EYE EXAM: normal conjunctiva, PERRL and EOM's grossly intact OROPHARYNX: no exudate, no erythema, lips, buccal mucosa, and tongue normal and mucous membranes are moist NECK: supple, no nuchal rigidity, no adenopathy, non-tender LUNGS: Clear to auscultation. Normal chest wall mechanics, no w/r/r HEART: no murmurs, S1 normal and S2 normal ABDOMEN: abdomen soft, non-tender, normo-active bowel sounds, no masses, no rebound or guarding. BACK: Back is symmetrical on inspection and there is no deformity, no midline tenderness, no CVA tenderness. SKIN: Pale, no rashes and no bruising UPPER EXTREMITIES: upper extremities are grossly normal. LOWER EXTREMITIES: Decreased ROM at right hip secondary to pain. No obvious shortening or external rotation of RLE. Pain in the inguinal region. No pain with palpation of the iliac crest or right lateral hip. LLE full ROM. Bilateral normal pulse, normal sensation, no evidence of edema. NEURO EXAM: Normal sensorium, cranial nerves II-XII grossly intact, normal speech, no gross weakness of arms, no gross weakness of legs. Medical Decision & Procedures ER Provider Diagnostic Interpretation: Radiology results have been interpreted by the radiologist and reviewed by me. SINGLE VIEW CHEST CLINICAL HISTORY: Trauma. Syncope. FINDINGS: An AP, portable, supine chest radiograph is compared to study dated 11/03/2017. The examination is degraded by portable technique and patient rotation. The heart is top normal for projection and there is atherosclerotic calcification of the thoracic aorta. Chronic interstitial thickening is similar to previous. No airspace consolidation or large pleural effusion is identified. No pneumothorax is seen. The skeletal structures are osteopenic. The bony thorax is grossly intact. IMPRESSION: No acute cardiopulmonary abnormality. Electronically signed by: Charles Tabares M.D. 03/11/2018 4:02 PM Dictated Date/Time: 03/11/2018 4:00 PM [~ rep ct add3]] AP PELVIS AND RIGHT HIP 3 VIEWS CLINICAL HISTORY: trauma COMPARISON STUDY: 11/03/2017 FINDINGS: There is an internally fixated intertrochanteric left hip fracture. There is acute displaced subcapital right hip fracture. There is an old deformity of the intertrochanteric portion of the right hip. There is an equivocal fracture the right superior pubic ramus. There is no SI joint diastases. There is no symphysis diastases. IMPRESSION: 1. Acute displaced subcapital right hip fracture. 2. Equivocal fracture of the right superior pubic ramus. Electronically signed by: Chong Reis M.D. 03/11/2018 4:04 PM Dictated Date/Time: 03/11/2018 4:02 PM Laboratory Results 03/11/18 16:24 Red Blood Count 4.13, Mean Corpuscular Volume 90.8, Mean Corpuscular Hemoglobin 30.8, Mean Corpuscular Hemoglobin Concent 33.9, Mean Platelet Volume 8.9, Neutrophils (%) (Auto) 84.7, Lymphocytes (%) (Auto) 5.9, Monocytes (%) (Auto) 7.4, Eosinophils (%) (Auto) 0.9, Basophils (%) (Auto) 0.3, Neutrophils # (Auto) 9.97, Lymphocytes # (Auto) 0.69, Monocytes # (Auto) 0.87, Eosinophils # (Auto) 0.10, Basophils # (Auto) 0.04 03/11/18 16:24 Test 03/11/18 16:06 03/11/18 16:24 Urine Color DK YELLOW Urine Appearance TURBID (CLEAR) Urine pH 6.5 (4.5-7.5) Urine Specific [place] 1.013 (1.000-1.030) Urine Protein TRACE (NEG) Urine Glucose (UA) NEG (NEG) Urine Ketones NEG (NEG) Urine Occult Blood 1+ (NEG) Urine Nitrite POS (NEG) Urine Bilirubin NEG (NEG) Urine Urobilinogen NEG (NEG) Urine Leukocyte Esterase LARGE (NEG) Urine WBC (Auto) >30 /hpf (0-5) Urine RBC (Auto) 5-10 /hpf (0-4) Urine Hyaline Casts (Auto) /lpf (0-5) Urine Epithelial Cells (Auto) 5-10 /lpf (0-5) Urine Bacteria (Auto) 4+ (NEG) Urine Pathogenic Casts /lpf (0) Urine Yeast (Auto) (NONE PRSENT) White Blood Count 11.76 K/uL (4.8-10.8) Red Blood Count 4.13 M/uL (4.2-5.4) Hemoglobin 12.7 g/dL (12.0-16.0) Hematocrit 37.5 % (37-47) Mean Corpuscular Volume 90.8 fL (80-100) Mean Corpuscular Hemoglobin 30.8 pg (25-34) Mean Corpuscular Hemoglobin Concent 33.9 g/dl (32-36) Platelet Count 249 K/uL (130-400) Mean Platelet Volume 8.9 fL (7.4-10.4) Neutrophils (%) (Auto) 84.7 % Lymphocytes (%) (Auto) 5.9 % Monocytes (%) (Auto) 7.4 % Eosinophils (%) (Auto) 0.9 % Basophils (%) (Auto) 0.3 % Neutrophils # (Auto) 9.97 K/uL (1.4-6.5) Lymphocytes # (Auto) 0.69 K/uL (1.2-3.4) Monocytes # (Auto) 0.87 K/uL (0.11-0.59) Eosinophils # (Auto) 0.10 K/uL (0-0.5) Basophils # (Auto) 0.04 K/uL (0-0.2) RDW Standard Deviation 47.6 fL (36.4-46.3) RDW Coefficient of Variation 14.5 % (11.5-14.5) Immature Granulocyte % (Auto) 0.8 % Immature Granulocyte # (Auto) 0.09 K/uL (0.00-0.02) Prothrombin Time 10.8 SECONDS (9.0-12.0) Prothromb Time International Ratio 1.0 (0.9-1.1) Activated Partial Thromboplast Time 26.1 SECONDS (21.0-31.0) Partial Thromboplastin Ratio 1.0 Anion Gap 8.0 mmol/L (3-11) Estimated GFR () 65.3 Estimated GFR (Non- 56.3 BUN/Creatinine Ratio 13.5 (10-20) Calcium Level 9.1 mg/dl (8.5-10.1) Magnesium Level 2.2 mg/dl (1.8-2.4) Total Bilirubin 0.9 mg/dl (0.2-1) Direct Bilirubin 0.3 mg/dl (0-0.2) Aspartate Amino Transf (AST/SGOT) 39 U/L (15-37) Alanine Aminotransferase (ALT/SGPT) 33 U/L (12-78) Alkaline Phosphatase 117 U/L (45-117) Troponin I < 0.015 ng/ml (0-0.045) Pro-B-Type Natriuretic Peptide 259 pg/ml (0-1800) Total Protein 8.0 gm/dl (6.4-8.2) Albumin 3.3 gm/dl (3.4-5.0) Date/Time Source Procedure Growth Status 03/11/18 00:00 Nasal MRSA DNA Surveillance Screen - Final Specimen Negative for MRSA by DNA Probe Complete Laboratory results per my review. Medications Administered Medications (Trade) Dose Ordered Sig/Viky Route Start Time Stop Time Status Last Admin Dose Admin Sodium Chloride 1,000 ml @ 150 mls/hr Q6H40M ONCE IV 03/11/18 15:39 03/11/18 18:47 DC 03/11/18 16:31 150 MLS/HR Acetaminophen (Tylenol Tab) 650 mg Q4H PRN PO 03/11/18 17:00 04/10/18 16:59 03/11/18 18:42 650 MG ECG Per My Interpretation Indication: other (fall ) Rate (beats per minute): 72 Rhythm: sinus rhythm Findings: PAC, Q waves (III, AVF ), no acute ischemic change, other (low voltage throughout) ED Course [1531]: The patient was evaluated in room B3. A complete history and physical exam was performed. 1539: Ordered Sodium Chloride 1000 ml @ 150 mls/hr. 1623: Discussed with [place], patient's POA and niece. Confirms DNR/DNI status, is agreeable to pursuing surgical options. 1643: I discussed the case with Dr. [facility] Hospitalist. He will evaluate the patient for further treatment. Medical Decision Differential diagnosis: Etiologies such as fracture, dislocation, intra-abdominal, pneumothorax, intrathoracic , intracranial, neurologic, as well as other traumatic pathologies were entertained. Patient and power of research attorney her niece are made aware of all results. Discussed plan for admission and orthopedic consultation. Unclear if patient did have a near syncope versus syncopal event today. Given patient's dementia she does not remember the fall and is a very poor historian. Patient's vital signs stable here and labs reassuring. No dysrhythmia noted on telemetry, no evidence of a focal neuro deficit. No evidence of other trauma including head trauma. Ro catheter placed, however UA pending at time of discussion with hospitalist. Medication Reconcilliation Current Medication List: was personally reviewed by me Blood Pressure Screening Patient's blood pressure: Normal blood pressure Consults Time Called: 1642 Consulting Physician: Dr. Webber Hospitalist Returned Call: 1642 I discussed the case with Dr. Webber Hospitalist. He will evaluate the patient for further treatment. Impression Primary Impression: Subcapital fracture of right hip Additional Impressions: Fall Dementia Scribe Attestation The scribe's documentation has been prepared under my direction and personally reviewed by me in its entirety. I confirm that the note above accurately reflects all work, treatment, procedures, and medical decision making performed by me. Departure Information Dispostion Being Evaluated By Hospitalist Referrals Adrianne Gonzales (PCP) Patient Instructions My [facility] Health Problem Qualifiers Primary Impression: Subcapital fracture of right hip Encounter type: initial encounter Fracture type: closed Qualified Codes: S72.011A - Unspecified intracapsular fracture of right femur, initial encounter for closed fracture Additional Impressions: Fall Encounter type: initial encounter Qualified Codes: W19.XXXA - Unspecified fall, initial encounter Dementia Dementia type: unspecified type Dementia behavioral disturbance: without behavioral disturbance Qualified Codes: F03.90 - Unspecified dementia without behavioral disturbance
--- NOTE | 2018-03-11 16:03 | DIAGNOSTIC IMAGING REPORT ---
SINGLE VIEW CHEST CLINICAL HISTORY: Trauma. Syncope. FINDINGS: An AP, portable, supine chest radiograph is compared to study dated 11/03/2017. The examination is degraded by portable technique and patient rotation. The heart is top normal for projection and there is atherosclerotic calcification of the thoracic aorta. Chronic interstitial thickening is similar to previous. No airspace consolidation or large pleural effusion is identified. No pneumothorax is seen. The skeletal structures are osteopenic. The bony thorax is grossly intact. IMPRESSION: No acute cardiopulmonary abnormality. Electronically signed by: Charles Tabares M.D. 03/11/2018 4:02 PM Dictated Date/Time: 03/11/2018 4:00 PM
--- NOTE | 2018-03-11 16:05 | DIAGNOSTIC IMAGING REPORT ---
AP PELVIS AND RIGHT HIP 3 VIEWS CLINICAL HISTORY: trauma COMPARISON STUDY: 11/03/2017 FINDINGS: There is an internally fixated intertrochanteric left hip fracture. There is acute displaced subcapital right hip fracture. There is an old deformity of the intertrochanteric portion of the right hip. There is an equivocal fracture the right superior pubic ramus. There is no SI joint diastases. There is no symphysis diastases. IMPRESSION: 1. Acute displaced subcapital right hip fracture. 2. Equivocal fracture of the right superior pubic ramus. Electronically signed by: Chong Reis M.D. 03/11/2018 4:04 PM Dictated Date/Time: 03/11/2018 4:02 PM
[2018-03-11] MEDS ORDERED: POLY335019 PO (16:21)
[2018-03-11] MEDS ORDERED: SENN-65 PO (16:21)
[2018-03-11] MEDS ORDERED: ONDA4TAB46 PO (16:21)
[2018-03-11] MEDS ORDERED: SERT50TA PO (16:21)
[2018-03-11] MEDS ORDERED: ACET-1311 PO (16:21)
[2018-03-11] MEDS ORDERED: BISA10SU38 PR (16:21)
[2018-03-11] MEDS ORDERED: LEVO75TA5 PO (16:21)
[2018-03-11] MEDS ORDERED: MOML PO (16:21)
[2018-03-11] MEDS ORDERED: SODIENE PR (16:21)
[2018-03-11] MEDS ORDERED: PANT40TA PO (16:21)
[2018-03-11 16:36] LABS: BASO % 0.3 %; BASO ABS # 0.04 K/uL (0-0.2); EOS % 0.9 %; HEMATOCRIT 37.5 % (37-47); HEMOGLOBIN 12.7 g/dL (12.0-16.0); IG# 0.09 K/uL (0.00-0.02); LYMPH % 5.9 %; LYMPH ABS # 0.69 K/uL (1.2-3.4); MEAN CELL VOLUME 90.8 fL (80-100); MEAN CORPUSCULAR HEMOGLOBIN 30.8 pg (25-34); MEAN CORPUSCULAR HGB CONC 33.9 g/dl (32-36); MEAN PLATELET VOLUME 8.9 fL (7.4-10.4); MONO % 7.4 %; MONO ABS # 0.87 K/uL (0.11-0.59); NEUT % 84.7 %; NEUT ABS # 9.97 K/uL (1.4-6.5); PLATELET COUNT 249 K/uL (130-400); RED CELL DISTRIBUTION WIDTH CV 14.5 % (11.5-14.5); RED CELL DISTRIBUTION WIDTH SD 47.6 fL (36.4-46.3); WHITE BLOOD COUNT 11.76 K/uL (4.8-10.8)
[2018-03-11 16:46] LABS: PTT PATIENT 26.1 SECONDS (21.0-31.0)
[2018-03-11] MEDS ORDERED: ONDANSETRON 4 MG TAB PO PRN (17:00)
[2018-03-11] MEDS ORDERED: ALUMINUM/MAGNESIUM/SIMETH (MAALOX MAX) 30 ML UDC PO PRN (17:00)
[2018-03-11] MEDS ORDERED: BISACODYL 10 MG SUPP PR PRN ×2 (17:00)
[2018-03-11] MEDS ORDERED: MAGNESIUM HYDROXIDE SUSP 30 ML UDC PO PRN ×3 (17:00)
[2018-03-11] MEDS ORDERED: ACETAMINOPHEN 325 MG TAB PO PRN ×2 (17:00)
[2018-03-11] MEDS ORDERED: NALOXONE HCL 0.4 MG/1 ML VIAL/CARP IV PRN (17:00)
[2018-03-11] MEDS ORDERED: SOD PHOSPHATE/SOD BIPHOSPHATE ENEMA 132 ML BTL PR PRN ×2 (17:00)
[2018-03-11] MEDS ORDERED: POLYETHYLENE (MIRALAX) 17 GM PACK PO PRN ×2 (17:00)
[2018-03-11] MEDS ORDERED: ONDANSETRON INJ 2 MG/ML 2 ML VIAL IV PRN (17:00)
[2018-03-11 17:04] LABS: ALBUMIN 3.3 gm/dl (3.4-5.0); ALKALINE PHOSPHATASE 117 U/L (45-117); ALT/SGPT 33 U/L (12-78); AST/SGOT 39 U/L (15-37); BLOOD UREA NITROGEN 12 mg/dl (7-18); CALCIUM 9.1 mg/dl (8.5-10.1); CARBON DIOXIDE 27 mmol/L (21-32); CREATININE 0.91 mg/dl (0.60-1.20); GLUCOSE 120 mg/dl (70-99); POTASSIUM 3.9 mmol/L (3.5-5.1); SODIUM 135 mmol/L (136-145)
[2018-03-11 18:30] VITALS: BP 176/88; PULSE 71; TEMP 36.8; BMI 34.3
--- NOTE | 2018-03-11 18:47 | ORTHOPEDIC CONSULTATION ---
DATE OF CONSULTATION: 03/11/2018 REASON FOR CONSULTATION: I was consulted to see the patient for an injury to her right hip. HISTORY OF PRESENT ILLNESS: She is a pleasant 87-year-old female who lives at [facility] and suffers with mild dementia. She reports that she fell and injured her right hip. She tells me that this is the second time that she has injured her right hip. The right hip was injured previously several months ago and she had surgery. Review of the records indicates that it was actually her left hip that was broken, but she is adamant that it was her right. She denies other injury. PAST MEDICAL HISTORY: Her past medical history is significant for hypothyroidism. ALLERGY: THERE IS AN ALLERGY TO AMOXICILLIN AND CLAVULANIC ACID ON THE CHART. PAST SURGICAL HISTORY: Other than her prior hip surgery. She denies tonsils, appendix, gallbladder, hysterectomy. MEDICATIONS: Medication calvillo she takes Tylenol and Synthroid. Review of the x-rays reveals a healed left hip fracture. There is a suggestion of a pubic ramus fracture. Degenerative change of the lumbar spine. There is an acute displaced femoral neck fracture on the right side. The right proximal femoral geometry is abnormal. The lesser trochanter is enlarged as is the greater trochanter. This is a chronic finding that was present on her previous x-ray back in October. This is a transcervical femoral neck fracture. Lab calvillo, her white count is 12, hemoglobin 13, hematocrit 38, platelet count is 249. Coagulations are within normal limits. Her PRP is noted. Her albumin is 33. Her urine is grossly abnormal, vitamin D level is pending. PHYSICAL EXAMINATION: GENERAL: She responds appropriately; however, she is oriented. She is not oriented to place, but is to person. HEAD AND NECK: She moves her neck freely. Her head is atraumatic. EXTREMITIES: She moves both upper extremities and her left lower extremity without difficulty. The right leg, she is unable to move. There is tenderness at the right knee and also at the right hip as well as over the right half of the anterior symphysis pubis. No tenderness in the back of the leg. Her leg is very small. She can flex and extend her ankle and toes with normal strength bilaterally. She has a 1+ posterior tibial pulse bilaterally with normal sensation. She cannot bend her knee or move her leg. Her right knee is not swollen. IMPRESSION: 1. Right hip fracture. 2. Right knee pain and also probable lateral compression type 1 pelvis fracture. PLAN: Findings discussed. I talked with the patient and reviewed with her the findings and recommendations. I also discussed with her niece, power of supplemental manager, Ileana Freeman, . We talked about operative and nonoperative management. We discussed the pros and cons, risks and benefits of each form of management and reached a decision to proceed with a hemiarthroplasty. We talked about the risks including but not limited to infection, bleeding, pain, scarring, nerve and blood vessel damage, blood clot, embolism, heart attack, stroke, and . Implants can wear out, break, lose or dislocate. Her dementia may affect her ability to participate in rehabilitation and I cannot guarantee that she will be able to ambulate again. She will be made n.p.o. after midnight. Her heparin will be held. We will use mechanical devices for DVT prophylaxis. Her labs are in order. She will be monitored and improved by medicine. N.p.o. after midnight and we will plan for hemiarthroplasty tomorrow morning. I will be happy to perform the operation if Dr. Cavazos is not available. Check an x-ray of the right knee.
--- NOTE | 2018-03-11 19:24 | DIAGNOSTIC IMAGING REPORT ---
RIGHT KNEE 2 VIEWS CLINICAL HISTORY: Right knee pain. Fall. FINDINGS: AP and crosstable lateral views of the right knee are obtained. No prior studies are available for comparison at the time of dictation. The skeletal structures are osteopenic. No fracture is seen. A right hip arthroplasty is in near-anatomic alignment. No periprosthetic lucency is identified. There has been undersurface remodeling of the patella. No significant joint effusion is identified. The overlying soft tissues are normal in appearance. Atherosclerotic calcification is observed in the popliteal artery. IMPRESSION: There is no radiographic evidence of right knee fracture. Electronically signed by: Charles Tabares M.D. 03/11/2018 7:22 PM Dictated Date/Time: 03/11/2018 7:21 PM
--- NOTE | 2018-03-11 20:16 | History and Physical ---
History & Physical Date & Time of Service: Mar 11, 2018 at 20:02 Chief Complaint: Subcapital Fracture Of Right Hip,Syncope Primary Care Physician: Salo Dong M.D. Past Medical/Surgical History Medical Problems: (1) Fall (2) Fall (3) Hip fracture (4) Hypothyroidism (5) Laceration of head (6) Laceration of head Family History No pertinent family history Social History Smoking Status: Never Smoker Drug Use: none Marital Status: Housing status: lives alone Occupational Status: retired Immunizations History of Influenza Vaccine: Unknown History of Tetanus Vaccine?: Unknown History of Pneumococcal: Unknown History of Hepatitis B Vaccine: Unknown Allergies Coded Allergies: Amoxicillin (Verified Allergy, Unknown, [place] LIST, 01/23/18) Clavulanic Acid (Verified Allergy, Unknown, [place] LIST, 01/23/18) Home Medications Scheduled Levothyroxine Sodium (Levothyroxine Sodium), 75 MCG PO QAM Pantoprazole (Protonix), 40 MG PO BID Polyethylene Glycol 3350 (Miralax), 17 GM PO DAILY Senna/Docusate Sod (Senokot S), 2 TAB PO HS Sertraline (Zoloft), 75 MG PO DAILY Scheduled PRN Acetaminophen (Tylenol), 650 MG PO Q6H PRN for Pain or Fever Bisacodyl (Dulcolax), 1 SUPP [place] Q48 HRS PRN for Constipation Magnesium Hydroxide (Milk Of Magnesia), 30 ML PO Q48HR PRN for IF NO BM 2 DAYS. Ondansetron Hcl (Zofran), 4 MG PO Q8 PRN for Nausea or Vomiting Sodium Phosphate/Biphosphate (Fleet Enema), 1 EA NJ Q72HRS PRN for IF NO RESULTS FROM MOM Physical Exam Vital Signs Date Time Temp Pulse Resp B/P (MAP) Pulse Ox O2 Delivery O2 Flow Rate FiO2 03/11/18 18:30 36.8 71 18 176/88 Room Air 03/11/18 17:37 36.9 73 20 153/84 94 03/11/18 17:12 81 03/11/18 16:32 73 20 103/64 92 Room Air 03/11/18 15:45 36.9 69 22 133/79 92 Room Air 03/11/18 15:36 71 Diagnostics Laboratory Results Results Past 24 Hours Test 03/11/18 16:06 03/11/18 16:24 03/11/18 19:23 Range/Units Urine Color DK YELLOW Urine Appearance TURBID CLEAR Urine pH 6.5 4.5-7.5 Urine Specific [place] 1.013 1.000-1.030 Urine Protein TRACE NEG Urine Glucose (UA) NEG NEG Urine Ketones NEG NEG Urine Occult Blood 1+ NEG Urine Nitrite POS NEG Urine Bilirubin NEG NEG Urine Urobilinogen NEG NEG Urine Leukocyte Esterase LARGE NEG Urine WBC (Auto) >30 0-5 /hpf Urine RBC (Auto) 5-10 0-4 /hpf Urine Hyaline Casts (Auto) 0-5 /lpf Urine Epithelial Cells (Auto) 5-10 0-5 /lpf Urine Bacteria (Auto) 4+ NEG Urine Pathogenic Casts 0 /lpf Urine Yeast (Auto) NONE PRSENT White Blood Count 11.76 4.8-10.8 K/uL Red Blood Count 4.13 4.2-5.4 M/uL Hemoglobin 12.7 12.0-16.0 g/dL Hematocrit 37.5 37-47 % Mean Corpuscular Volume 90.8 80-100 fL Mean Corpuscular Hemoglobin 30.8 25-34 pg Mean Corpuscular Hemoglobin Concent 33.9 32-36 g/dl Platelet Count 249 130-400 K/uL Mean Platelet Volume 8.9 7.4-10.4 fL Neutrophils (%) (Auto) 84.7 % Lymphocytes (%) (Auto) 5.9 % Monocytes (%) (Auto) 7.4 % Eosinophils (%) (Auto) 0.9 % Basophils (%) (Auto) 0.3 % Neutrophils # (Auto) 9.97 1.4-6.5 K/uL Lymphocytes # (Auto) 0.69 1.2-3.4 K/uL Monocytes # (Auto) 0.87 0.11-0.59 K/uL Eosinophils # (Auto) 0.10 0-0.5 K/uL Basophils # (Auto) 0.04 0-0.2 K/uL RDW Standard Deviation 47.6 36.4-46.3 fL RDW Coefficient of Variation 14.5 11.5-14.5 % Immature Granulocyte % (Auto) 0.8 % Immature Granulocyte # (Auto) 0.09 0.00-0.02 K/uL Prothrombin Time 10.8 9.0-12.0 SECONDS Prothromb Time International Ratio 1.0 0.9-1.1 Activated Partial Thromboplast Time 26.1 21.0-31.0 SECONDS Partial Thromboplastin Ratio 1.0 Sodium Level 135 136-145 mmol/L Potassium Level 3.9 3.5-5.1 mmol/L Chloride Level 100 98-107 mmol/L Carbon Dioxide Level 27 21-32 mmol/L Anion Gap 8.0 3-11 mmol/L Blood Urea Nitrogen 12 7-18 mg/dl Creatinine 0.91 0.60-1.20 mg/dl Estimated GFR () 65.3 Estimated GFR (Non- 56.3 BUN/Creatinine Ratio 13.5 10-20 Random Glucose 120 70-99 mg/dl Calcium Level 9.1 8.5-10.1 mg/dl Magnesium Level 2.2 1.8-2.4 mg/dl Total Bilirubin 0.9 0.2-1 mg/dl Direct Bilirubin 0.3 0-0.2 mg/dl Aspartate Amino Transf (AST/SGOT) 39 15-37 U/L Alanine Aminotransferase (ALT/SGPT) 33 12-78 U/L Alkaline Phosphatase 117 45-117 U/L Troponin I < 0.015 0-0.045 ng/ml Pro-B-Type Natriuretic Peptide 259 0-1800 pg/ml Total Protein 8.0 6.4-8.2 gm/dl Albumin 3.3 3.4-5.0 gm/dl Microbiology Results 03/11/18 MRSA DNA Surveillance Screen, Received Pending 03/11/18 Urine Culture, Received Pending Impression Assessment and Plan admit #[id number] Advanced Directives Existing Living Will: Yes Existing Power of Computer Support Specialist Instructor: Yes Resuscitation Status VTE Prophylaxis Will order VTE Prophylaxis: Yes
[2018-03-11] MEDS: DOCUSATE SODIUM/SENNA 50/8.6MG TAB PO SCH (20:37)
[2018-03-11] MEDS: PANTOprazole SOD 40 MG TAB PO SCH (20:37)
--- NOTE | 2018-03-11 20:49 | Progress Note ---
Progress Note Date of Service Mar 11, 2018. Progress Note Pt is a 87 yo female who is scheduled for right bipolar hip surgery tomorrow. Pt is a resident at [facility] who fell and broke her right hip today. Back in October 2017, she had broken her left hip and had IM nailing on the left hip. Pt PMH significant only for occasional GERD and hypothyroidism, anxiety and depression. Pt also has dementia. Upon interviewing the patient, the patient is confused and not oriented. Called her niece, Ileana Freeman, who is her POA and obtained medical history from her. Discussed options of anesthesia of spinal vs general anesthesia including risks and benefits for both with her niece. All questions and concerns were answered and phone consent was obtained from POA. Pt is made NPO after midnight except for sips of water with meds on DOS.
--- NOTE | 2018-03-11 20:49 | HISTORY & PHYSICAL EXAMINATION ---
DATE OF ADMISSION: 03/11/2018 CHIEF COMPLAINT: Fall with hip fracture. HISTORY OF PRESENT ILLNESS: The patient is a very pleasant 87-year-old female. She really does not remember much of her HPI. It is all really secondhand from what the staff told her and her daughter. She apparently had an incontinent episode, was standing out, got weak, fell down, they got her into bed. She apparently then was unconscious for maybe 20 seconds or so in the bed and then woke up again after the initial fall which was to the floor. She apparently had a degree of hip pain and because of the fainting spell as well as the hip pain, she was brought to the ER for further evaluation where she was found to have a hip fracture. REVIEW OF SYSTEMS: Otherwise negative except for as above, both because she does not really remember the HPI due to loss of consciousness, but also because of a degree of dementia. PAST MEDICAL HISTORY: Includes presumed osteoporosis with a prior hip fracture, hypothyroidism. SOCIAL HISTORY: She is not a smoker. She is . She lives at [facility]. ALLERGIES: No known drug allergies. PAST SURGICAL HISTORY: Most notable for a hip fracture repair about three months ago here. During that time, she had rather significant acute blood loss anemia, was briefly hypotensive, however, otherwise did well. PHYSICAL EXAMINATION: VITAL SIGNS: Temp 36.9, pulse 73, respiratory rate 20, blood pressure 153/84, 94% on room air. GENERAL: She is awake, alert, orientation is questionable, but she is very pleasant and interactive, in no acute distress. HEENT: Normocephalic, atraumatic. Mucous membranes slightly dry. CARDIOVASCULAR: Regular without rubs, murmurs, or gallops. LUNGS: Clear to auscultation bilaterally. No rales, rhonchi, or wheezes with good effort. ABDOMEN: Soft, nondistended, nontender. No masses or organomegaly. EXTREMITIES: Without cyanosis, clubbing or edema. Her right lower extremity is slightly shortened and externally rotated compared to the left. SKIN: Shows no rashes, no pallor or icterus. MUSCULOSKELETAL: Yields the above noted right leg findings otherwise no gross lesions. NEUROLOGIC: Shows cranial nerves II through XII to be grossly intact. Gross motor and sensory intact. MENTAL STATUS: She is pleasant. She is interactive. She answers proximal questions well, but the rest of her mental status is somewhat suspect. LABS AND DIAGNOSTICS: CBC shows a white count 11.76, hemoglobin 12.7, platelets 249. Complete metabolic panel with sodium 135, potassium 3.9, chloride 100, CO2 27, BUN 12, creatinine 0.91, calcium 9.1, glucose 120. Total bili 0.9 with a direct of 0.3, AST 39, ALT 33, alkaline phosphatase 117. Troponin of less than 0.015. BNP of 259, total protein 8, albumin 3.3. PT of 10.8, PTT 26.1. Urinalysis is dark yellow, turbid, specific gravity 1.013, 1+ blood, positive nitrites, 4+ bacteria, but also 5-10 epithelial cells, greater than 30 white, 5-10 red. Her chest x-ray shows no acute cardiopulmonary abnormality. Her hip x-ray shows an acute displaced subcapital right hip fracture and probable acute fracture of the right superior pubic ramus. Knee x-ray shows no fracture. EKG is sinus with ectopy. No notable ischemic changes somewhat low voltage T waves, slightly nonspecifically flat. ASSESSMENT AND PLAN: 1. Syncope. It is difficult to tell exactly what the cause was. She does not really have much of a recollection. It is hard to tell if it is because she does not have any prodrome or simply because of dementia and the events of the day, making it harder for her to remember. Certainly, nothing appears ominous. Her cardiac enzymes are negative. Her EKG does not show any blocks or ischemic changes simply due to the lack of a decent history. For this, we will put her on cardiac monitoring overnight and check an echocardiogram. However, I highly suspect given incontinence at the start of it was probably a vagal episode. 2. Osteoporotic hip fracture as well as probable pubic ramus fracture. Given the risk benefit balance, it is very clear that she will do better with repair in spite of elevated operative risk over an average person. The last time she actually did very well perioperatively except for a rather significant blood loss requiring transfusion. In that respect, she is medically acceptable risk for the planned procedure and I have consulted Orthopedics and discussed with Orthopedics and I anticipate fracture repair tomorrow. 3. Presumed osteoporosis. She has been on vitamin D. Her level was low about three to four months ago. We will recheck to ensure replacing aggressively enough. If not, we will need to increase replacement. 4. Abnormal urine. She shows no real septic signs or symptoms. She has a very borderline white count, although it is really technically not even high and given her age and gender, it is more than likely that she would have a degree of chronic bacteria in her bladder. For now, to avoid risk of C. diff and other iatrogenic harm, we will hold off on empiric treatment, but we will follow urine culture as well as follow for any clear cut symptoms or fever or anything else that would clearly suggest that there is a UTI that needs treated. 5. Deep venous thrombosis prophylaxis, heparin subQ. 6. Prior acute blood loss anemia. Given that she had a rather significant bleed with her last hip fracture, although she is hemodynamically stable now with a stable hemoglobin, we will check hemoglobin q. 12 hours. until she is clearly stable. 7. Hypothyroidism. Continue her Synthroid. 8. Disposition: She will be admitted to telemetry under the [facility]. ZHENG
[2018-03-11] MEDS ORDERED: HEPARIN SOD 5000 UNIT/0.5 ML CARP SQ SCH (21:00)
[2018-03-11] MEDS ORDERED: DOCUSATE SODIUM/SENNA 50/8.6MG TAB PO SCH (21:00)
[2018-03-11] MEDS: SODIUM CHLOR 0.45% + 20MEQ KCL 1,000 ML IV SCH (21:24)
[2018-03-11] MEDS ORDERED: ERGOCALCIFEROL 50,000 INTER.UNIT CAP PO ONE (21:30)
[2018-03-12] VITALS (16 sets, daily range): BP systolic 94–173; BP diastolic 59–89; PULSE 53–94; TEMP 36.4–37.3; O2SAT 92–98
[2018-03-12] MEDS: LEVOTHYROXINE 75 MCG TAB PO SCH (05:54)
[2018-03-12] MEDS ORDERED: CEFAZOLIN SOD 2000MG/15 ML IV PUSH IV ONE (06:00)
[2018-03-12 06:45] LABS: BASO % 0.2 %; BASO ABS # 0.02 K/uL (0-0.2); EOS % 0.7 %; EOS ABS # 0.06 K/uL (0-0.5); HEMATOCRIT 31.8 % (37-47); HEMOGLOBIN 10.7 g/dL (12.0-16.0); IG# 0.02 K/uL (0.00-0.02); LYMPH % 11.8 %; LYMPH ABS # 0.96 K/uL (1.2-3.4); MEAN CELL VOLUME 90.6 fL (80-100); MEAN CORPUSCULAR HEMOGLOBIN 30.5 pg (25-34); MEAN CORPUSCULAR HGB CONC 33.6 g/dl (32-36); MEAN PLATELET VOLUME 8.9 fL (7.4-10.4); MONO % 9.1 %; MONO ABS # 0.74 K/uL (0.11-0.59); NEUT ABS # 6.31 K/uL (1.4-6.5); PLATELET COUNT 182 K/uL (130-400); RED CELL DISTRIBUTION WIDTH CV 14.5 % (11.5-14.5); RED CELL DISTRIBUTION WIDTH SD 47.7 fL (36.4-46.3); WHITE BLOOD COUNT 8.11 K/uL (4.8-10.8)
[2018-03-12 07:19] LABS: CALCIUM 8.1 mg/dl (8.5-10.1); CREATININE 0.78 mg/dl (0.60-1.20); POTASSIUM 4.3 mmol/L (3.5-5.1)
[2018-03-12] MEDS ORDERED: PHENYLEPHRINE 100MCG/ML 5ML SYR IV PRN (08:00)
[2018-03-12] MEDS ORDERED: ATROPINE SULFATE 0.1 MG/ML 5ML SYR IV PRN (08:00)
[2018-03-12] MEDS ORDERED: HYDROmorphone INJ 0.5 MG/0.5 ML SYR IV PRN (08:00)
[2018-03-12] MEDS ORDERED: EpHEDrine SULFATE INJ 50 MG/ML AMP IV PRN (08:00)
[2018-03-12] MEDS ORDERED: ONDANSETRON INJ 2 MG/ML 2 ML VIAL IV PRN ×2 (08:00→13:30)
[2018-03-12] MEDS: POLYETHYLENE (MIRALAX) 17 GM PACK PO SCH (08:19)
[2018-03-12] MEDS: PANTOprazole SOD 40 MG TAB PO SCH ×2 (08:20→20:29)
[2018-03-12] MEDS: SERTRALINE HCL 50 MG TAB PO SCH (08:20)
[2018-03-12] MEDS: CHOLECALCIFEROL 1000 INTER.UNIT TAB PO SCH (08:20)
[2018-03-12] MEDS ORDERED: MIDAZOLAM HCL 1 MG/ML 2ML VIAL ONE (08:43)
[2018-03-12] MEDS ORDERED: FENTANYL CITRATE INJ 50 MCG/1 ML 2 ML VIAL ONE (08:43)
[2018-03-12] MEDS ORDERED: BUPIVACAINE 0.5 % 5 MG/1 ML PF 10ML VIAL ONE (08:45)
--- NOTE | 2018-03-12 09:18 | Progress Note ---
Progress Note Date of Service Mar 12, 2018. Progress Note Saw patient today, she's resting in bed comfortably. Right leg slightly elevated on pillow for comfort. Tolerates ankle ROM, foot warm, nonpalpable distal pulses today as she doesn't stop moving her foot. No distal edema. Vincent Tejeda (POA) at bedside, consent reviewed and signed. Dr. Andre discussed with patient yesterday as well. All questions answered. Plan for OR today with Dr. Andre. Currently NPO. Consent on chart. Site marked previously.
[2018-03-12] MEDS ORDERED: PROPOFOL IV EMULSION 10 MG/ML 20 ML VIAL ONE (09:43)
[2018-03-12] MEDS ORDERED: EpHEDrine SULFATE INJ 50 MG/ML AMP ONE (09:59)
[2018-03-12] MEDS ORDERED: DEXAMETHASONE SOD INJ 4 MG/ML VIAL ONE (09:59)
[2018-03-12] MEDS ORDERED: PHENYLEPHRINE HCL INJ 10 MG/ML VIAL ONE ×2 (09:59→12:04)
[2018-03-12] MEDS ORDERED: ONDANSETRON INJ 2 MG/ML 2 ML VIAL ONE (10:00)
--- NOTE | 2018-03-12 10:14 | History & Physical Bridge Note ---
H&P Re-Evaluation Bridge Note: I have examined the patient, reviewed the History & Physical and in the interval since the performance of the History & Physical I have noted the following changes of clinical significance: No changes noted
[2018-03-12] MEDS: SODIUM CHLOR 0.45% + 20MEQ KCL 1,000 ML IV SCH ×2 (10:20→16:28)
[2018-03-12] MEDS ORDERED: CEFAZOLIN SOD 1000MG/7.5 ML IV PUSH ONE (10:27)
[2018-03-12] MEDS ORDERED: BACITRACIN 50000 UNIT VIAL ONE (10:31)
[2018-03-12] MEDS ORDERED: POVIDONE-IODINE OP SOLN 30 ML BTL ONE (10:31)
[2018-03-12] MEDS ORDERED: ALBUMIN HUMAN 5% 12.5 GM/250 ML VIAL IV ONE ×2 (12:12→12:26)
[2018-03-12] MEDS ORDERED: SOD PHOSPHATE/SOD BIPHOSPHATE ENEMA 132 ML BTL PR PRN (13:30)
[2018-03-12] MEDS ORDERED: OXYCODONE HCL IR 5 MG TAB (IMMEDIATE RELEASE) PO PRN (13:30)
[2018-03-12] MEDS ORDERED: ACETAMINOPHEN 325 MG TAB PO PRN (13:30)
[2018-03-12] MEDS ORDERED: MoRPHine SULFATE 2 MG/ML CARP IV PRN (13:30)
[2018-03-12] MEDS ORDERED: NALOXONE HCL 0.4 MG/1 ML VIAL/CARP IV PRN (13:30)
[2018-03-12] MEDS ORDERED: TRAMADOL HCL 50 MG TAB PO PRN (13:30)
[2018-03-12] MEDS ORDERED: BISACODYL 10 MG SUPP PR PRN (13:30)
--- NOTE | 2018-03-12 13:44 | [facility] Post Operative Brief Note ---
Immediate Operative Summary Operative Date Mar 12, 2018. Pre-Operative Diagnosis Osteoporotic Hip fracture of Right Hip Post-Operative Diagnosis Osteoporotic Hip fracture of Right Hip Procedure(s) Performed Right Cemented Bipolar Hip Surgeon Dr Andre Basin Operator Surgeon(s) Gail Castro PA-C Estimated Blood Loss 200CC Findings Consistent with Post-Op Diagnosis Specimens A: Right Femoral Head Drains None Anesthesia Type Spinal MAC Complication(s) none Disposition Accompanied Pt To Recover: no Disposition: Recovery Room / PACU
--- NOTE | 2018-03-12 13:48 | Family Medicine Progress Note ---
Progress Note Date of Service Mar 12, 2018. Subjective Pt evaluation today including: conversation w/ patient, conversation w/ family , physical exam, chart review, lab review Pain: Comfortable PO Intake: NPO Patient is a very pleasant 87 year old woman with a PMH significant for dementia with mcc placecment and prior hip fracture 3 months ago on the opposite side who is here for a hip fracture after a fall in her mcc. She had a witnessed episode of incontinence followed by a loss of consciousness and falling to the ground. She was able to return to the bed, but had persisting hip pain so she presented to the emergency room where she was found to have hip pain, and a shortened and externally rotated right leg on physical exam. X-Ray showed a displaced subcapital right hip fracture and a probable right pubic ramus fracture. She also was found to have bacteriuria on presentation. Today the patient is resting comfortably says pain is well controlled. She is unhappy with not being able to eat, but otherwise professes to be doing well. She has baseline dementia and was confused at times during the interview. She would fixate on the clock and wonder whether it was PM or AM. Constitutional: No fever, No chills, No sweats Respiratory: No cough, No shortness of breath Cardiovascular: No chest pain Abdomen: No pain, No nausea, No vomiting Musculoskeletal: + joint pain Female : No dysuria, No urinary frequency Neurologic: + memory loss Objective Vital Signs Date Time Temp Pulse Resp B/P (MAP) Pulse Ox O2 Delivery O2 Flow Rate FiO2 03/12/18 11:36 36.5 53 18 114/72 (86) 93 Room Air 03/12/18 08:10 Room Air 03/12/18 07:06 36.8 81 18 173/83 (113) 92 167/89 (115) 03/12/18 03:17 36.5 68 18 145/81 (102) 93 Room Air 03/12/18 00:03 37.2 77 16 158/81 (106) 93 Room Air 03/11/18 20:00 Room Air 03/11/18 18:30 36.8 71 18 176/88 Room Air 03/11/18 17:37 36.9 73 20 153/84 94 03/11/18 17:12 81 03/11/18 16:32 73 20 103/64 92 Room Air 03/11/18 15:45 36.9 69 22 133/79 92 Room Air 03/11/18 15:36 71 Physical Exam General Appearance: no apparent distress, + thin Respiratory/Chest: chest non-tender, lungs clear, normal breath sounds Cardiovascular: regular rate, rhythm, no edema, no gallop, no JVD, no murmur Abdomen: normal bowel sounds, non tender, soft Extremities: + pertinent finding (Right leg shorter and externally rotated sensation intact in distal right leg) Assessment and Plan 87 y/o F here after a syncopal event with right hip fracture Right Hip Fracture - s/p repair - Care per ortho Post op hypotension - Required pressors. ? sec to blood loss. - Closely Monitor. Syncope - Likely vagal due to immediate micturition prior to fall -ECG normal, has been on telemetry overnight with no suggestive findings of cardiac cause UTI - G neg bacilli in urine cx - I/V rocephin started Osteoporosis - vitamin D level low at 11. Replace - Drisdol and D3. Further outpatient mx. Hypothyroid - home meds. Lovenox DNR Reviewed: Pt Seen/Exam by Me History seen in PACU was hypotensive post op and needed pressors. Constitutional: denies: fever Respiratory: negative: short of breath Cardiovascular: denies chest pain General Appearance: no apparent distress Respiratory: lungs clear, no respiratory distress Cardiovascular: regular rate, rhythm Neurologic/Psychiatric: alert Skin Characteristics: warm/dry Assessment/Plan Resident Physician Supervision Note: I independently interviewed and examined the patient and verified the maya history and physical, reviewed labs and image studies, discussed the case with the resident Dr. Grant and agree with the findings and care plan.
--- NOTE | 2018-03-12 13:54 | [facility] Operative Report ---
Operative Report Operative Date Mar 12, 2018. Pre-Operative Diagnosis Osteoporotic Hip fracture of Right Hip Post-Operative Diagnosis Osteoporotic Hip fracture of Right Hip Procedure(s) Performed Right Cemented Bipolar Hip Surgeon Dr Andre Manager Utilization Management Surgeon(s) Gail Castro PA-C Estimated Blood Loss 200CC Findings See Dr Andre operative report. Specimens A: Right Femoral Head Complication(s) None Disposition Recovery Room / PACU Indications Osteoporotic fracture of right hip requiring surgical intervention to maximize independence and mobility. Description of Procedure See Dr Andre operative report. I was diagnostic assistant with entire case including hardware handling, limb manipulation, wound closure. I attest to the content of the Intraoperative Record and any orders documented therein. Any exceptions are noted below.
--- NOTE | 2018-03-12 14:22 | DIAGNOSTIC IMAGING REPORT ---
R HIP UNILATERAL 2 VIEWS CLINICAL HISTORY: sp bipolar r hip arthroplasty hip replacement COMPARISON: None. DISCUSSION: Total right hip arthroplasty in position. Expected postoperative soft tissue change. IMPRESSION: Placement of a total right hip arthroplasty. The above report was generated using voice recognition software. It may contain grammatical, syntax or spelling errors. Electronically signed by: Dayton Cha M.D. 03/12/2018 2:21 PM Dictated Date/Time: 03/12/2018 2:19 PM
--- NOTE | 2018-03-12 14:48 | Anesthesiology Progress Note ---
Anesthesia Post Op Note Date & Time Mar 12, 2018 at 14:48 Vital Signs Pain Intensity: 0 Vital Signs Past 12 Hours Date Time Temp Pulse Resp B/P (MAP) Pulse Ox O2 Delivery O2 Flow Rate FiO2 03/12/18 14:25 36.4 72 23 110/60 100 Nasal Cannula 2 03/12/18 14:15 74 15 103/65 100 Nasal Cannula 2 03/12/18 14:05 74 15 103/65 100 Nasal Cannula 2 03/12/18 13:55 73 18 92/57 100 Nasal Cannula 2 03/12/18 13:45 69 20 119/69 100 Nasal Cannula 2 03/12/18 13:35 68 17 119/61 100 Nasal Cannula 2 03/12/18 13:26 37.8 80 18 90/57 99 Nasal Cannula 2 03/12/18 11:36 36.5 53 18 114/72 (86) 93 Room Air 03/12/18 08:10 Room Air 03/12/18 07:06 36.8 81 18 173/83 (113) 92 167/89 (115) 03/12/18 03:17 36.5 68 18 145/81 (102) 93 Room Air Notes Mental Status: alert / awake / arousable, participated in evaluation Pt Amnestic to Procedure: Yes Nausea / Vomiting: adequately controlled Pain: adequately controlled Airway Patency, RR, SpO2: stable & adequate BP & HR: stable & adequate Hydration State: stable & adequate Anesthetic Complications: no major complications apparent
--- NOTE | 2018-03-12 14:58 | Pharmacy Progress Note ---
Enoxaparin Dosing Consult Date of Service: Mar 12, 2018. Pharmacy Dosing Scope Pharmacy is consulted to review the use of enoxaparin in a special risk patient population possibly prone to accumulate drug: lean/bariatric/elderly/dialysis/ renal impairment/extended therapy//pediatric & to initiate/continue/ recommend change in the setting of ordered PROPHYLACTIC or THERAPEUTIC enoxaparin sub-q dosing therapy, order appropriate labs and adjust drug/dose/ frequency. Subjective The patient is a 87 year old female admitted on Mar 11, 2018 at 17:00 for Subcapital Fracture Of Right Hip,Syncope. Patient is to receive PROPHYLACTIC enoxaparin sub-q. Pertinent PMH: Objective Height (Feet): 5 Height (Inches): 6.00 Weight (Kilograms): 96.500 Laboratory Results: Last 24 Hours Test 03/11/18 16:24 03/11/18 20:53 03/12/18 06:23 Activated Partial Thromboplast Time 26.1 SECONDS (21.0-31.0) Blood Urea Nitrogen 12 mg/dl (7-18) 13 mg/dl (7-18) Creatinine 0.91 mg/dl (0.60-1.20) 0.78 mg/dl (0.60-1.20) White Blood Count 11.76 K/uL (4.8-10.8) 8.11 K/uL (4.8-10.8) Red Blood Count 4.13 M/uL (4.2-5.4) 3.51 M/uL (4.2-5.4) Hemoglobin 12.7 g/dL (12.0-16.0) 11.7 g/dL (12.0-16.0) 10.7 g/dL (12.0-16.0) Hematocrit 37.5 % (37-47) 31.8 % (37-47) Mean Corpuscular Volume 90.8 fL (80-100) 90.6 fL (80-100) Mean Corpuscular Hemoglobin 30.8 pg (25-34) 30.5 pg (25-34) Mean Corpuscular Hemoglobin Concent 33.9 g/dl (32-36) 33.6 g/dl (32-36) Platelet Count 249 K/uL (130-400) 182 K/uL (130-400) Mean Platelet Volume 8.9 fL (7.4-10.4) 8.9 fL (7.4-10.4) Neutrophils (%) (Auto) 84.7 % 78.0 % Lymphocytes (%) (Auto) 5.9 % 11.8 % Monocytes (%) (Auto) 7.4 % 9.1 % Eosinophils (%) (Auto) 0.9 % 0.7 % Basophils (%) (Auto) 0.3 % 0.2 % Neutrophils # (Auto) 9.97 K/uL (1.4-6.5) 6.31 K/uL (1.4-6.5) Lymphocytes # (Auto) 0.69 K/uL (1.2-3.4) 0.96 K/uL (1.2-3.4) Monocytes # (Auto) 0.87 K/uL (0.11-0.59) 0.74 K/uL (0.11-0.59) Eosinophils # (Auto) 0.10 K/uL (0-0.5) 0.06 K/uL (0-0.5) Basophils # (Auto) 0.04 K/uL (0-0.2) 0.02 K/uL (0-0.2) Partial Thromboplastin Ratio 1.0 Last 72 Hours Test 03/11/18 16:24 03/12/18 06:23 Alanine Aminotransferase (ALT/SGPT) 33 U/L Aspartate Amino Transf (AST/SGOT) 39 U/L Direct Bilirubin 0.3 mg/dl White Blood Count 11.76 K/uL 8.11 K/uL Red Blood Count 4.13 M/uL 3.51 M/uL Hemoglobin 12.7 g/dL 10.7 g/dL Hematocrit 37.5 % 31.8 % Mean Corpuscular Volume 90.8 fL 90.6 fL Mean Corpuscular Hemoglobin 30.8 pg 30.5 pg Mean Corpuscular Hemoglobin Concent 33.9 g/dl 33.6 g/dl Platelet Count 249 K/uL 182 K/uL Mean Platelet Volume 8.9 fL 8.9 fL Neutrophils (%) (Auto) 84.7 % 78.0 % Lymphocytes (%) (Auto) 5.9 % 11.8 % Monocytes (%) (Auto) 7.4 % 9.1 % Eosinophils (%) (Auto) 0.9 % 0.7 % Basophils (%) (Auto) 0.3 % 0.2 % Neutrophils # (Auto) 9.97 K/uL 6.31 K/uL Lymphocytes # (Auto) 0.69 K/uL 0.96 K/uL Monocytes # (Auto) 0.87 K/uL 0.74 K/uL Eosinophils # (Auto) 0.10 K/uL 0.06 K/uL Basophils # (Auto) 0.04 K/uL 0.02 K/uL Prothromb Time International Ratio 1.0 Total Bilirubin 0.9 mg/dl Assessment & Plan Regarding PROPHYLACTIC Enoxaparin: Continue enoxaparin 30 mg sub-q every 24 hours based on review of the following special population risk factors for drug accumulation: lean/elderly. Conservative dosing chosen due to patient's low weight (43.7kg). Labs: * Consider ordering Peak Anti-factor Xa level to be drawn 4 hours after 4th or 5th dose to better assess drug elimination & review potential for drug accumulation. * Ongoing Labs (P&T Approved): CBC q 2 days x 2 weeks, serum creat q 2 days We will continue to monitor this patient and make adjustments as needed. Thank you.
--- NOTE | 2018-03-12 15:33 | ECHOCARDIOGRAM REPORT ---
*NOTICE TO RECEIVING DEMOCRAT AGENCY This information is strictly Confidential and protected under [place] law. [place] law prohibits you from making any further disclosure of this information unless further disclosure is expressly permitted by the written consent of the person to whom it pertains or is authorized by law. A general authorization for the release of medical or other information is not sufficient for this purpose. Hospital accepts no responsibility if the information is made available to any other person, INCLUDING THE PATIENT. Interpretation Summary * Name: ODELL WOLF Study Date: 03/12/2018 07:02 AM BP: 167/89 mmHg * Patient Location: C.2T\S\S242\S\2 HR: 76 * : 1930 (M/d/yyy) Gender: Female Height: 62 in * Age: 87 yrs Ethnicity: [place] Weight: 120 lb * Ordering Physician: Hang Perry * Referring Physician: Adrianne Gonzales * Performed By: Anastasiia Shaikh RDCS * * Reason For Study: SYNCOPE * BSA: 1.5 m2 * -- Conclusions -- * There is mild asymmetric left ventricular hypertrophy. * Left ventricular systolic function is normal. * Diastolic dysfunction, Grade III, consistent with marked congestive heart failure. * Aortic valve sclerosis mild, without significant aortic valvular stenosis. * Right ventricular systolic pressure is elevated at 30-40mmHg. Procedure Details * A contrast injection of Definity was performed to improve assessment of LV function. * Contrast was injected into an intravenous site in the right arm. * One vial of Definity ultrasound contrast was diluted in normal saline to a total volume of 10 ml. A total of '2' ml of solution was administered during imaging. * Lot # [id number] of Definity utilized for procedure. * Expiration date FEB 28. * The attending nurse who injected the contrast agent was MYRON RADFORD. Left Ventricle * The left ventricle is normal in size. * There is mild asymmetric left ventricular hypertrophy. * Ejection Fraction = 60-65%. * Left ventricular systolic function is normal. * Diastolic dysfunction, Grade III, consistent with marked congestive heart failure. * Mild basal inferior hypokinesis Right Ventricle * The right ventricle is normal in size and function. * The right ventricular systolic function is normal as assessed by tricuspid annular plane systolic excursion (TAPSE) (normal >1.5 cm). Atria * The left atrial size is normal. * Right atrial size is normal. Mitral Valve * The mitral valve anatomy is normal. * There is trace mitral regurgitation. Tricuspid Valve * The tricuspid valve anatomy is normal. * There is trace tricuspid regurgitation. * Right ventricular systolic pressure is elevated at 30-40mmHg. Aortic Valve * Aortic valve sclerosis mild, without significant aortic valvular stenosis. * No hemodynamically significant valvular aortic stenosis. * No aortic regurgitation is present. Pulmonic Valve * The pulmonic valve is not well visualized. Great Vessels * The aortic root is normal size. Pericardium/Pleural * There is no pericardial effusion. MMode 2D Measurements and Calculations IVSd 1.2 cm IVSs 1.4 cm LVIDd 3.2 cm LVIDs 2.2 cm LVPWd 1.5 cm LVPWs 1.4 cm IVS/LVPW 0.82 FS 32.8 % EDV(Teich) 41.8 ml ESV(Teich) 15.6 ml EF(Teich) 62.6 % EDV(cubed) 33.6 ml ESV(cubed) 10.2 ml EF(cubed) 69.7 % % IVS thick 16.0 % % LVPW thick -5.23 % LV mass(C)d 145.1 grams LV mass(C)dI 94.3 grams/m\S\2 LV mass(C)s 94.7 grams LV mass(C)sI 61.6 grams/m\S\2 SV(Teich) 26.2 ml SI(Teich) 17.0 ml/m\S\2 SV(cubed) 23.4 ml SI(cubed) 15.2 ml/m\S\2 LA dimension 3.1 cm LVAd ap4 26.6 cm\S\2 LVLd ap4 7.6 cm EDV(MOD-sp4) 76.5 ml EDV(sp4-el) 79.5 ml LVAs ap4 15.3 cm\S\2 LVLs ap4 6.6 cm ESV(MOD-sp4) 30.7 ml ESV(sp4-el) 30.3 ml EF(MOD-sp4) 59.9 % EF(sp4-el) 61.9 % LVAd ap2 25.4 cm\S\2 LVLd ap2 6.9 cm EDV(MOD-sp2) 76.4 ml EDV(sp2-el) 78.6 ml LVAs ap2 15.0 cm\S\2 LVLs ap2 6.2 cm ESV(MOD-sp2) 29.8 ml ESV(sp2-el) 30.6 ml EF(MOD-sp2) 61.0 % EF(sp2-el) 61.0 % LVLd %diff -9.16 % EDV(MOD-bp) 81.0 ml LVLs %diff -5.10 % ESV(MOD-bp) 30.6 ml EF(MOD-bp) 62.2 % SV(MOD-sp4) 45.8 ml SI(MOD-sp4) 29.8 ml/m\S\2 SV(MOD-sp2) 46.6 ml SI(MOD-sp2) 30.3 ml/m\S\2 SV(MOD-bp) 50.4 ml SI(MOD-bp) 32.8 ml/m\S\2 SV(sp4-el) 49.2 ml SI(sp4-el) 32.0 ml/m\S\2 SV(sp2-el) 48.0 ml SI(sp2-el) 31.2 ml/m\S\2 Doppler Measurements and Calculations MV E max enrique 57.2 cm/sec MV A max enrique 97.5 cm/sec MV E/A 0.59 MV dec time 0.31 sec Ao V2 max 171.0 cm/sec Ao max PG 11.7 mmHg Ao max PG (full) 8.5 mmHg LV V1 max PG 3.2 mmHg LV V1 max 89.2 cm/sec TR max enrique 300.0 cm/sec
--- NOTE | 2018-03-12 16:18 | OPERATIVE REPORT ---
DATE OF OPERATION: 03/12/2018 PREOPERATIVE DIAGNOSIS: Right femoral neck fracture. POSTOPERATIVE DIAGNOSIS: Right femoral neck fracture. PROCEDURE PERFORMED: Right hip bipolar hemiarthroplasty. SURGEON: Bakari Andre MD. ASSURANCE MANAGER: BRENT Avalos. ANESTHESIA: Spinal with sedation. INDICATIONS FOR PROCEDURE: The patient is an 87-year-old female 3 months status post a contralateral hip fracture. She fell yesterday, fracturing her right hip. I spoke with her power of fruit dumper. We talked about the pros and cons and she has elected to proceed with operative intervention. The patient was agreeable as well. She has been admitted and cleared by medicine. PROCEDURE IN DETAIL: Informed consent was obtained. Patient identified. Operative site marked with my initials. A preop surgical time out performed. Preop dose of IV antibiotics was given. She was taken to the operating room, positioned supine on the operating room table after administration of the spinal anesthetic. She was then turned decubitus with the right side up. The Stulberg positioner was utilized. Bony prominences were inspected and padded and an axillary roll was inserted. The right lower extremity was prepped from the ankle to the hip in the usual sterile fashion. DVT prophylaxis with foot pumps intraoperatively and with Lovenox, early mobility, and mechanical devices, postoperatively. A 20 cm incision was made with the hip in flexed position, 1/3 below with 2/3 above the trochanter. Electrocautery was utilized down to subcutaneous tissues and the iliotibial band and gluteal fascia were divided in line with the incision. The Charnley retractor was inserted. The abductors were elevated off of the hip capsule which was then incised and preserved and retracted posteriorly with tagging stitches. The inferior capsule was released. The hip was then placed in the 90/90 position and a provisional femoral neck cut was made. Some posterior comminution along the neck was noted but the medial calcar was intact. The head was removed and sized to a 48. The labrum was preserved. The acetabulum looked normal. Leg was placed in the 90/90 position. The box cutting guide was utilized followed by the lateralizing reamer. She had a deformed proximal femoral geometry with a widened femoral metaphysis and an enlarged overhanging greater trochanter. Broaching began and proceeded up to size 4, at which point there was good fit and fill with rotational stability and the broach could not be impacted any further. Trialing was performed and looked good with the +1.5 neck. The trial components were removed. A cement restrictor was inserted. The canal was prepped with pulse lavage and meticulously dried followed by a retrograde fill with 2 bags of Simplex P cement while in a doughy state using 3rd generation cement technique and pressurization. The stem was inserted with care to avoid varus positioning. Broaching and stem insertion were done at approximately 20-30 degrees of femoral anteversion. Once the cement had hardened, extraneous cement was removed and trialing was again performed and showed good stability with the +1.5 length. There was a negative shuck test throughout and the hip could be adducted maximally and internally rotated 40 degrees prior to any instability. There was no impingement. Betadine lavage and pulse lavage were performed. The final implants with the Shell liner and Head were applied. The hip was reduced. The short external rotators and the joint capsule were then repaired back to the greater trochanter and hip abductor musculature using #1 Ethibond. The gluteal fascia and iliotibial band were closed with running #2 Vicryl and interrupted. The skin was closed in layers with 0 and 2-0 Vicryl, dayan and a soft sterile dressing was applied. Patient was then awakened from anesthesia without difficulty, taken to the recovery room in stable condition. An abduction pillow was applied prior to transferring. Patient tolerated the procedure well. The resected femoral head was sent for specimen. There were no complications. Counts were correct. Blood loss was approximately 200 mL. At the conclusion of the operation, I spoke to her niece and informed her of my findings and postoperative instructions were given. She will be rehabilitated according to the hip fracture hemiarthroplasty protocol. She can weightbear as tolerated and will use Lovenox for DVT prophylaxis. A size 4 standard [place] cemented stem was inserted along with a 10 mm distal centralizer and a 48 mm bipolar head and a 28 mm inner head with a +1.5 neck length. I attest to the content of the Intraoperative Record and any orders documented therein. Any exceptions are noted below. ZHENG
[2018-03-12] MEDS: CEFTRIAXONE SOD INJ 1 GM in DEXTROSE 5% ADD-VANTAGE 50ML 50 ML IV SCH (16:27)
[2018-03-12] MEDS: CEFAZOLIN IV 2,000 MG in SYRINGE 0 ML IV SCH (18:50)
[2018-03-12] MEDS: DOCUSATE SODIUM/SENNA 50/8.6MG TAB PO SCH (20:29)
[2018-03-12] MEDS ORDERED: DOCUSATE SODIUM/SENNA 50/8.6MG TAB PO SCH (21:00)
[2018-03-13] VITALS (13 sets, daily range): BP systolic 103–150; BP diastolic 58–86; PULSE 73–95; TEMP 36.4–37.4; O2SAT 3–97
[2018-03-13] MEDS: CEFAZOLIN IV 2,000 MG in SYRINGE 0 ML IV SCH (04:35)
[2018-03-13] MEDS: LEVOTHYROXINE 75 MCG TAB PO SCH ×3 (05:49→05:52)
[2018-03-13] MEDS ORDERED: CONSULT PHARMACY ONE (06:00)
[2018-03-13 07:17] LABS: BASO % 0.2 %; BASO ABS # 0.02 K/uL (0-0.2); EOS % 1.4 %; EOS ABS # 0.12 K/uL (0-0.5); HEMATOCRIT 27.3 % (37-47); HEMOGLOBIN 9.3 g/dL (12.0-16.0); IG# 0.05 K/uL (0.00-0.02); LYMPH % 10.6 %; LYMPH ABS # 0.89 K/uL (1.2-3.4); MEAN CORPUSCULAR HGB CONC 34.1 g/dl (32-36); MEAN PLATELET VOLUME 9.2 fL (7.4-10.4); MONO % 15.4 %; MONO ABS # 1.29 K/uL (0.11-0.59); NEUT % 71.8 %; NEUT ABS # 6.02 K/uL (1.4-6.5); PLATELET COUNT 127 K/uL (130-400); RED CELL DISTRIBUTION WIDTH SD 49.9 fL (36.4-46.3); WHITE BLOOD COUNT 8.39 K/uL (4.8-10.8)
[2018-03-13] MEDS: PANTOprazole SOD 40 MG TAB PO SCH ×2 (07:59→21:00)
[2018-03-13] MEDS: CHOLECALCIFEROL 1000 INTER.UNIT TAB PO SCH (08:00)
[2018-03-13] MEDS: SERTRALINE HCL 50 MG TAB PO SCH (08:01)
[2018-03-13] MEDS: POLYETHYLENE (MIRALAX) 17 GM PACK PO SCH (08:01)
[2018-03-13] MEDS: ENOXAPARIN 30 MG/0.3 ML SYR SQ SCH (08:02)
[2018-03-13 08:03] LABS: CALCIUM 8.1 mg/dl (8.5-10.1); CREATININE 0.73 mg/dl (0.60-1.20); POTASSIUM 4.1 mmol/L (3.5-5.1)
[2018-03-13] MEDS ORDERED: ERGOCALCIFEROL 50,000 INTER.UNIT CAP PO SCH ×2 (08:30→09:00)
[2018-03-13] MEDS ORDERED: CHOLECALCIFEROL 1000 INTER.UNIT TAB PO SCH (09:00)
--- NOTE | 2018-03-13 09:17 | Orthopedic Progress Note ---
Orthopedic Progress Note Date of Service Mar 13, 2018. Subjective Post OP Day: 1 Reports: feeling well, complaints (of feeling weak), pain controlled w PO medications, Denies: chest pain, SOB, nausea / vomiting, light headedness, calf pain Objective calves soft nontender, N/V intact, hip located, capillary refill less than 2 sec., dressing C/D/I, incision C/D/I, A&O x3, toes mobile, CMS intact has pain with passive hip motion. Date Time Temp Pulse Resp B/P (MAP) Pulse Ox O2 Delivery O2 Flow Rate FiO2 03/13/18 08:56 Room Air 03/13/18 07:02 37.4 80 18 150/78 (102) 94 Room Air 03/13/18 03:45 36.9 76 20 126/84 96 2.0 03/13/18 03:17 37.0 95 18 145/70 (95) 96 2.0 03/13/18 02:53 36.7 73 20 135/77 92 2.0 03/13/18 02:02 37.0 87 20 140/86 96 2.0 03/13/18 01:35 36.7 76 20 113/60 97 2.0 03/13/18 00:50 37.2 89 20 120/69 2.0 03/13/18 00:00 Nasal Cannula 2.0 03/12/18 23:59 80 18 102/68 (79) 98 Room Air 03/12/18 23:52 37.3 78 18 108/72 2.0 03/12/18 22:52 36.7 78 19 119/64 96 2.0 03/12/18 22:22 36.8 94 20 103/59 97 2.0 03/12/18 20:00 Nasal Cannula 2.0 03/12/18 19:11 36.4 82 18 107/66 (80) 94 03/12/18 16:26 77 101/63 (76) 97 Nasal Cannula 2.0 03/12/18 16:11 75 97/61 (73) 97 Nasal Cannula 2.0 03/12/18 16:00 Room Air 03/12/18 15:56 74 103/65 (78) 97 Nasal Cannula 2.0 03/12/18 15:41 77 100/65 (77) 96 Nasal Cannula 2.0 03/12/18 15:32 36.5 91 18 108/69 (82) 96 03/12/18 15:27 81 94/59 (71) 95 Nasal Cannula 2.0 03/12/18 15:00 36.4 72 18 129/71 (90) 98 Nasal Cannula 2.0 03/12/18 14:25 36.4 72 23 110/60 100 Nasal Cannula 2 03/12/18 14:15 74 15 103/65 100 Nasal Cannula 2 03/12/18 14:05 74 15 103/65 100 Nasal Cannula 2 03/12/18 13:55 73 18 92/57 100 Nasal Cannula 2 03/12/18 13:45 69 20 119/69 100 Nasal Cannula 2 03/12/18 13:35 68 17 119/61 100 Nasal Cannula 2 03/12/18 13:26 37.8 80 18 90/57 99 Nasal Cannula 2 03/12/18 11:36 36.5 53 18 114/72 (86) 93 Room Air Laboratory Results 24 Hours: Test 03/12/18 20:35 03/13/18 06:35 Hemoglobin 7.7 g/dL 9.3 g/dL White Blood Count 8.39 K/uL Red Blood Count 3.21 M/uL Hematocrit 27.3 % Mean Corpuscular Volume 85.0 fL Mean Corpuscular Hemoglobin 29.0 pg Mean Corpuscular Hemoglobin Concent 34.1 g/dl Platelet Count 127 K/uL Mean Platelet Volume 9.2 fL Neutrophils (%) (Auto) 71.8 % Lymphocytes (%) (Auto) 10.6 % Monocytes (%) (Auto) 15.4 % Eosinophils (%) (Auto) 1.4 % Basophils (%) (Auto) 0.2 % Neutrophils # (Auto) 6.02 K/uL Lymphocytes # (Auto) 0.89 K/uL Monocytes # (Auto) 1.29 K/uL Eosinophils # (Auto) 0.12 K/uL Basophils # (Auto) 0.02 K/uL Assessment & Plan Assessment: post op day 1 Right hip bipolar hemiarthroplasty Plan: Pt will move from telemetry to ortho floor today dressings dry-will change tomorrow initiate PT/OT D/C plans uncertain at this time-will go to [facility], but timeline uncertain continue Lovenox/TEDS/SCDs Discharge Planning Discharge Planning: uncertain Pain Management: PO Tylenol DVT Prophylaxis: TEDs, SCDs, Lovenox Therapy: Physical Therapy
--- NOTE | 2018-03-13 10:46 | Clinical Documentation Query ---
CLINICAL DOCUMENTATION QUERY 87 year old female who presents to the Emergency Room with complaints of constant right hip pain after a falling. In your clinical opinion is this patient being managed for: ( ) Acute blood loss anemia in setting of femoral fracture ( ) Not Agree ( ) Other explanation of clinical findings (No explanation is considered a No Response) ( ) Unable to determine ( x ) Need to Discuss (Phone CDS or qliq) (No discussion is considered a No Response) - discussed with Donnell The medical record reflects the following clinical findings, treatment, and risk factors. Clinical Indicators: EBL 200 ml's, Hgb 7.7 Treatment: 2 units of PRB's Risk Factors: Age, long bone fx, surgery Please clarify and document your clinical opinion in the progress notes and discharge summary. Terms such as "probable", "suspected", "likely", "questionable", "possible", or "still to be ruled out" are acceptable. IF IN AGREEMENT, YOU MUST DOCUMENT ABOVE DIAGNOSTIC STATEMENT IN DAILY PROGRESS NOTES AND DISCHARGE SUMMARY. This document is not part of the patient's record. Thank You, Donnell Fregoso RN [phone] & via qlicCONNECT
[2018-03-13] MEDS: SODIUM CHLOR 0.45% + 20MEQ KCL 1,000 ML IV SCH (14:19)
--- NOTE | 2018-03-13 14:51 | PROGRESS NOTE ---
DATE: 03/13/2018 SUBJECTIVE: She has been transferred to the regular med/surg floor. She appears oriented but slightly confused at times. OBJECTIVE: VITAL SIGNS: Afebrile. Vital signs are stable. Urine output is marginal. Her hematocrit today is 27, platelet count is 127. Dressing is clean and dry. Her pain is well controlled. She has 5/5 ankle and toe plantar flexion and dorsiflexion. 1+ posterior tibial pulse. Normal sensation. Abduction pillow in place. X-rays of the right hip show good positioning of the implants, cement technique and no evidence of complication fracture or dislocation. PLAN: We talked about total hip precautions. She will continue the abduction pillow. Medical management. DVT prophylaxis with mechanical devices and Lovenox. Postop antibiotics. PT and OT. She can weightbear as tolerated.
[2018-03-13] MEDS: CEFTRIAXONE SOD INJ 1 GM in DEXTROSE 5% ADD-VANTAGE 50ML 50 ML IV SCH (15:40)
--- NOTE | 2018-03-13 19:01 | Family Medicine Progress Note ---
Progress Note Date of Service Mar 13, 2018. Subjective Voiding: frederick catheter in place Patient is resting comfortably this morning after her surgery. She has no complaints at this time and reports a good appetite and a good night's sleep. She says she is not in pain at this time. Medications Current Inpatient Medications Medications (Trade) Dose Ordered Sig/Viky Route Start Time Stop Time Status Last Admin Dose Admin Naloxone HCl (Narcan Inj) 0.1 mg PRN PRN IV 03/11/18 17:00 04/10/18 16:59 Polyethylene (Miralax Powder Packet) 17 gm DAILY PRN PO 03/11/18 17:00 04/10/18 16:59 Magnesium Hydroxide (Milk Of Magnesia Susp) 30 ml DAILY PRN PO 03/11/18 17:00 04/10/18 16:59 Levothyroxine Sodium (Synthroid Tab) 75 mcg DAILYBB PO 03/12/18 06:00 04/11/18 06:59 03/12/18 05:54 75 MCG Magnesium Hydroxide (Milk Of Magnesia Susp) 30 ml DAILY PRN PO 03/11/18 17:00 04/10/18 16:59 Ondansetron HCl (Zofran Tab) 4 mg Q8 PRN PO 03/11/18 17:00 04/10/18 16:59 Pantoprazole Sodium (Protonix Tab) 40 mg BID PO 03/11/18 21:00 04/10/18 20:59 03/13/18 07:59 40 MG Senna/Docusate Sodium (Senokot S Tab) 2 tab HS PO 03/11/18 21:00 04/10/18 20:59 03/12/18 20:29 2 TAB Sertraline HCl (Zoloft Tab) 75 mg DAILY PO 03/12/18 09:00 04/11/18 08:59 03/13/18 08:01 75 MG Sodium Biphosphate/ Sodium Phosphate (Fleet Enema) 132 ml DAILY PRN LA 03/11/18 17:00 04/10/18 16:59 Polyethylene (Miralax Powder Packet) 17 gm DAILY PO 03/12/18 09:00 04/11/18 08:59 03/13/18 08:01 17 GM Al Hydrox/Mg Hydrox/Simethicone (Maalox Max Susp) 15 ml Q4H PRN PO 03/11/18 17:00 04/10/18 16:59 Magnesium Hydroxide (Milk Of Magnesia Susp) 30 ml Q12H PRN PO 03/11/18 17:00 04/10/18 16:59 Potassium Chloride/Sodium Chloride 1,000 ml @ 75 mls/hr [id number] IV 03/11/18 21:00 04/10/18 20:44 03/13/18 14:19 75 MLS/HR Ergocalciferol (Vitamin D Cap) 50,000 interunit We@0900 PO 03/13/18 09:00 04/12/18 08:59 03/13/18 08:01 50,000 INTERUNIT Cholecalciferol (Vitamin D Tab) 4,000 inter.unit QAM PO 03/12/18 09:00 04/11/18 08:59 03/13/18 08:00 4,000 INTER.UNIT Ondansetron HCl (Zofran Inj) 4 mg Q6H PRN IV 03/12/18 13:30 04/11/18 13:29 Acetaminophen (Tylenol Tab) 650 mg Q6H PRN PO 03/12/18 13:30 04/11/18 13:29 Oxycodone HCl (Roxicodone Immediate Rel Tab) 5 mg Q4H PRN PO 03/12/18 13:30 03/26/18 13:29 03/13/18 11:37 5 MG Morphine Sulfate (MoRPHine SULFATE INJ) 2 mg Q2H PRN IV 03/12/18 13:30 03/26/18 13:29 Naloxone HCl (Narcan Inj) 0.4 mg Q1M PRN IV 03/12/18 13:30 04/11/18 13:29 Polyethylene (Miralax Powder Packet) 17 gm Q6 PO 03/14/18 06:00 04/13/18 05:59 Bisacodyl (Dulcolax Supp) 10 mg DAILY PRN LA 03/12/18 13:30 04/11/18 13:29 Tramadol HCl (Ultram Tab) 50 mg Q4H PRN PO 03/12/18 13:30 04/11/18 13:29 Enoxaparin Sodium (Lovenox Inj) 30 mg Q24H SQ 03/13/18 09:00 04/12/18 08:59 03/13/18 08:02 30 MG Enoxaparin Sodium (Consult) 1 ea UD PRN N/A 03/12/18 14:45 04/11/18 14:44 Ceftriaxone Sodium 1 gm/ Dextrose 50 ml @ 100 mls/hr Q24H IV 03/12/18 15:30 03/17/18 15:14 03/13/18 15:40 100 MLS/HR Objective Physical Exam General Appearance: WD/WN, no apparent distress Respiratory/Chest: chest non-tender, lungs clear, normal breath sounds, no respiratory distress, no accessory muscle use Cardiovascular: regular rate, rhythm, no gallop, no JVD, no murmur Abdomen: normal bowel sounds, non tender, soft Extremities: + pertinent finding (Right leg stabilized and bandaged) Skin: normal color, warm/dry Assessment and Plan 87 y/o F here after a syncopal event with right hip fracture Acute blood loss anemia in the setting of hip surgery - s/p 2 units of PRBC transfusion. h/h stable since then. Right Hip Fracture Repair -Patient went for surgery yesterday to repair fractured hip -Hemoglobin of 7.7 last night, was transfused 2 unit of PRBC Hemoglobin 9.3 today -Per ortho, wound looks clean and dry and she is to continue on total hip precautions. Post op hypotension - Required pressors. ? sec to blood loss. - BP stable since then Syncope - Likely vagal due to immediate micturition prior to fall -ECG normal, has been on telemetry overnight with no suggestive findings of cardiac cause UTI - G neg bacilli in urine cx - I/V rocephin started Osteoporosis - vitamin D level low at 11. Replace - Drisdol and D3. Further outpatient mx. Hypothyroid - home meds. DVT PPx -Lovenox and mechanical prophylaxis. Disposition: -Receiving PT/OT -Transferred from Telemetry to Med/Surg (No events on telemetry.) -Returning to [facility] when ready and PT/OT signed off Resident Tracking Resident Involvement: Resident Care Provided Care Provided: Adult Hospital Medicine Reviewed: Pt Seen/Exam by Me History no concerns. Constitutional: denies: fever Respiratory: negative: short of breath Cardiovascular: denies chest pain General Appearance: no apparent distress Respiratory: lungs clear, no respiratory distress Cardiovascular: regular rate, rhythm Neurologic/Psychiatric: alert, oriented x 3 Skin Characteristics: warm/dry Assessment/Plan Resident Physician Supervision Note: I independently interviewed and examined the patient and verified the maya history and physical, reviewed labs and image studies, discussed the case with the resident Dr. Grant and agree with the findings and care plan.
[2018-03-13] MEDS: DOCUSATE SODIUM/SENNA 50/8.6MG TAB PO SCH (21:00)
[2018-03-14] VITALS (18 sets, daily range): BP systolic 106–159; BP diastolic 65–83; PULSE 74–86; TEMP 36.3–37.5; O2SAT 88–98
[2018-03-14] MEDS: SODIUM CHLOR 0.45% + 20MEQ KCL 1,000 ML IV SCH (02:52)
[2018-03-14] MEDS: LEVOTHYROXINE 75 MCG TAB PO SCH (06:00)
[2018-03-14] MEDS: POLYETHYLENE (MIRALAX) 17 GM PACK PO SCH ×4 (06:00→23:21)
[2018-03-14] MEDS ORDERED: NURSING VERBAL MED ORDER ONE ×2 (06:30→14:00)
[2018-03-14 07:53] LABS: HEMATOCRIT 20.1 % (37-47); HEMOGLOBIN 6.9 g/dL (12.0-16.0); MEAN CELL VOLUME 85.5 fL (80-100); MEAN CORPUSCULAR HEMOGLOBIN 29.4 pg (25-34); MEAN CORPUSCULAR HGB CONC 34.3 g/dl (32-36); PLATELET COUNT 125 K/uL (130-400); RED CELL DISTRIBUTION WIDTH CV 16.3 % (11.5-14.5); RED CELL DISTRIBUTION WIDTH SD 50.3 fL (36.4-46.3); WHITE BLOOD COUNT 9.59 K/uL (4.8-10.8)
[2018-03-14 08:06] LABS: CREATININE 0.65 mg/dl (0.60-1.20)
[2018-03-14 08:13] LABS: BASO % 0.1 %; BASO ABS # 0.01 K/uL (0-0.2); EOS % 0.7 %; EOS ABS # 0.07 K/uL (0-0.5); IG# 0.04 K/uL (0.00-0.02); LYMPH % 10.8 %; LYMPH ABS # 1.04 K/uL (1.2-3.4); MONO % 16.5 %; MONO ABS # 1.58 K/uL (0.11-0.59); NEUT % 71.5 %; NEUT ABS # 6.85 K/uL (1.4-6.5)
--- NOTE | 2018-03-14 08:45 | Orthopedic Progress Note ---
Orthopedic Progress Note Date of Service Mar 14, 2018. Subjective Post OP Day: 2 Additional Notes: Patient very lethargic this am. Resting comfortably in bed. Nurse states her hgb dropped to 6.9. Medicine was paged. Nurse states patient not drinking alot of fluids. Little output. IV running. Per nurse eating ok. Stood yesterday in therapy with assist x 3. Had visual signs of pain but patient refusing to take pain medication. Nurse was able to give her only one pain medication since the surgery. Objective calves soft nontender, N/V intact, hip located, capillary refill less than 2 sec., incision C/D/I, toes mobile Patient lethargic but responding to commands. Teds and SCDs on. Abductor pillow in place. Dressing with minimal dry blood. No hematoma seen to R LE Date Time Temp Pulse Resp B/P (MAP) Pulse Ox O2 Delivery O2 Flow Rate FiO2 03/14/18 08:15 95 Room Air 03/14/18 07:45 36.7 82 24 128/80 (96) 95 Room Air 82 03/14/18 07:02 37.0 82 18 132/82 (99) 96 Room Air 03/13/18 23:58 Room Air 03/13/18 23:18 37.4 82 14 103/58 (73) 96 Room Air 03/13/18 15:36 36.5 74 16 107/69 (82) 94 Room Air 03/13/18 15:30 3 Room Air 03/13/18 11:53 75 91 03/13/18 11:02 36.4 77 16 150/71 (97) 96 Room Air 03/13/18 11:00 96 Room Air 03/13/18 10:42 37.4 80 18 94 2.0 03/13/18 08:56 Room Air Laboratory Results 24 Hours: Test 03/14/18 07:10 White Blood Count 9.59 K/uL Red Blood Count 2.35 M/uL Hemoglobin 6.9 g/dL Hematocrit 20.1 % Mean Corpuscular Volume 85.5 fL Mean Corpuscular Hemoglobin 29.4 pg Mean Corpuscular Hemoglobin Concent 34.3 g/dl Platelet Count 125 K/uL Mean Platelet Volume 9.0 fL Neutrophils (%) (Auto) 71.5 % Lymphocytes (%) (Auto) 10.8 % Monocytes (%) (Auto) 16.5 % Eosinophils (%) (Auto) 0.7 % Basophils (%) (Auto) 0.1 % Neutrophils # (Auto) 6.85 K/uL Lymphocytes # (Auto) 1.04 K/uL Monocytes # (Auto) 1.58 K/uL Eosinophils # (Auto) 0.07 K/uL Basophils # (Auto) 0.01 K/uL Assessment & Plan Assessment: post op day 2 Right hip bipolar hemiarthroplasty Acute blood loss anemia Plan: Dressing changed this AM. Dr Andre aware of low Hgb and ordered transfusion. Encouraged fluids. Medicine to continue to follow. Nurse and I discussed with patient taking at least tylenol for pain control and she was willing to take a pain medication this am. Continue Ice. Patient has bed available at [facility], D/C today though uncertain Continue Lovenox/TEDS/SCDs Continue Abductor Pillow/SHP Continue PT/OT Discharge Planning Discharge Planning: [facility] facility Pain Management: PO Tylenol, Oxy IR DVT Prophylaxis: TEDs, SCDs, Lovenox Therapy: Physical Therapy, Occupational Therapy
[2018-03-14] MEDS: ENOXAPARIN 30 MG/0.3 ML SYR SQ SCH (09:00)
[2018-03-14] MEDS: PANTOprazole SOD 40 MG TAB PO SCH ×2 (09:00→21:26)
[2018-03-14] MEDS: CHOLECALCIFEROL 1000 INTER.UNIT TAB PO SCH (09:00)
[2018-03-14] MEDS: SERTRALINE HCL 50 MG TAB PO SCH (09:00)
[2018-03-14] MEDS ORDERED: ACETAMINOPHEN IV 650 MG in EMPTY BAG 0 ML IV PRN (12:45)
--- NOTE | 2018-03-14 13:13 | DIAGNOSTIC IMAGING REPORT ---
CHEST ONE VIEW PORTABLE CLINICAL HISTORY: Shortness of breath COMPARISON STUDY: 03/11/2018 FINDINGS: The cardiac and mediastinal contours are normal. There is no evidence of focal pulmonary consolidation. There is no evidence of failure. No pleural effusions are visualized.[ IMPRESSION: No active disease in the chest. Electronically signed by: Chong Reis M.D. 03/14/2018 1:11 PM Dictated Date/Time: 03/14/2018 1:11 PM
[2018-03-14] MEDS ORDERED: SODIUM CHLOR 0.45% + 20MEQ KCL 1,000 ML IV SCH (14:30)
[2018-03-14] MEDS: CEFTRIAXONE SOD INJ 1 GM in DEXTROSE 5% ADD-VANTAGE 50ML 50 ML IV SCH (15:46)
--- NOTE | 2018-03-14 16:35 | Family Medicine Progress Note ---
Progress Note Date of Service Mar 14, 2018. Subjective Pt evaluation today including: conversation w/ patient, physical exam, lab review Pain: Patient complains of no pain, but when she moves she looks agonized PO Intake: Very little today, too lethargic to eat Nela Brewster is an 87 year old woman here status post hip fracture repair day 2. Patient had a hemoglobin of 7.7 night before last and was transfused 2 units of PRBC's. Patient continues to receive IV 1/2 normal saline at 100ml/hr. She has produced only about 250 ml this from her frederick catheter. Saw patient this morning in bed, she was extremely lethargic and would not open her eyes for more than a few seconds. She told me she was hungry but too tired to eat. Patient does not complain of any pain, but when she tries to move she will yelp and show signs of agony. Constitutional: + weakness, + fatigue, No fever Respiratory: + cough, No wheezing, No shortness of breath Cardiovascular: No chest pain, No orthopnea Abdomen: No pain, No nausea, No vomiting Heme: No abnormal bleeding/bruising Medications Current Inpatient Medications Medications (Trade) Dose Ordered Sig/Viky Route Start Time Stop Time Status Last Admin Dose Admin Naloxone HCl (Narcan Inj) 0.1 mg PRN PRN IV 03/11/18 17:00 04/10/18 16:59 Polyethylene (Miralax Powder Packet) 17 gm DAILY PRN PO 03/11/18 17:00 04/10/18 16:59 Levothyroxine Sodium (Synthroid Tab) 75 mcg DAILYBB PO 03/12/18 06:00 04/11/18 06:59 03/12/18 05:54 75 MCG Magnesium Hydroxide (Milk Of Magnesia Susp) 30 ml DAILY PRN PO 03/11/18 17:00 04/10/18 16:59 Ondansetron HCl (Zofran Tab) 4 mg Q8 PRN PO 03/11/18 17:00 04/10/18 16:59 Pantoprazole Sodium (Protonix Tab) 40 mg BID PO 03/11/18 21:00 04/10/18 20:59 03/13/18 07:59 40 MG Senna/Docusate Sodium (Senokot S Tab) 2 tab HS PO 03/11/18 21:00 04/10/18 20:59 03/12/18 20:29 2 TAB Sertraline HCl (Zoloft Tab) 75 mg DAILY PO 03/12/18 09:00 04/11/18 08:59 03/13/18 08:01 75 MG Sodium Biphosphate/ Sodium Phosphate (Fleet Enema) 132 ml DAILY PRN CO 03/11/18 17:00 04/10/18 16:59 Polyethylene (Miralax Powder Packet) 17 gm DAILY PO 03/12/18 09:00 04/11/18 08:59 Future Hold 03/13/18 08:01 17 GM Al Hydrox/Mg Hydrox/Simethicone (Maalox Max Susp) 15 ml Q4H PRN PO 03/11/18 17:00 04/10/18 16:59 Magnesium Hydroxide (Milk Of Magnesia Susp) 30 ml Q12H PRN PO 03/11/18 17:00 04/10/18 16:59 Ergocalciferol (Vitamin D Cap) 50,000 interunit We@0900 PO 03/13/18 09:00 04/12/18 08:59 03/13/18 08:01 50,000 INTERUNIT Cholecalciferol (Vitamin D Tab) 4,000 inter.unit QAM PO 03/12/18 09:00 04/11/18 08:59 03/13/18 08:00 4,000 INTER.UNIT Ondansetron HCl (Zofran Inj) 4 mg Q6H PRN IV 03/12/18 13:30 04/11/18 13:29 Acetaminophen (Tylenol Tab) 650 mg Q6H PRN PO 03/12/18 13:30 04/11/18 13:29 Oxycodone HCl (Roxicodone Immediate Rel Tab) 5 mg Q4H PRN PO 03/12/18 13:30 03/26/18 13:29 03/13/18 11:37 5 MG Morphine Sulfate (MoRPHine SULFATE INJ) 2 mg Q2H PRN IV 03/12/18 13:30 03/26/18 13:29 Naloxone HCl (Narcan Inj) 0.4 mg Q1M PRN IV 03/12/18 13:30 04/11/18 13:29 Polyethylene (Miralax Powder Packet) 17 gm Q6 PO 03/14/18 06:00 04/13/18 05:59 Bisacodyl (Dulcolax Supp) 10 mg DAILY PRN CO 03/12/18 13:30 04/11/18 13:29 Tramadol HCl (Ultram Tab) 50 mg Q4H PRN PO 03/12/18 13:30 04/11/18 13:29 Enoxaparin Sodium (Lovenox Inj) 30 mg Q24H SQ 03/13/18 09:00 04/12/18 08:59 03/13/18 08:02 30 MG Enoxaparin Sodium (Consult) 1 ea UD PRN N/A 03/12/18 14:45 04/11/18 14:44 Ceftriaxone Sodium 1 gm/ Dextrose 50 ml @ 100 mls/hr Q24H IV 03/12/18 15:30 03/17/18 15:14 03/13/18 15:40 100 MLS/HR Objective Vital Signs Date Time Temp Pulse Resp B/P (MAP) Pulse Ox O2 Delivery O2 Flow Rate FiO2 03/14/18 15:30 Room Air 03/14/18 15:29 96 03/14/18 15:25 37.2 74 20 146/83 88 03/14/18 14:20 36.7 78 20 119/74 97 03/14/18 13:50 36.7 77 22 132/80 97 03/14/18 13:20 36.6 82 20 148/68 98 03/14/18 13:05 36.3 85 22 159/81 95 03/14/18 13:05 36.3 85 22 159/81 95 03/14/18 12:50 36.7 81 16 106/65 96 03/14/18 12:15 36.6 75 22 131/71 95 03/14/18 11:15 36.7 82 22 153/79 96 03/14/18 10:45 36.7 86 18 117/72 96 03/14/18 10:15 37.1 81 20 129/68 94 03/14/18 10:00 36.6 82 22 128/71 94 03/14/18 09:41 36.7 76 18 123/70 03/14/18 08:15 95 Room Air 03/14/18 08:10 Room Air 03/14/18 07:45 36.7 82 24 128/80 (96) 95 Room Air 82 03/14/18 07:02 37.0 82 18 132/82 (99) 96 Room Air 03/13/18 23:58 Room Air 03/13/18 23:18 37.4 82 14 103/58 (73) 96 Room Air Physical Exam General Appearance: + thin Respiratory/Chest: chest non-tender, lungs clear, normal breath sounds, no respiratory distress, no accessory muscle use Cardiovascular: regular rate, rhythm, no edema, no gallop Abdomen: normal bowel sounds, non tender, soft, no organomegaly, no pulsatile mass Extremities: no pedal edema, no calf tenderness, + pertinent finding (Surgical wound sites clear of bruising/hematoma) Laboratory Results 03/14/18 07:10 Red Blood Count 2.35, Mean Corpuscular Volume 85.5, Mean Corpuscular Hemoglobin 29.4, Mean Corpuscular Hemoglobin Concent 34.3, Mean Platelet Volume 9.0, Neutrophils (%) (Auto) 71.5, Lymphocytes (%) (Auto) 10.8, Monocytes (%) (Auto) 16.5, Eosinophils (%) (Auto) 0.7, Basophils (%) (Auto) 0.1, Neutrophils # (Auto ) 6.85, Lymphocytes # (Auto) 1.04, Monocytes # (Auto) 1.58, Eosinophils # (Auto ) 0.07, Basophils # (Auto) 0.01 03/14/18 07:10 Test 03/14/18 07:10 White Blood Count 9.59 K/uL (4.8-10.8) Red Blood Count 2.35 M/uL (4.2-5.4) Hemoglobin 6.9 g/dL (12.0-16.0) Hematocrit 20.1 % (37-47) Mean Corpuscular Volume 85.5 fL (80-100) Mean Corpuscular Hemoglobin 29.4 pg (25-34) Mean Corpuscular Hemoglobin Concent 34.3 g/dl (32-36) Platelet Count 125 K/uL (130-400) Mean Platelet Volume 9.0 fL (7.4-10.4) Neutrophils (%) (Auto) 71.5 % Lymphocytes (%) (Auto) 10.8 % Monocytes (%) (Auto) 16.5 % Eosinophils (%) (Auto) 0.7 % Basophils (%) (Auto) 0.1 % Neutrophils # (Auto) 6.85 K/uL (1.4-6.5) Lymphocytes # (Auto) 1.04 K/uL (1.2-3.4) Monocytes # (Auto) 1.58 K/uL (0.11-0.59) Eosinophils # (Auto) 0.07 K/uL (0-0.5) Basophils # (Auto) 0.01 K/uL (0-0.2) RDW Standard Deviation 50.3 fL (36.4-46.3) RDW Coefficient of Variation 16.3 % (11.5-14.5) Immature Granulocyte % (Auto) 0.4 % Immature Granulocyte # (Auto) 0.04 K/uL (0.00-0.02) Echinocytes 1+ Est Creatinine Clear Calc Drug Dose 40.7 ml/min Estimated GFR () 91.9 Estimated GFR (Non- 79.3 Assessment and Plan 87 y/o F here after a syncopal event with right hip fracture Mental status change - likely lethargy secondary to anemia. Monitored closely through the day. Resolved by evening. Decreased urine output - IVF, PRBC transfusion. Improved by evening shift. Acute blood loss anemia in the setting of hip surgery - s/p 2 more units of PRBC transfusion (total 4). h/h stable since then. Right Hip Fracture Repair - day 2 -Weight bearing recieved PT yesterday Syncope - Likely vagal due to immediate micturition prior to fall -ECG normal, has been on telemetry overnight with no suggestive findings of cardiac cause UTI - Almost garcia sensitive Klebsiella - I/V rocephin Osteoporosis - vitamin D level low at 11. Replace - Drisdol and D3. Further outpatient mx. Hypothyroid - home meds. FEN -Receiving 1/2 normal saline with 20 mEq Potassium 1L at 100 mL/hr -Too tired to eat today DVT PPx -Lovenox and mechanical prophylaxis. Disposition: -Receiving PT/OT -Transferred from Telemetry to Med/Surg (No events on telemetry.) -Returning to [facility] when ready and PT/OT signed off . Resident Tracking Resident Involvement: Resident Care Provided Care Provided: Adult Hospital Medicine Reviewed: Pt Seen/Exam by Me History had been lethargic through the day but responsive. visited multiple times. by evening - alert and appropriately responsive. Constitutional: denies: fever Respiratory: negative: short of breath Cardiovascular: denies chest pain General Appearance: no apparent distress Respiratory: lungs clear, no respiratory distress Cardiovascular: regular rate, rhythm Neurologic/Psychiatric: other (easily arousable. oriented to place and person.) Skin Characteristics: warm/dry Assessment/Plan Resident Physician Supervision Note: I independently interviewed and examined the patient and verified the maya history and physical, reviewed labs and image studies, discussed the case with the resident Dr. Grant and agree with the findings and care plan. Acute mental status change -- Lethargy Acute blood loss anemia Decreased urine output -- See management as above. IVF, PRBC, closely monitored urine output and for other etiology of MS change. spent 40 minutes of critical care time.
--- NOTE | 2018-03-14 16:44 | Consultant Recommendations ---
Patient Consumer Marketer Recommendations Date of Service Mar 14, 2018. Patient Consumer Marketer Recommendations WBAT RLE with assistance of walker Abduction pillow between knees when in bed Standard pillow between knees when sitting in a chair. Change dressings to right hip daily and PRN. Keep incision covered. Beginning 03/16/18, if incision clean and dry, okay to shower, pat incision dry. Redress after bathing. Posterior hip precautions at all times right hip. PT/OT - allowed for ROM, strengthening exercises as tolerated. Call [phone] with any questions, drainage from incision, fever, etc. Follow up with Dr. Andre at 11:45 a.m. on 03/25/18
[2018-03-14 16:50] LABS: HEMATOCRIT 27.3 % (37-47); HEMOGLOBIN 9.6 g/dL (12.0-16.0)
--- NOTE | 2018-03-14 19:16 | PROGRESS NOTE ---
DATE: 03/14/2018 She is resting in bed. She is arousable and responds to questions and follows commands, but is tired. She can flex and extend her ankle and toes. Her leg is not notably swollen. She does not have a hematoma. Her thigh is not tense compared to the other side and with palpation. She did get 2 units of blood today because her hemoglobin was down to 7 despite getting a couple units 2 days ago. It does not look like she was able to do any PT. Her abduction pillow was in place. Urine output was 525 mL. She is afebrile. Her vital signs are stable. She is not tachycardic. Plan will be to continue to monitor her H and H. I will speak with medicine. We will see how she responds to the blood. I think we probably ought to hold Lovenox for DVT prophylaxis for now and continue with PT, OT if she tolerates it and total hip precautions.
[2018-03-14 20:07] LABS: HEMATOCRIT 26.8 % (37-47); HEMOGLOBIN 9.3 g/dL (12.0-16.0)
--- NOTE | 2018-03-14 20:15 | DIAGNOSTIC IMAGING REPORT ---
SINGLE VIEW CHEST CLINICAL HISTORY: Productive cough. FINDINGS: An AP, portable, supine chest radiograph is compared to study performed earlier the same day 03/14/2018. The examination is degraded by portable technique and patient rotation. The heart is top normal for projection and there is atherosclerotic calcification of the thoracic aorta. Chronic interstitial thickening is similar to previous. No airspace consolidation or large pleural effusion is identified. No pneumothorax is seen. The skeletal structures are osteopenic. The bony thorax is grossly intact. IMPRESSION: No acute cardiopulmonary abnormality and no significant change from today's earlier examination. Electronically signed by: Charles Tabares M.D. 03/14/2018 8:14 PM Dictated Date/Time: 03/14/2018 8:12 PM
[2018-03-14] MEDS: DOCUSATE SODIUM/SENNA 50/8.6MG TAB PO SCH (21:26)
[2018-03-15 02:10] LABS: HEMATOCRIT 25.4 % (37-47); HEMOGLOBIN 8.9 g/dL (12.0-16.0)
[2018-03-15] MEDS: POLYETHYLENE (MIRALAX) 17 GM PACK PO SCH ×3 (06:00→17:02)
[2018-03-15] MEDS: LEVOTHYROXINE 75 MCG TAB PO SCH (06:00)
[2018-03-15 07:51] VITALS: BP 154/77; PULSE 75; TEMP 37.4; O2SAT 98
[2018-03-15 08:01] LABS: BASO % 0.4 %; BASO ABS # 0.03 K/uL (0-0.2); EOS % 1.5 %; EOS ABS # 0.13 K/uL (0-0.5); HEMATOCRIT 26.1 % (37-47); HEMOGLOBIN 9.1 g/dL (12.0-16.0); IG# 0.04 K/uL (0.00-0.02); LYMPH ABS # 0.94 K/uL (1.2-3.4); MEAN CELL VOLUME 85.6 fL (80-100); MEAN CORPUSCULAR HEMOGLOBIN 29.8 pg (25-34); MEAN CORPUSCULAR HGB CONC 34.9 g/dl (32-36); MEAN PLATELET VOLUME 8.7 fL (7.4-10.4); MONO % 13.5 %; MONO ABS # 1.15 K/uL (0.11-0.59); NEUT % 73.1 %; NEUT ABS # 6.23 K/uL (1.4-6.5); PLATELET COUNT 144 K/uL (130-400); RED CELL DISTRIBUTION WIDTH CV 15.2 % (11.5-14.5); RED CELL DISTRIBUTION WIDTH SD 47.8 fL (36.4-46.3); WHITE BLOOD COUNT 8.52 K/uL (4.8-10.8)
[2018-03-15 08:18] LABS: CREATININE 0.44 mg/dl (0.60-1.20)
[2018-03-15] MEDS: SERTRALINE HCL 50 MG TAB PO SCH (09:00)
[2018-03-15] MEDS: PANTOprazole SOD 40 MG TAB PO SCH ×2 (09:00→21:00)
[2018-03-15] MEDS: CHOLECALCIFEROL 1000 INTER.UNIT TAB PO SCH (09:00)
[2018-03-15] MEDS ORDERED: ACETAMINOPHEN IV 650 MG in EMPTY BAG 0 ML IV PRN (10:30)
--- NOTE | 2018-03-15 10:33 | Family Medicine Progress Note ---
Progress Note Date of Service Mar 15, 2018. Subjective Pt evaluation today including: conversation w/ patient, physical exam, chart review Pain: Says she has no pain, but complains of a headache PO Intake: Declined food this morning Patient complains of headache and stiff neck this morning. Per nursing she refuses to be repositioned and is refusing to take her morning medications or eat breakfast. Constitutional: No fever, No chills, No sweats Respiratory: + cough, No shortness of breath, No dyspnea at rest Cardiovascular: No chest pain Abdomen: No pain, No nausea, No vomiting, No diarrhea Neurologic: + memory loss, + weakness Endo: + fatigue Medications Current Inpatient Medications Medications (Trade) Dose Ordered Sig/Viky Route Start Time Stop Time Status Last Admin Dose Admin Naloxone HCl (Narcan Inj) 0.1 mg PRN PRN IV 03/11/18 17:00 04/10/18 16:59 Polyethylene (Miralax Powder Packet) 17 gm DAILY PRN PO 03/11/18 17:00 04/10/18 16:59 Levothyroxine Sodium (Synthroid Tab) 75 mcg DAILYBB PO 03/12/18 06:00 04/11/18 06:59 03/12/18 05:54 75 MCG Magnesium Hydroxide (Milk Of Magnesia Susp) 30 ml DAILY PRN PO 03/11/18 17:00 04/10/18 16:59 Ondansetron HCl (Zofran Tab) 4 mg Q8 PRN PO 03/11/18 17:00 04/10/18 16:59 Pantoprazole Sodium (Protonix Tab) 40 mg BID PO 03/11/18 21:00 04/10/18 20:59 03/14/18 21:26 40 MG Senna/Docusate Sodium (Senokot S Tab) 2 tab HS PO 03/11/18 21:00 04/10/18 20:59 03/14/18 21:26 2 TAB Sertraline HCl (Zoloft Tab) 75 mg DAILY PO 03/12/18 09:00 04/11/18 08:59 03/13/18 08:01 75 MG Sodium Biphosphate/ Sodium Phosphate (Fleet Enema) 132 ml DAILY PRN MA 03/11/18 17:00 04/10/18 16:59 Polyethylene (Miralax Powder Packet) 17 gm DAILY PO 03/12/18 09:00 04/11/18 08:59 Future Hold 03/13/18 08:01 17 GM Al Hydrox/Mg Hydrox/Simethicone (Maalox Max Susp) 15 ml Q4H PRN PO 03/11/18 17:00 04/10/18 16:59 Magnesium Hydroxide (Milk Of Magnesia Susp) 30 ml Q12H PRN PO 03/11/18 17:00 04/10/18 16:59 Ergocalciferol (Vitamin D Cap) 50,000 interunit We@0900 PO 03/13/18 09:00 04/12/18 08:59 03/13/18 08:01 50,000 INTERUNIT Cholecalciferol (Vitamin D Tab) 4,000 inter.unit QAM PO 03/12/18 09:00 04/11/18 08:59 03/13/18 08:00 4,000 INTER.UNIT Ondansetron HCl (Zofran Inj) 4 mg Q6H PRN IV 03/12/18 13:30 04/11/18 13:29 Acetaminophen (Tylenol Tab) 650 mg Q6H PRN PO 03/12/18 13:30 04/11/18 13:29 Oxycodone HCl (Roxicodone Immediate Rel Tab) 5 mg Q4H PRN PO 03/12/18 13:30 03/26/18 13:29 03/13/18 11:37 5 MG Morphine Sulfate (MoRPHine SULFATE INJ) 2 mg Q2H PRN IV 03/12/18 13:30 03/26/18 13:29 Naloxone HCl (Narcan Inj) 0.4 mg Q1M PRN IV 03/12/18 13:30 04/11/18 13:29 Polyethylene (Miralax Powder Packet) 17 gm Q6 PO 03/14/18 06:00 04/13/18 05:59 Bisacodyl (Dulcolax Supp) 10 mg DAILY PRN MA 03/12/18 13:30 04/11/18 13:29 Tramadol HCl (Ultram Tab) 50 mg Q4H PRN PO 03/12/18 13:30 04/11/18 13:29 Enoxaparin Sodium (Consult) 1 ea UD PRN N/A 03/12/18 14:45 04/11/18 14:44 Ceftriaxone Sodium 1 gm/ Dextrose 50 ml @ 100 mls/hr Q24H IV 03/12/18 15:30 03/17/18 15:14 03/14/18 15:46 100 MLS/HR Objective Vital Signs Date Time Temp Pulse Resp B/P (MAP) Pulse Ox O2 Delivery O2 Flow Rate FiO2 03/15/18 07:51 37.4 75 16 154/77 (102) 98 Room Air 03/15/18 00:21 Room Air 03/14/18 22:54 37.3 82 18 128/75 (92) 97 Room Air 82 03/14/18 19:18 37.5 81 18 130/78 (95) 95 Room Air 03/14/18 15:30 Room Air 03/14/18 15:29 96 03/14/18 15:25 37.2 74 20 146/83 88 03/14/18 14:20 36.7 78 20 119/74 97 03/14/18 13:50 36.7 77 22 132/80 97 03/14/18 13:20 36.6 82 20 148/68 98 03/14/18 13:05 36.3 85 22 159/81 95 03/14/18 13:05 36.3 85 22 159/81 95 03/14/18 12:50 36.7 81 16 106/65 96 03/14/18 12:15 36.6 75 22 131/71 95 03/14/18 11:15 36.7 82 22 153/79 96 03/14/18 10:45 36.7 86 18 117/72 96 03/14/18 10:15 37.1 81 20 129/68 94 Physical Exam General Appearance: WD/WN, no apparent distress Eyes: normal inspection, PERRL, EOMI Neck: + pertinent finding (Stiff neck patient had difficulty turning head to her right. 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 nml as tested, no motor/sensory deficits Laboratory Results 03/15/18 07:47 Red Blood Count 3.05, Mean Corpuscular Volume 85.6, Mean Corpuscular Hemoglobin 29.8, Mean Corpuscular Hemoglobin Concent 34.9, Mean Platelet Volume 8.7, Neutrophils (%) (Auto) 73.1, Lymphocytes (%) (Auto) 11.0, Monocytes (%) (Auto) 13.5, Eosinophils (%) (Auto) 1.5, Basophils (%) (Auto) 0.4, Neutrophils # (Auto ) 6.23, Lymphocytes # (Auto) 0.94, Monocytes # (Auto) 1.15, Eosinophils # (Auto ) 0.13, Basophils # (Auto) 0.03 03/15/18 07:47 Test 03/15/18 07:47 White Blood Count 8.52 K/uL (4.8-10.8) Red Blood Count 3.05 M/uL (4.2-5.4) Hemoglobin 9.1 g/dL (12.0-16.0) Hematocrit 26.1 % (37-47) Mean Corpuscular Volume 85.6 fL (80-100) Mean Corpuscular Hemoglobin 29.8 pg (25-34) Mean Corpuscular Hemoglobin Concent 34.9 g/dl (32-36) Platelet Count 144 K/uL (130-400) Mean Platelet Volume 8.7 fL (7.4-10.4) Neutrophils (%) (Auto) 73.1 % Lymphocytes (%) (Auto) 11.0 % Monocytes (%) (Auto) 13.5 % Eosinophils (%) (Auto) 1.5 % Basophils (%) (Auto) 0.4 % Neutrophils # (Auto) 6.23 K/uL (1.4-6.5) Lymphocytes # (Auto) 0.94 K/uL (1.2-3.4) Monocytes # (Auto) 1.15 K/uL (0.11-0.59) Eosinophils # (Auto) 0.13 K/uL (0-0.5) Basophils # (Auto) 0.03 K/uL (0-0.2) RDW Standard Deviation 47.8 fL (36.4-46.3) RDW Coefficient of Variation 15.2 % (11.5-14.5) Immature Granulocyte % (Auto) 0.5 % Immature Granulocyte # (Auto) 0.04 K/uL (0.00-0.02) Est Creatinine Clear Calc Drug Dose 60.1 ml/min Estimated GFR () 104.5 Estimated GFR (Non- 90.1 Assessment and Plan 87 y/o F here after a syncopal event with right hip fracture Mental status change - lethargy likely secondary to anemia. -This morning much improved from 24 hours ago but still more lethargic than admission. Decreased urine output -Resolved yesterday afternoon with IV fluids Acute blood loss anemia in the setting of hip surgery - s/p 2 more units of PRBC transfusion (total 4). h/h stable since then. -8.9 this morning continuing to monitor q6h. Right Hip Fracture Repair - day 2 -Weight bearing day 1 post op no PT since then. -Says pain is well controlled. -Refusing repositioning by nurses Syncope - Likely vagal due to immediate micturition prior to fall -ECG normal, spent one night on telemetry with no suggestive findings of cardiac cause UTI - Almost garcia sensitive Klebsiella - I/V rocephin Osteoporosis - vitamin D level low at 11. Replace - Drisdol and D3. Further outpatient mx. Hypothyroid - home meds. FEN -Resuming 1/2 normal saline with 20 mEq Potassium 1L at 100 mL/hr -Declining food today DVT PPx -Lovenox and mechanical prophylaxis. Disposition: -Requiring PT/OT -Returning to [facility] when ready and PT/OT Resident Tracking Resident Involvement: Resident Care Provided Care Provided: Adult Hospital Medicine Reviewed: Pt Seen/Exam by Me History c/o neck pain from keeping his head turned to one side. has been refusing therapy and diet. Constitutional: denies: fever Respiratory: negative: short of breath Cardiovascular: denies chest pain General Appearance: no apparent distress Respiratory: lungs clear, no respiratory distress Cardiovascular: regular rate, rhythm Neurologic/Psychiatric: other (arousable - upset about being asked to move neck and participate in therapy) Skin Characteristics: warm/dry Assessment/Plan Resident Physician Supervision Note: I independently interviewed and examined the patient and verified the maya history and physical, reviewed labs and image studies, discussed the case with the resident Dr. Grant and agree with the findings and care plan.
--- NOTE | 2018-03-15 11:12 | Orthopedic Progress Note ---
Orthopedic Progress Note Date of Service Mar 15, 2018. Subjective Post OP Day: 3 Additional Notes: Patient says she "doesnt feel well". She denies hip pain at rest. I asked if she had neck pain because her head is turned to the left and she is not turning it. She said no. She was not as lethargic as yesterday. She admits she isnt eating or drinking. Objective calves soft nontender, N/V intact, hip located, capillary refill less than 2 sec., dressing C/D/I, toes mobile, CMS intact Patient laying in bed with head and neck turned to the left. Was unable to rotate to the right. Able to get close to neutral but clearly with discomfort. Hip abductor pillow intact. Arben hose on. Date Time Temp Pulse Resp B/P (MAP) Pulse Ox O2 Delivery O2 Flow Rate FiO2 03/15/18 07:51 37.4 75 16 154/77 (102) 98 Room Air 03/15/18 00:21 Room Air 03/14/18 22:54 37.3 82 18 128/75 (92) 97 Room Air 82 03/14/18 19:18 37.5 81 18 130/78 (95) 95 Room Air 03/14/18 15:30 Room Air 03/14/18 15:29 96 03/14/18 15:25 37.2 74 20 146/83 88 03/14/18 14:20 36.7 78 20 119/74 97 03/14/18 13:50 36.7 77 22 132/80 97 03/14/18 13:20 36.6 82 20 148/68 98 03/14/18 13:05 36.3 85 22 159/81 95 03/14/18 13:05 36.3 85 22 159/81 95 03/14/18 12:50 36.7 81 16 106/65 96 03/14/18 12:15 36.6 75 22 131/71 95 03/14/18 11:15 36.7 82 22 153/79 96 Laboratory Results 24 Hours: Test 03/14/18 16:43 03/14/18 19:59 03/15/18 01:52 03/15/18 07:47 Hematocrit 27.3 % 26.8 % 25.4 % 26.1 % Hemoglobin 9.6 g/dL 9.3 g/dL 8.9 g/dL 9.1 g/dL White Blood Count 8.52 K/uL Red Blood Count 3.05 M/uL Mean Corpuscular Volume 85.6 fL Mean Corpuscular Hemoglobin 29.8 pg Mean Corpuscular Hemoglobin Concent 34.9 g/dl Platelet Count 144 K/uL Mean Platelet Volume 8.7 fL Neutrophils (%) (Auto) 73.1 % Lymphocytes (%) (Auto) 11.0 % Monocytes (%) (Auto) 13.5 % Eosinophils (%) (Auto) 1.5 % Basophils (%) (Auto) 0.4 % Neutrophils # (Auto) 6.23 K/uL Lymphocytes # (Auto) 0.94 K/uL Monocytes # (Auto) 1.15 K/uL Eosinophils # (Auto) 0.13 K/uL Basophils # (Auto) 0.03 K/uL Assessment & Plan Assessment: post op day 3 Right hip bipolar hemiarthroplasty Acute blood loss anemia Neck Stiffness Plan: Dressing changed this AM. Hgb improved with blood transfusion. (9.1 today) Encouraged fluids/food. Will speak to Dr Andre about neck stiffness and Medicine per nurse also aware. Patient willing to have IV tylenol. Continue Ice. Patient D/C uncertain, but bed available at SNF Continue Lovenox/TEDS/SCDs Continue Abductor Pillow/SHP Continue PT/OT lovenox on hold until h/h stable. PT encourged. thigh soft with dry dressing PSS Discharge Planning [facility] Pain Management: IV Tylenol, PO Tylenol, Oxy IR DVT Prophylaxis: TEDs, SCDs, Lovenox Therapy: Physical Therapy, Occupational Therapy
[2018-03-15] MEDS ORDERED: BOOST VANILLA OR BOOST GLUCOSE CONTROL CHOCOLATE PO PRN (12:15)
[2018-03-15 14:24] VITALS: Ht 167.6 cm; Wt 43.1 kg
[2018-03-15 15:06] VITALS: BP 124/73; PULSE 70; TEMP 37; O2SAT 96
[2018-03-15 15:55] VITALS: O2SAT 96
[2018-03-15] MEDS: LACTOBACILLUS ACIDOPHILUS (FLORANEX) TAB PO SCH (17:02)
[2018-03-15] MEDS: CEFTRIAXONE SOD INJ 1 GM in DEXTROSE 5% ADD-VANTAGE 50ML 50 ML IV SCH (18:18)
[2018-03-15] MEDS: DOCUSATE SODIUM/SENNA 50/8.6MG TAB PO SCH (21:00)
[2018-03-15] MEDS: BOOST PLUS VANILLA OR BOOST GLUCOSE CONTROL STRAWBERRY PO SCH (21:24)
[2018-03-15 22:54] VITALS: BP 151/78; PULSE 76; TEMP 37.2; O2SAT 96
[2018-03-16] MEDS: POLYETHYLENE (MIRALAX) 17 GM PACK PO SCH ×3 (05:45→12:00)
[2018-03-16] MEDS: LEVOTHYROXINE 75 MCG TAB PO SCH (05:45)
[2018-03-16 06:49] LABS: BASO % 0.3 %; BASO ABS # 0.02 K/uL (0-0.2); EOS % 4.4 %; EOS ABS # 0.33 K/uL (0-0.5); HEMATOCRIT 25.7 % (37-47); HEMOGLOBIN 8.8 g/dL (12.0-16.0); IG# 0.04 K/uL (0.00-0.02); LYMPH % 15.7 %; LYMPH ABS # 1.19 K/uL (1.2-3.4); MEAN CELL VOLUME 87.7 fL (80-100); MEAN CORPUSCULAR HGB CONC 34.2 g/dl (32-36); MEAN PLATELET VOLUME 8.7 fL (7.4-10.4); MONO ABS # 1.14 K/uL (0.11-0.59); NEUT % 64.1 %; NEUT ABS # 4.86 K/uL (1.4-6.5); PLATELET COUNT 191 K/uL (130-400); RED CELL DISTRIBUTION WIDTH CV 15.1 % (11.5-14.5); RED CELL DISTRIBUTION WIDTH SD 46.8 fL (36.4-46.3); WHITE BLOOD COUNT 7.58 K/uL (4.8-10.8)
[2018-03-16] MEDS: LACTOBACILLUS ACIDOPHILUS (FLORANEX) TAB PO SCH ×2 (08:30→12:30)
[2018-03-16] MEDS: BOOST PLUS VANILLA OR BOOST GLUCOSE CONTROL STRAWBERRY PO SCH (09:00)
[2018-03-16] MEDS: CHOLECALCIFEROL 1000 INTER.UNIT TAB PO SCH (09:00)
[2018-03-16] MEDS: SERTRALINE HCL 50 MG TAB PO SCH (09:00)
[2018-03-16] MEDS: PANTOprazole SOD 40 MG TAB PO SCH (09:00)
[2018-03-16 09:02] VITALS: BP 160/84; PULSE 76; TEMP 36.7; O2SAT 96
--- NOTE | 2018-03-16 09:59 | Family Medicine Progress Note ---
Progress Note Date of Service Mar 16, 2018. Subjective Pt evaluation today including: conversation w/ patient, chart review Pain: Improving. No more neck pain. PO Intake: Says she will eat and drink "later". Has since had an ice-cream. Pt is an 87yo female presenting after a fall with a right hip fracture who has undergone surgical repair. Was not too conversant but responded that her pain was better, including her neck pain. Constitutional: + fatigue, No fever Medications Current Inpatient Medications Medications (Trade) Dose Ordered Sig/Viky Route Start Time Stop Time Status Last Admin Dose Admin Naloxone HCl (Narcan Inj) 0.1 mg PRN PRN IV 03/11/18 17:00 04/10/18 16:59 Polyethylene (Miralax Powder Packet) 17 gm DAILY PRN PO 03/11/18 17:00 04/10/18 16:59 Levothyroxine Sodium (Synthroid Tab) 75 mcg DAILYBB PO 03/12/18 06:00 04/11/18 06:59 03/16/18 05:45 75 MCG Magnesium Hydroxide (Milk Of Magnesia Susp) 30 ml DAILY PRN PO 03/11/18 17:00 04/10/18 16:59 Ondansetron HCl (Zofran Tab) 4 mg Q8 PRN PO 03/11/18 17:00 04/10/18 16:59 Pantoprazole Sodium (Protonix Tab) 40 mg BID PO 03/11/18 21:00 04/10/18 20:59 03/14/18 21:26 40 MG Senna/Docusate Sodium (Senokot S Tab) 2 tab HS PO 03/11/18 21:00 04/10/18 20:59 03/14/18 21:26 2 TAB Sertraline HCl (Zoloft Tab) 75 mg DAILY PO 03/12/18 09:00 04/11/18 08:59 03/13/18 08:01 75 MG Sodium Biphosphate/ Sodium Phosphate (Fleet Enema) 132 ml DAILY PRN [place] 03/11/18 17:00 04/10/18 16:59 Polyethylene (Miralax Powder Packet) 17 gm DAILY PO 03/12/18 09:00 04/11/18 08:59 Future Hold 03/13/18 08:01 17 GM Al Hydrox/Mg Hydrox/Simethicone (Maalox Max Susp) 15 ml Q4H PRN PO 03/11/18 17:00 04/10/18 16:59 Magnesium Hydroxide (Milk Of Magnesia Susp) 30 ml Q12H PRN PO 03/11/18 17:00 04/10/18 16:59 Ergocalciferol (Vitamin D Cap) 50,000 interunit We@0900 PO 03/13/18 09:00 04/12/18 08:59 03/13/18 08:01 50,000 INTERUNIT Cholecalciferol (Vitamin D Tab) 4,000 inter.unit QAM PO 03/12/18 09:00 04/11/18 08:59 03/13/18 08:00 4,000 INTER.UNIT Ondansetron HCl (Zofran Inj) 4 mg Q6H PRN IV 03/12/18 13:30 04/11/18 13:29 Acetaminophen (Tylenol Tab) 650 mg Q6H PRN PO 03/12/18 13:30 04/11/18 13:29 Oxycodone HCl (Roxicodone Immediate Rel Tab) 5 mg Q4H PRN PO 03/12/18 13:30 03/26/18 13:29 03/13/18 11:37 5 MG Morphine Sulfate (MoRPHine SULFATE INJ) 2 mg Q2H PRN IV 03/12/18 13:30 03/26/18 13:29 Naloxone HCl (Narcan Inj) 0.4 mg Q1M PRN IV 03/12/18 13:30 04/11/18 13:29 Polyethylene (Miralax Powder Packet) 17 gm Q6 PO 03/14/18 06:00 04/13/18 05:59 03/16/18 05:45 17 GM Bisacodyl (Dulcolax Supp) 10 mg DAILY PRN [place] 03/12/18 13:30 04/11/18 13:29 Tramadol HCl (Ultram Tab) 50 mg Q4H PRN PO 03/12/18 13:30 04/11/18 13:29 Ceftriaxone Sodium 1 gm/ Dextrose 50 ml @ 100 mls/hr Q24H IV 03/12/18 15:30 03/17/18 15:14 03/15/18 18:18 100 MLS/HR Acetaminophen 650 mg/Empty Bag 65 ml @ 260 mls/hr Q6H PRN IV 03/15/18 10:30 04/14/18 10:29 03/15/18 11:38 260 MLS/HR Lactobacillus Acidophilus (Floranex Tab) 4 tab TIDM PO 03/15/18 17:45 04/14/18 17:44 Enteral Nutritional Formula (Boost Plus Vanilla) 1 can BID PO 03/15/18 21:00 04/14/18 20:59 03/15/18 21:24 1 CAN Objective Vital Signs Date Time Temp Pulse Resp B/P (MAP) Pulse Ox O2 Delivery O2 Flow Rate FiO2 03/16/18 09:02 36.7 76 16 160/84 (109) 96 Room Air 03/16/18 07:45 Room Air 03/16/18 00:00 Nasal Cannula 03/15/18 22:54 37.2 76 16 151/78 (102) 96 Room Air 03/15/18 15:55 96 Room Air 03/15/18 15:06 37.0 70 16 124/73 (90) 96 Physical Exam General Appearance: no apparent distress Neck: supple, + pertinent finding Respiratory/Chest: lungs clear, no respiratory distress Cardiovascular: regular rate, rhythm, no JVD Extremities: + pertinent finding (R hip mildly tender) Laboratory Results 03/16/18 06:30 Red Blood Count 2.93, Mean Corpuscular Volume 87.7, Mean Corpuscular Hemoglobin 30.0, Mean Corpuscular Hemoglobin Concent 34.2, Mean Platelet Volume 8.7, Neutrophils (%) (Auto) 64.1, Lymphocytes (%) (Auto) 15.7, Monocytes (%) (Auto) 15.0, Eosinophils (%) (Auto) 4.4, Basophils (%) (Auto) 0.3, Neutrophils # (Auto ) 4.86, Lymphocytes # (Auto) 1.19, Monocytes # (Auto) 1.14, Eosinophils # (Auto ) 0.33, Basophils # (Auto) 0.02 Test 03/16/18 06:30 White Blood Count 7.58 K/uL (4.8-10.8) Red Blood Count 2.93 M/uL (4.2-5.4) Hemoglobin 8.8 g/dL (12.0-16.0) Hematocrit 25.7 % (37-47) Mean Corpuscular Volume 87.7 fL (80-100) Mean Corpuscular Hemoglobin 30.0 pg (25-34) Mean Corpuscular Hemoglobin Concent 34.2 g/dl (32-36) Platelet Count 191 K/uL (130-400) Mean Platelet Volume 8.7 fL (7.4-10.4) Neutrophils (%) (Auto) 64.1 % Lymphocytes (%) (Auto) 15.7 % Monocytes (%) (Auto) 15.0 % Eosinophils (%) (Auto) 4.4 % Basophils (%) (Auto) 0.3 % Neutrophils # (Auto) 4.86 K/uL (1.4-6.5) Lymphocytes # (Auto) 1.19 K/uL (1.2-3.4) Monocytes # (Auto) 1.14 K/uL (0.11-0.59) Eosinophils # (Auto) 0.33 K/uL (0-0.5) Basophils # (Auto) 0.02 K/uL (0-0.2) RDW Standard Deviation 46.8 fL (36.4-46.3) RDW Coefficient of Variation 15.1 % (11.5-14.5) Immature Granulocyte % (Auto) 0.5 % Immature Granulocyte # (Auto) 0.04 K/uL (0.00-0.02) Red Blood Cell Morphology Unremarkable Assessment and Plan Pt is an 87yo female presenting after a fall with a right hip fracture who has undergone surgical repair. Right Hip fracture, Day 3 post-op -States pain improving and controlled Decreased urine output -Resolved, adequate output overnight and today Acute blood loss anemia in the setting of hip surgery - s/p 4 PRBC transfusion - H/H stable Syncope worked up, no cardiac cause seen UTI - Being treated with I/V rocephin Osteoporosis - low vitamin D level -Will be managed outpatient Hypothyroidism - home meds. FEN -Eating attempts, ice-cream today. DVT PPx -Lovenox and mechanical prophylaxis. Disposition: -Stable to be discharged to [facility] -Requiring PT/OT Resident Tracking Resident Involvement: Resident Care Provided Care Provided: Adult [facility] Medicine Assessment/Plan Resident Physician Supervision Note: I independently interviewed and examined the patient and verified the maya history and physical, reviewed labs and image studies, discussed the case with the resident Dr. Grant and agree with the findings and care plan.
[2018-03-16] MEDS ORDERED: VTMD1000 PO (14:00)
--- NOTE | 2018-03-16 14:04 | Discharge Instructions ---
Discharge Instructions Date of Service Mar 16, 2018. Admission Reason for Admission: Subcapital Fracture Of Right Hip,Syncope Discharge Discharge Diagnosis / Problem: Fracture of R hip Discharge Goals Goal(s): Improve function Activity Recommendations Activity Level: Assistance Required Therapies: Physical Therapy, Occupational Therapy .WBAT RLE with assistance of walker Abduction pillow between knees when in bed Standard pillow between knees when sitting in a chair. Change dressings to right hip daily and PRN. Keep incision covered. Beginning 03/16/18, if incision clean and dry, okay to shower, pat incision dry. Redress after bathing. Posterior hip precautions at all times right hip. PT/OT - allowed for ROM, strengthening exercises as tolerated. Call [phone] with any questions, drainage from incision, fever, etc. Follow up with Dr. Andre at 11:45 a.m. on 03/25/18 Additional Information Patient informed of condition: Yes Advance Directives: No DNR: Yes Level of Care: Skilled Communicable Disease: No Prognosis: Stable Current Hospital Diet Patient's current hospital diet: Regular Diet Discharge Diet Recommended Diet: Regular Diet Procedures Procedures Performed: Right Cemented Bipolar Hip Pending Studies Studies pending at discharge: no Medical Emergencies . Who to Call and When: Medical Emergencies: If at any time you feel your situation is an emergency, please call 911 immediately. . Non-Emergent Contact Non-Emergency issues call your: Primary Care Provider . . "Provider Documentation" section prepared by Radha Ennis. . Analytical Consultant Recommendations Analytical Consultant Recommendations: WBAT RLE with assistance of walker Abduction pillow between knees when in bed Standard pillow between knees when sitting in a chair. Change dressings to right hip daily and PRN. Keep incision covered. Beginning 03/16/18, if incision clean and dry, okay to shower, pat incision dry. Redress after bathing. Posterior hip precautions at all times right hip. PT/OT - allowed for ROM, strengthening exercises as tolerated. Call [phone] with any questions, drainage from incision, fever, etc. Follow up with Dr. Andre at 11:45 a.m. on 03/25/18 Core Measure Problem Core Measures: None
[2018-03-16 14:30] VITALS: BP 160/84; PULSE 76; TEMP 36.7; O2SAT 96
[2018-03-16 15:12] VITALS: BP 114/73; PULSE 96; TEMP 36.8; O2SAT 96
--- NOTE | 2018-03-17 15:12 | Discharge Summary ---
Discharge Summary Date of Service Mar 17, 2018. Discharge Summary Admission Date: Mar 11, 2018 at 17:00 Discharge Date: Mar 16, 2018 [facility] Principal Diagnosis: Right hip fracture Problems/Secondary Diagnoses: Acute blood loss anemia Severe Osteoporosis Vitamin D deficiency - Severe Dementia Immunizations: Have You Had Influenza Vaccine: Unknown History of Tetanus Vaccine?: Unknown History of Pneumococcal: Unknown History of Hepatitis B Vaccine: Unknown Procedures: R cemented Bipolar Hip/ R hip hemiarthroplasty Consultations: Orthopedics Medication Reconciliation New Medications: Enoxaparin (Lovenox) 30 Mg/0.3 Ml Inj 30 MG SQ Q12H for 42 Days, SYR Cholecalciferol (Vitamin D3) 1,000 Inter.unit Tab 4000 INTER.UNIT PO QAM, #1 TAB Continued Medications: Acetaminophen (Tylenol) 325 Mg Tab 650 MG PO Q6H PRN for Pain or Fever, TAB MAX 3 GRAMS/24 HOURS. Bisacodyl (Dulcolax) 10 Mg Sup 1 SUPP MN Q48 HRS PRN for Constipation, SUP Levothyroxine Sodium (Levothyroxine Sodium) 75 Mcg Tab 75 MCG PO QAM for 90 Days, #90 TAB 3 Refills Magnesium Hydroxide (Milk Of Magnesia) 30 Ml Susp 30 ML PO Q48HR PRN for IF NO BM 2 DAYS., ML Ondansetron Hcl (Zofran) 4 Mg Tab 4 MG PO Q8 PRN for Nausea or Vomiting, TAB Pantoprazole (Protonix) 40 Mg Tab 40 MG PO BID, #30 TAB Polyethylene Glycol 3350 (Miralax) 1 Pow Pow 17 GM PO DAILY, #255 GM HOLD FOR LOOSE STOOLS Senna/Docusate Sod (Senokot S) 1 Tab Tab 2 TAB PO HS, TAB Sertraline (Zoloft) 50 Mg Tab 75 MG PO DAILY, TAB Sodium Phosphate/Biphosphate (Fleet Enema) Maria Ines 1 EA MN Q72HRS PRN for IF NO RESULTS FROM MOM, BTL Discharge Exam Pt is an 87yo female presenting after a fall with a right hip fracture who has undergone surgical repair. Was not too conversant but responded that her pain was better, including her neck pain. Review of Systems: Constitutional: No fever, No chills Respiratory: No shortness of breath Cardiovascular: No chest pain, No palpitations Physical Exam: General Appearance: no apparent distress Neck: supple Respiratory/Chest: lungs clear, no respiratory distress Cardiovascular: regular rate, rhythm, no JVD Extremities: + pertinent finding (R hip mildly tender) Hospital Course 03/11 Pt with Hx of dementia presented to ED after a witnessed fall with injury to the R. hip. Imaging showed no acute cardiopulmonary abnormality and a subcapital R hip and R superior ramus fracture. Pt admitted and orthopedics was consulted. 03/12 Pt underwent a R cemented bipolar hip procedure/ right hemiarthroplasty. She tolerated the procedure well but her H/H dropped after surgery and she received 1 unit of PRBCs. Her pain was well controlled. Also has UTI. IV Rocephin started. 03/13 Pain well controlled, a bit confused. PT/OT begun. Received another unit of PRBCs. 03/14 Transfused another 2 units of PRBCs for a total of 4 units. 03/15 H/H improved. Refusing to eat. Low urine output resolved by administration of IV fluids day before. 03/16 Pt stable enough for discharge. H/H at discharge of 8.8/25.7. Discharged to [facility]. Severe vitamin D deficiency - vitamin D3 4000units daily added. Lovenox 30mgs daily for 6 wks - per Dr. Andre. Ortho instructions - WBAT RLE with assistance of walker Abduction pillow between knees when in bed Standard pillow between knees when sitting in a chair. Change dressings to right hip daily and PRN. Keep incision covered. Beginning 03/16/18, if incision clean and dry, okay to shower, pat incision dry. Redress after bathing. Posterior hip precautions at all times right hip. PT/OT - allowed for ROM, strengthening exercises as tolerated. Call [phone] with any questions, drainage from incision, fever, etc. Follow up with Dr. Andre at 11:45 a.m. on 03/25/18 Total Time Spent: Greater than 30 minutes This includes examination of the patient, discharge planning, medication reconciliation, and communication with other providers. Discharge Instructions Please refer to the electronic Patient Visit Report (Discharge Instructions) for additional information. Additional Copies To Salo Dong M.D.; Bakari Andre M.D. Reviewed: Pt Seen/Exam by Me History continues to refuse to eat Constitutional: denies: fever Respiratory: negative: short of breath Cardiovascular: denies chest pain General Appearance: no apparent distress Respiratory: lungs clear, no respiratory distress Cardiovascular: regular rate, rhythm Neurologic/Psychiatric: other (somnolent - easily arousable. refusing to eat. ) Assessment/Plan Resident Physician Supervision Note: I independently interviewed and examined the patient and verified the maya history and physical, reviewed labs and image studies, discussed the case with the resident Dr. Ennis and agree with the findings and care plan. Time spent in discharge 40min
[2018-03-17] MEDS ORDERED: ENOX30IN4 SQ (15:55)
== END 2018-03-16 16:15 | DRG 470 ==
LOC: EDBD 15:28 → C.EDB 15:29 → C.2T 17:00 → ENRESERV 17:18 → CANRESERV 03-13 08:35 → ENRESERV 03-13 08:35 → C.MSN 03-13 11:09
PROVIDERS: ADMIT Family Medicine; ATTEND Family Medicine
PROC: 0T9B70Z Drainage of Bladder with Drainage Device, Via Natural or Artificial Opening (ICD-10-PCS; 2018-03-11)
PROC: 0SR90J9 Replacement of Right Hip Joint with Synthetic Substitute, Cemented, Open Approach (ICD-10-PCS; principal; 2018-03-12 09:30)
DX: M80.051A Age-related osteoporosis with current pathological fracture, right femur, initial encounter for fracture (principal); D62 Acute posthemorrhagic anemia; N39.0 Urinary tract infection, site not specified; B96.1 Klebsiella pneumoniae [K. pneumoniae] as the cause of diseases classified elsewhere; R55 Syncope and collapse; M54.2 Cervicalgia; F03.90 Unspecified dementia, unspecified severity, without behavioral disturbance, psychotic disturbance, mood disturbance, and anxiety; E03.9 Hypothyroidism, unspecified; K21.9 Gastro-esophageal reflux disease without esophagitis; F32.9 Major depressive disorder, single episode, unspecified; F41.9 Anxiety disorder, unspecified; Z51.81 Encounter for therapeutic drug level monitoring; Z79.899 Other long term (current) drug therapy; Z66 Do not resuscitate; Z88.0 Allergy status to penicillin; Z88.8 Allergy status to other drugs, medicaments and biological substances; W19.XXXA Unspecified fall, initial encounter; Y92.129 Unspecified place in nursing home as the place of occurrence of the external cause; Y99.8 Other external cause status

== ENCOUNTER → 2018-03-19 | Outpatient (CLI) | payer OTHER ==
[~2018-03-19] MED LIST changes: +ENOX30IN4 SQ; +VTMD1000 PO
[2018-03-19 10:42] LABS: HEMATOCRIT 27.4 % (37-47); HEMOGLOBIN 9.1 g/dL (12.0-16.0)
== END | disposition home or self-care (01) ==
LOC: C.LABFOXAE 08:06
PROVIDERS: ATTEND Internal Medicine
DX: D64.9 Anemia, unspecified (principal)

== ENCOUNTER → 2018-03-20 | Outpatient (CLI) | payer OTHER ==
[2018-03-20 08:34] LABS: HEMATOCRIT 27.2 % (37-47); HEMOGLOBIN 9.1 g/dL (12.0-16.0)
== END | disposition home or self-care (01) ==
LOC: C.LABFOXAE 08:16
PROVIDERS: ATTEND Internal Medicine
DX: D64.9 Anemia, unspecified (principal)

== ENCOUNTER → 2018-04-08 | Outpatient (CLI) | payer OTHER | END | disposition home or self-care (01) | LOC: C.LABFOXAE 21:33 | PROVIDERS: ATTEND Internal Medicine | DX: R33.9 Retention of urine, unspecified (principal) ==